=== PATIENT | male | born 1940 | race Caucasian/White ===

== ENCOUNTER 2016-06-15 23:25 | Inpatient (IN) | payer MEDICARE ==
[~2016-06-15] VITALS: Ht 182.9 cm; Wt 112.7 kg
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
[2016-06-16] MEDS ORDERED: DOCU100C5 PO (00:15)
[2016-06-16] MEDS ORDERED: FINA5TAB PO (00:15)
[2016-06-16] MEDS ORDERED: OMEG1CAP38 PO (00:15)
[2016-06-16] MEDS ORDERED: MEMA10TA PO (00:15)
[2016-06-16] MEDS ORDERED: ASPI81TA9 PO (00:15)
[2016-06-16] MEDS ORDERED: MULT1TAB52 PO (00:15)
[2016-06-16] MEDS ORDERED: CYAN10005 PO (00:15)
[2016-06-16] MEDS ORDERED: CHLO25TA4 PO (00:15)
[2016-06-16] MEDS ORDERED: DIVA250T PO ×2 (00:15)
[2016-06-16] MEDS ORDERED: AMLO2.5T PO (00:15)
[2016-06-16] MEDS ORDERED: ACET325T9 PO (00:15)
[2016-06-16] MEDS ORDERED: VITA1TAB3 PO (00:15)
[2016-06-16] MEDS ORDERED: TAMS0.4C97 PO (00:15)
[2016-06-16] MEDS ORDERED: PARO40TA3 PO (00:15)
[2016-06-16] MEDS ORDERED: LORA1TAB PO (00:15)
[2016-06-16] MEDS ORDERED: DONE10TA7 PO (00:15)
[2016-06-16] MEDS ORDERED: THIA250T2 PO (00:37)
[2016-06-16] MEDS ORDERED: OLOP2.5D OU (00:37)
[2016-06-16] MEDS ORDERED: ACET325T21 PO (00:37)
[2016-06-16] MEDS ORDERED: TRAZ50TA15 PO (00:37)
[2016-06-16] MEDS ORDERED: MAGN400O4 PO (00:37)
[2016-06-16] MEDS ORDERED: QUET50TA PO (00:37)
[2016-06-16] MEDS ORDERED: DILT60TA PO (00:37)
[2016-06-16] MEDS ORDERED: QUET100T PO (00:37)
[2016-06-16 00:44] LABS: SALIC 1.6 mg/dL (2.8-20.0)
[2016-06-16 00:45] LABS: ACETAMIN < 2.0 mcg/mL (10-30); ETHANOL < 10 mg/dL (0-10)
[2016-06-16 00:48] LABS: BASO # 0.1 x10^3/uL (0.0-0.2); BASO % 1 % (0-3); EOS # 0.5 x10^3/uL (0.0-0.7); EOS % 6 % (0-3); HEMATOCRIT 44.2 % (39.0-53.0); HEMOGLOBIN 14.3 g/dL (13.0-17.5); LYMPH # 1.8 x10^3/uL (1.0-4.8); LYMPH % 22 % (24-48); MEAN CORPUSCULAR HEMOGLOBIN 30 pg (25-35); MEAN CORPUSCULAR HGB CONC 32 g/dL (31-37); MEAN CORPUSCULAR VOLUME 92 fL (79-100); MONO # 0.9 x10^3/uL (0.0-1.1); MONO % 11 % (0-9); NEUT # 5.3 x10^3uL (1.8-7.7); NEUT % 61 % (31-73); PLATELET COUNT 115 x10^3/uL (140-400); RED BLOOD COUNT 4.82 x10^6/uL (4.30-5.70); RED CELL DISTRIBUTION WIDTH 15.5 % (11.5-14.5); WHITE BLOOD COUNT 8.6 x10^3/uL (4.0-11.0)
[2016-06-16 00:53] LABS: ALBUMIN 3.4 g/dL (3.4-5.0); ALBUMIN/GLOBULIN RATIO 0.9 (1.0-1.7); CALCIUM 8.8 mg/dL (8.5-10.1); POTASSIUM 3.9 mmol/L (3.5-5.1); TOTAL BILIRUBIN 0.2 mg/dL (0.2-1.0); TOTAL PROTEIN 7.3 g/dL (6.4-8.2)
[2016-06-16 01:44] LABS: VAL ACID 41 mcg/mL (50-100)
[2016-06-16 01:52] LABS: BARBITURATES NEG (NEG); BENZODIAZEPINES NEG (NEG); CANNABINOIDS NEG (NEG); COCAINE NEG (NEG); METHADONE NEG (NEG); OPIATES NEG (NEG); PHENCYCLIDINE NEG (NEG)
[2016-06-16 01:54] LABS: BACTERIA,URINE 0 /HPF (0-FEW); BILIRUBIN,URINE NEG (NEG); CLARITY,URINE CLEAR; COLOR,URINE YELLOW; GLUCOSE,URINE NEG (NEG); NITRITE,URINE NEG (NEG); RBC,URINE 0 /HPF (0-2); UROBILINOGEN,URINE 0.2 mg/dL (0.2 mg/dL); WBC,URINE RARE /HPF (0-4)
[2016-06-16 01:55] LABS: AMPHETAMINE/METHAMPHETAMINE NEG (NEG)
--- NOTE | 2016-06-16 02:05 | ACF ---
Admission Criteria Forms PSYCHIATRIC DISORDERS Clinical Indications for Inpatient Care (Place 'X' for any and all applicable criteria): Ongoing inpatient care may be needed for ANY ONE of the following(1)(2)(3)(4)(6) (7)(8): [ ]I. Danger to self or others not manageable at lower level of care. [ ]II. Grave disability (eg, inability to perform self care necessary at lower level of care) [X]III. Agitation or inappropriate behavior interfering with care for primary condition (eg, attempting to discontinue lines or drains prematurely, unable to cooperate with respiratory care) [ ]IV. Severe disability or disorder indicated by ALL of the following: [ ]a) Severe behavioral health disorder-related symptoms or condition indicated by ANY ONE of the following: [ ]i) Severe problem with cognition, memory, judgment, or impulse control [ ]ii) Severe clinical manifestations (eg, hallucinations, delusions, other acute psychotic symptoms, franco, extreme agitation or anxiety) [ ]b) Patient management at lower level of care is not feasible until acute intervention or modification is initiated. Extended stay beyond goal length of stay for the primary condition may be indicated when ANY ONE of the following is present: (1)(2)(3)(4): [ ]a) Patient is a danger to self or others and not manageable at lower level of care. [ ]b) Behavior crisis management, including physical or chemical restraints, is required and is not available at a lower level of care. [ ]c) Behavioral symptoms (e.g., agitation, somnolence, inappropriate behavior) are present, and are not manageable at a lower level of care. [ ]d) Patient cannot understand follow-up treatment and crisis plan. [ ]e) Provider and supports are not sufficiently available at lower level of care. [ ]f) Patient cannot participate (e.g., verify absence of plan for harm) and is in needed of monitoring. The original [employer] content created by [employer] has been revised. The portions of the content which have been revised are identified through the use of italic text or in bold, and [facility] has neither reviewed nor approved the modified material. All other unmodified content is copyright [facility] [employer]. Please see references footnoted in the original [facility] edition 2016 Admission Criteria Met?: Yes MURPHY LAND Jun 16, 2016 02:05
[2016-06-16] MEDS ORDERED: MAG HYDROX/AL HYDROX/SIMETH 30 ML ORAL.SUSP PO PRN (03:15)
[2016-06-16] MEDS ORDERED: MAGNESIUM HYDROXIDE 2,400 MG/30 ML ORAL.SUSP. PO PRN ×2 (03:15→03:45)
[2016-06-16] MEDS ORDERED: ACETAMINOPHEN 325 MG TABLET PO PRN (03:15)
[2016-06-16] MEDS ORDERED: METHYL SALICYLATE/MENTHOL TOPICAL OINTMENT 29GM TUBE. TP PRN (03:15)
[2016-06-16] MEDS: ACETAMINOPHEN 325 MG TABLET PO PRN (04:20)
[2016-06-16 05:12] VITALS: BP 173/79
[2016-06-16] MEDS: LORAZEPAM 1 MG TABLET. PO PRN ×2 (05:57→22:40)
--- NOTE | 2016-06-16 06:43 | EKG ---
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
--- NOTE | 2016-06-16 07:48 | RAD ---
Portable chest, 06/15/2016: History: Altered level of consciousness Comparison is made to a study from 06/26/2011. The heart size and pulmonary vascularity are normal. A density at the cardiac apex is probably due to a prominent epicardial fat pad. No acute infiltrates are seen. There is no evidence of pleural fluid. Mild degenerative change is present in the spine and at both shoulders. IMPRESSION: No acute cardiopulmonary abnormality is detected.
[2016-06-16] MEDS: ASPIRIN ENTERIC COATED 81 MG TABLET.DR. PO SCH (09:14)
[2016-06-16] MEDS: OMEGA-3 FATTY ACIDS/FISH OIL 1,000 MG CAPSULE. PO SCH (09:14)
[2016-06-16] MEDS: MULTIVITAMIN I-VITE TABLET. PO SCH (09:14)
[2016-06-16] MEDS: FINASTERIDE 5 MG TABLET PO SCH (09:14)
[2016-06-16] MEDS: DOCUSATE SODIUM 100 MG CAPSULE PO SCH (09:14)
[2016-06-16] MEDS: CYANOCOBALAMIN (VITAMIN B-12) 1,000 MCG TABLET. PO SCH (09:14)
[2016-06-16] MEDS: DILTIAZEM HCL 120 MG CAP.ER.24H PO SCH (09:14)
[2016-06-16] MEDS: THIAMINE 100 MG TABLET. PO SCH ×2 (09:15→22:19)
[2016-06-16] MEDS: QUEtiapine 50 MG TABLET. PO SCH (09:15)
[2016-06-16] MEDS: DIVALPROEX ER 250 MG TAB.ER.24H. PO SCH ×2 (09:16→22:20)
[2016-06-16] MEDS: DONEPEZIL HCL 10 MG TABLET PO SCH (09:16)
[2016-06-16] MEDS: MEMANTINE 10 MG TABLET. PO SCH ×2 (09:16→22:19)
[2016-06-16] MEDS: KETOTIFEN FUMARATE 0.025% OPHT SOLUTION BOTTLE. OU SCH ×2 (09:19→22:23)
[2016-06-16] MEDS: CHLORPROMAZINE HCL 25 MG PO SCH ×2 (09:20→22:23)
[2016-06-16] MEDS: ACETAMINOPHEN 325 MG TABLET PO SCH ×2 (09:27→22:19)
[2016-06-16 09:30] VITALS: BP 160/92
[2016-06-16 13:41] LABS: THYROID STIM HORMONE (TSH) 6.718 uIU/mL (0.358-3.740)
[2016-06-16 15:54] VITALS: BP 145/78
[2016-06-16 17:09] LABS: T3 TOTAL 91 ng/dL (71-180); THYROXINE 4.5 ug/dL (4.5-12.0)
--- NOTE | 2016-06-16 21:07 | PDOC ---
Exam Jake Demential Exam: Jake Note: Please also refer to the separate dictated note~for this date of service dictated separately.~Patient seen individually. Discussed the patient with Nursing staff reviewed the chart.~Reviewed interim history and current functioning. Reviewed vital signs,~Labs/ Radiology~and current medications noted below. Continue current treatment with the changes noted in the dictated addendum note Assessment: Vital Signs: Vital Signs Date Time Temp Pulse Resp B/P Pulse Ox O2 Delivery O2 Flow Rate FiO2 06/16/16 15:54 97.8 107 20 145/78 94 06/16/16 05:12 Room Air I&O Intake and Output 06/16/16 07:00 # Voids 2 Labs: Laboratory Tests Test 06/16/16 00:18 06/16/16 00:48 06/16/16 01:30 06/16/16 09:35 White Blood Count 8.6x10^3/uL (4.0-11.0) Red Blood Count 4.82x10^6/uL (4.30-5.70) Hemoglobin 14.3g/dL (13.0-17.5) Hematocrit 44.2% (39.0-53.0) Mean Corpuscular Volume 92fL (79-100) Mean Corpuscular Hemoglobin 30pg (25-35) Mean Corpuscular Hemoglobin Concent 32g/dL (31-37) Red Cell Distribution Width 15.5% (11.5-14.5) H Platelet Count 115x10^3/uL (140-400) L Neutrophils (%) (Auto) 61% (31-73) Lymphocytes (%) (Auto) 22% (24-48) L Monocytes (%) (Auto) 11% (0-9) H Eosinophils (%) (Auto) 6% (0-3) H Basophils (%) (Auto) 1% (0-3) Neutrophils # (Auto) 5.3x10^3uL (1.8-7.7) Lymphocytes # (Auto) 1.8x10^3/uL (1.0-4.8) Monocytes # (Auto) 0.9x10^3/uL (0.0-1.1) Eosinophils # (Auto) 0.5x10^3/uL (0.0-0.7) Basophils # (Auto) 0.1x10^3/uL (0.0-0.2) Prothrombin Time 10.4SEC (9.4-11.4) Prothrombin Time INR 1.0 (0.9-1.1) Sodium Level 146mmol/L (136-145) H Potassium Level 3.9mmol/L (3.5-5.1) Chloride Level 108mmol/L (98-107) H Carbon Dioxide Level 29mmol/L (21-32) Anion Gap 9 (6-14) Blood Urea Nitrogen 17mg/dL (8-26) Creatinine 1.0mg/dL (0.7-1.3) Estimated GFR (Cockcroft-Gault) 73.0 BUN/Creatinine Ratio 17 (6-20) Glucose Level 97mg/dL (70-99) Calcium Level 8.8mg/dL (8.5-10.1) Total Bilirubin 0.2mg/dL (0.2-1.0) Aspartate Amino Transferase (AST) 6U/L (15-37) L Alanine Aminotransferase (ALT) 17U/L (16-63) Alkaline Phosphatase 74U/L (46-116) Ammonia 29mcmol/L (11-34) Total Protein 7.3g/dL (6.4-8.2) Albumin 3.4g/dL (3.4-5.0) Albumin/Globulin Ratio 0.9 (1.0-1.7) L Salicylates Level 1.6mg/dL (2.8-20.0) L Salicylate Last Dose Date Unknown Salicylate Last Dose Time Unknown Acetaminophen Level < 2.0mcg/mL (10-30) L Acetaminophen Last Dose Date Unknown Acetaminophen Last Dose Time Unknown Valproic Acid Level 41mcg/mL (50-100) L Valproic Acid Last Dose Date Unknown Valproic Acid Last Dose Time Unknown Ethyl Alcohol Level < 10mg/dL (0-10) Acetone Level Neg (NEG) Magnesium Level 2.1mg/dL (1.8-2.4) Iron Level 48ug/dL (65-175) L Total Iron Binding Capacity 294ug/dL (250-450) Iron Saturation 16% (15-34) Triglycerides Level 248mg/dL (0-150) H Cholesterol Level 198mg/dL (0-200) LDL Cholesterol, Calculated 120mg/dL (0-100) H VLDL Cholesterol, Calculated 49mg/dL (0-40) H HDL Cholesterol 29mg/dL (40-60) L Cholesterol/HDL Ratio 6.0 Vitamin B12 Level 1569pg/mL (247-911) H Thyroid Stimulating Hormone (TSH) 6.718uIU/mL (0.358-3.740) Free Triiodothyronine (T3) pg/mL 2.36pg/mL (2.18-3.98) Urine Collection Type Unknown Urine Color Yellow Urine Clarity Clear Urine pH 5.5 Urine Specific [place] 1.015 Urine Protein Neg (NEG-TRACE) Urine Glucose (UA) Negmg/dL (NEG) Urine Ketones (Stick) Negmg/dL (NEG) Urine Blood Neg (NEG) Urine Nitrite Neg (NEG) Urine Bilirubin Neg (NEG) Urine Urobilinogen Dipstick 0.2mg/dL (0.2 mg/dL) Urine Leukocyte Esterase Neg (NEG) Urine RBC 0/HPF (0-2) Urine WBC Rare/HPF (0-4) Urine Squamous Epithelial Cells None/LPF Urine Bacteria 0/HPF (0-FEW) Urine Opiates Screen Neg (NEG) Urine Methadone Screen Neg (NEG) Urine Barbiturates Neg (NEG) Urine Phencyclidine Screen Neg (NEG) Urine Amphetamine/Methamphetamine Neg (NEG) Urine Benzodiazepines Screen Neg (NEG) Urine Cocaine Screen Neg (NEG) Urine Cannabinoids Screen Neg (NEG) Urine Ethyl Alcohol Neg (NEG) 25-Hydroxy Vitamin D Total Pending Thyroxine (T4) 4.5ug/dL (4.5-12.0) Total Triiodothyronine (TT3) 91ng/dL (71-180) RPR Titer Additional Testing Pending Current Medications: Meds: Current Medications Acetaminophen (Tylenol) 650 mg PRN Q6HRS PRN PO PAIN / TEMP; Start 06/16/16 at 03:15; Status Cancel Multi-Ingredient Ointment (Analgesic [place]) 1 sajan PRN QID PRN TP MUSCLE PAIN; Start 06/16/16 at 03:15 Al Hydroxide/Mg Hydroxide (Mylanta Plus Xs) 15 ml PRN AFTMEALHC PRN PO DYSPEPSIA; Start 06/16/16 at 03:15 Magnesium Hydroxide (Milk Of Magnesia) 2,400 mg PRN QHS PRN PO CONSTIPATION; Start 06/16/16 at 03:15 Chlorpromazine HCl (Thorazine) 12.5 mg BID PO Last administered on 06/16/16 09 :20; Start 06/16/16 at 09:00 Divalproex Sodium (Depakote Er) 375 mg BID PO Last administered on 06/16/16 09 :16; Start 06/16/16 at 09:00 Donepezil HCl (Aricept) 10 mg DAILY PO Last administered on 06/16/16 09:16; Start 06/16/16 at 09:00 Lorazepam (Ativan) 1 mg PRN Q4HRS PRN PO ANXIETY / AGITATION Last administered on 06/16/16 05:57; Start 06/16/16 at 03:45 Memantine (Namenda) 10 mg BID PO Last administered on 06/16/16 09:16; Start at 09:00 Quetiapine Fumarate (SEROquel) 50 mg DAILY PO Last administered on 06/16/16 09 :15; Start 06/16/16 at 09:00 Quetiapine Fumarate (SEROquel) 100 mg HS PO ; Start 06/16/16 at 21:00 Trazodone HCl (Desyrel) 50 mg HS PO ; Start 06/16/16 at 21:00 Acetaminophen (Tylenol) 650 mg BID PO Last administered on 06/16/16 09:27; Start 06/16/16 at 09:00 Acetaminophen (Tylenol) 650 mg PRN Q4HRS PRN PO Pain/Fever Last administered on 06/16/16 04:20; Start 06/16/16 at 03:45 Aspirin (Aspirin Enteric Coated) 81 mg DAILY PO Last administered on 06/16/16 09:14; Start 06/16/16 at 09:00 Cyanocobalamin (Vitamin B-12) 1,000 mcg DAILY PO Last administered on 09:14; Start 06/16/16 at 09:00 Docusate Sodium (Colace) 100 mg DAILY PO Last administered on 06/16/16 09:14; Start 06/16/16 at 09:00 Finasteride (Proscar) 5 mg DAILY PO Last administered on 06/16/16 09:14; Start 06/16/16 at 09:00 Magnesium Hydroxide (Milk Of Magnesia) 400 mg PRN DAILY PRN PO CONSTIPATION; Start 06/16/16 at 03:45 Tamsulosin HCl (Flomax) 0.4 mg QHS PO ; Start 06/16/16 at 21:00 Diltiazem HCl (Cardizem 24hr Cd) 120 mg DAILY PO Last administered on 09:14; Start 06/16/16 at 09:00 Multivitamins/ Minerals (I-Matthew) 1 tab DAILY PO Supplement Last administered on 06/16/16 09:14; Start 06/16/16 at 09:00 Ketotifen Fumarate (Zaditor) 1 drop BID OU Last administered on 06/16/16 09:19 ; Start 06/16/16 at 09:00 Fish Oil (Fish Oil) 1,000 mg DAILY PO Supplement Last administered on 06/16/16 09:14; Start 06/16/16 at 09:00 Thiamine HCl (Vitamin B-1) 250 mg BID PO supplement Last administered on 09:15; Start 06/16/16 at 09:00 Trazodone HCl (Desyrel) 50 mg PRN QHS PRN PO insomnia; Start 06/16/16 at 21:00 Active Scripts Active Reported Acetaminophen 325 Mg Tablet 650 Mg PO BID Trazodone Hcl 50 Mg Tablet 50 Mg PO HS Thiamine Hcl 250 Mg Tablet 250 Mg PO BID Quetiapine Fumarate 50 Mg Tablet 50 Mg PO DAILY Quetiapine Fumarate 100 Mg Tablet 100 Mg PO HS Milk Of Magnesia (Magnesium Hydroxide) 400 Mg/5 Ml Oral.susp 400 Mg PO PRN DAILY PRN Pataday (Olopatadine Hcl) 2.5 Ml Drops 1 Drop OU PRN PRN Diltiazem Hcl Tablet (Diltiazem Hcl) 60 Mg Tablet 120 Mg PO DAILY Chlorpromazine Hcl 25 Mg Tablet 12.5 Mg PO BID Lorazepam 1 Mg Tablet 1 Mg PO PRN Q4HRS PRN Proscar (Finasteride) 5 Mg Tablet 5 Mg PO DAILY Flomax (Tamsulosin Hcl) 0.4 Mg Cap.er.24h 0.4 Mg PO QHS Hardy 3 Fish Oil Softgel (Hardy-3 Fatty Acids/Fish Oil) 1 Each Capsule.dr 1,200 Mg PO DAILY Donepezil Hcl 10 Mg Tablet 10 Mg PO DAILY Depakote Er (Divalproex Sodium) 250 Mg Tab.er.24h 375 Mg PO BID Namenda (Memantine Hcl) 10 Mg Tablet 10 Mg PO BID Tylenol (Acetaminophen) 325 Mg Tablet 650 Mg PO PRN Q4HRS PRN Vitamin B-12 (Cyanocobalamin (Vitamin B-12)) 1,000 Mcg Tablet 1,000 Mcg PO DAILY Aspirin Ec (Aspirin) 81 Mg Tablet.dr 81 Mg PO DAILY Multivitamins (Multivitamin) 1 Each Tablet 1 Tab PO DAILY Docusate Sodium 100 Mg Capsule 100 Mg PO DAILY Diagnosis: Problems: (1) Agitation NATASHA LAIRD MD Jun 16, 2016 21:07
[2016-06-16] MEDS: traZODone 50 MG TABLET. PO SCH (22:23)
[2016-06-16] MEDS: QUEtiapine 100 MG TABLET. PO SCH (22:23)
[2016-06-16] MEDS: TAMSULOSIN 0.4 MG CAP.ER.24H. PO SCH (22:23)
--- NOTE | 2016-06-17 00:05 | CONS ---
DATE OF CONSULTATION: 06/16/2016 REASON FOR CONSULTATION: Medical management. HISTORY OF PRESENT ILLNESS: The patient is a 75-year-old male patient, a resident at [facility], who was admitted because he is agitated, combative, eloped from the facility, at the staff, threats to break the door, lacks self-care, refusing to shower, all this is in the background of dementia with behavioral disorder. He was evaluated in the Emergency Room, was [facility] for inpatient psychiatric stabilization. PAST MEDICAL HISTORY: Significant for hypertension, benign prostatic hypertrophy, chronic back pain and chronic constipation. PAST PSYCHIATRIC HISTORY: Significant for dementia with behavioral disorder. ALLERGIES: He has no known drug allergies. MEDICATIONS: He is currently on following medications: He is on Tylenol 650 mg every 4 hours, Tylenol 650 mg p.o. b.i.d. scheduled, aspirin 81 mg once a day, chlorpromazine 12.5 mg p.o. b.i.d., cyanocobalamin 1000 mcg once a day, diltiazem hydrochloride 120 mg once a day, divalproex sodium 375 mg p.o. b.i.d., Colace 100 mg once a day, Aricept 10 mg once a day, finasteride 5 mg once a day, lorazepam 1 mg every 4 hours, milk of magnesia 30 mL p.o. daily p.r.n. for constipation, Namenda 10 mg twice a day, multivitamin 1 tablet once a day, olopatadine 1 drop to both eyes as needed, omega 3 fatty acid 1200 mg once a day, Seroquel 100 mg at bedtime, Seroquel 50 mg daily and Flomax 0.4 mg once a day at bedtime. He is on thiamine 250 mg p.o. b.i.d. and trazodone 50 mg at bedtime for insomnia. FAMILY HISTORY: Unremarkable. SOCIAL HISTORY: He is a resident at [facility] in [place]. On questioning him, he did complain of back pain that apparently radiates to both legs. Denied any bladder or bowel problems. PHYSICAL EXAMINATION: GENERAL: When I examined him, he looked slightly pale, but no jaundice, cyanosis, or thyromegaly. No jugular venous distention. No lower limb edema. VITAL SIGNS: His heart rate was 107, blood pressure was 145/78, temperature was 97.8, respiratory rate 20, and oxygen saturation was 94% on room air. HEAD, EYES, EARS, NOSE, AND THROAT: Showed normocephalic, atraumatic. NECK: Supple. HEART: Showed normal first and second heart sounds with no gallop, rub or murmur. CHEST: Clear to auscultation. No crepitation or rhonchi. ABDOMEN: Distended, soft, nontender. NEUROLOGIC: He was awake, alert, responding appropriately. Cranial nerves intact. He has prominent horizontal nystagmus. EXTREMITIES: He moves his extremities without difficulty. Apparently, is able to ambulate without assistance or assistive devices. LABORATORY DATA: His lab work this morning showed a white cell count 8600, hemoglobin 14.3, hematocrit 44, MCV 92, and platelet count 215,000 with normal manual differential. His chemistry showed that his serum sodium was 146, potassium 3.9, chloride 108, bicarbonate 29, anion gap of 9, BUN 17, creatinine 1, estimated GFR was 73 mL per minute. His glucose was 97. Calcium was 8.8. Total bilirubin, AST, ALT, alkaline phosphatase were normal. Total protein was 7.3, albumin 3.4. His prothrombin time was 10.4, INR of 1. Urinalysis showed the urine was essentially unremarkable. It was negative for nitrite, leukocyte esterase. There are no rbc's, no wbc's, and no bacteria. His urine toxicology screen was also unremarkable. He has had a chest x-ray, which showed no acute cardiopulmonary abnormality detected. PLAN: So, all in all, the patient seemed to be medically stable. His vital signs are all within acceptable range, although his blood pressure sometimes to be slightly higher. His lab work is all within acceptable range except his thrombocytopenia. So, from medical point of view, he seems to be stable. I will obviously follow all the lab work that is still pending at the time and make any appropriate recommendations. Thank you, Dr. Rayo for allowing me to participate in the care of this patient. ELIESER STEPHENSON MD DR: LATESHA/ozzie JOB#: [id number] / [id number]
[2016-06-17] MEDS: ACETAMINOPHEN 325 MG TABLET PO SCH ×2 (05:24→20:46)
[2016-06-17] MEDS: KETOTIFEN FUMARATE 0.025% OPHT SOLUTION BOTTLE. OU SCH ×2 (09:54→20:51)
[2016-06-17] MEDS: MULTIVITAMIN I-VITE TABLET. PO SCH (09:54)
[2016-06-17] MEDS: CYANOCOBALAMIN (VITAMIN B-12) 1,000 MCG TABLET. PO SCH (09:55)
[2016-06-17] MEDS: DIVALPROEX ER 250 MG TAB.ER.24H. PO SCH (09:55)
[2016-06-17] MEDS: OMEGA-3 FATTY ACIDS/FISH OIL 1,000 MG CAPSULE. PO SCH (09:55)
[2016-06-17] MEDS: QUEtiapine 50 MG TABLET. PO SCH (09:55)
[2016-06-17] MEDS: THIAMINE 100 MG TABLET. PO SCH ×2 (09:56→20:46)
[2016-06-17] MEDS: DOCUSATE SODIUM 100 MG CAPSULE PO SCH (09:56)
[2016-06-17] MEDS: MEMANTINE 10 MG TABLET. PO SCH ×2 (09:56→20:46)
[2016-06-17] MEDS: ASPIRIN ENTERIC COATED 81 MG TABLET.DR. PO SCH (09:57)
[2016-06-17] MEDS: DONEPEZIL HCL 10 MG TABLET PO SCH (09:57)
[2016-06-17] MEDS: FINASTERIDE 5 MG TABLET PO SCH (09:57)
[2016-06-17] MEDS: CHLORPROMAZINE HCL 25 MG PO SCH ×2 (09:58→21:05)
[2016-06-17 10:00] VITALS: BP 127/87
[2016-06-17] MEDS: DILTIAZEM HCL 120 MG CAP.ER.24H PO SCH (10:09)
[2016-06-17 16:15] VITALS: BP 103/72
[2016-06-17 17:12] LABS: THYROXINE 4.3 ug/dL (4.5-12.0)
[2016-06-17] MEDS: TAMSULOSIN 0.4 MG CAP.ER.24H. PO SCH (20:46)
[2016-06-17] MEDS: traZODone 50 MG TABLET. PO SCH (20:46)
[2016-06-17] MEDS: QUEtiapine 100 MG TABLET. PO SCH (20:46)
[2016-06-17] MEDS: DIVALPROEX SODIUM 125 MG TABLET.DR. PO SCH (20:50)
[2016-06-17] MEDS: traZODone 50 MG TABLET. PO PRN (20:50)
[2016-06-18] MEDS: LEVOTHYROXINE 25 MCG TABLET. PO SCH (06:05)
[2016-06-18 06:14] VITALS: BP 125/94
[2016-06-18] MEDS: ASPIRIN ENTERIC COATED 81 MG TABLET.DR. PO SCH (09:50)
[2016-06-18] MEDS: DONEPEZIL HCL 10 MG TABLET PO SCH (09:50)
[2016-06-18] MEDS: KETOTIFEN FUMARATE 0.025% OPHT SOLUTION BOTTLE. OU SCH ×2 (09:50→19:30)
[2016-06-18] MEDS: DIVALPROEX SODIUM 125 MG TABLET.DR. PO SCH ×2 (09:50→19:31)
[2016-06-18] MEDS: OMEGA-3 FATTY ACIDS/FISH OIL 1,000 MG CAPSULE. PO SCH (09:50)
[2016-06-18] MEDS: FINASTERIDE 5 MG TABLET PO SCH (09:50)
[2016-06-18] MEDS: QUEtiapine 50 MG TABLET. PO SCH (09:50)
[2016-06-18] MEDS: THIAMINE 100 MG TABLET. PO SCH ×2 (09:50→19:34)
[2016-06-18] MEDS: CHLORPROMAZINE HCL 25 MG PO SCH ×2 (09:51→19:35)
[2016-06-18] MEDS: MEMANTINE 10 MG TABLET. PO SCH ×2 (09:51→19:31)
[2016-06-18] MEDS: DOCUSATE SODIUM 100 MG CAPSULE PO SCH (09:51)
[2016-06-18] MEDS: CYANOCOBALAMIN (VITAMIN B-12) 1,000 MCG TABLET. PO SCH (09:51)
[2016-06-18] MEDS: MULTIVITAMIN I-VITE TABLET. PO SCH (09:51)
[2016-06-18] MEDS: DILTIAZEM HCL 120 MG CAP.ER.24H PO SCH (09:51)
[2016-06-18] MEDS: ACETAMINOPHEN 325 MG TABLET PO SCH ×2 (09:52→19:34)
[2016-06-18 16:22] VITALS: BP 123/75
[2016-06-18] MEDS: TAMSULOSIN 0.4 MG CAP.ER.24H. PO SCH (19:31)
[2016-06-18] MEDS: traZODone 50 MG TABLET. PO SCH (19:31)
[2016-06-18] MEDS: QUEtiapine 100 MG TABLET. PO SCH (19:34)
[2016-06-19] MEDS: traZODone 50 MG TABLET. PO PRN (00:02)
[2016-06-19] MEDS: ACETAMINOPHEN 325 MG TABLET PO PRN ×2 (00:03→15:06)
[2016-06-19 05:48] VITALS: BP 122/70
[2016-06-19] MEDS: LEVOTHYROXINE 25 MCG TABLET. PO SCH (06:00)
[2016-06-19] MEDS: KETOTIFEN FUMARATE 0.025% OPHT SOLUTION BOTTLE. OU SCH ×2 (09:00→20:06)
--- NOTE | 2016-06-19 09:16 | PDOC ---
Exam Jake Demential Exam: Jake Note: Please also refer to the separate dictated note~for this date of service dictated separately.~Patient seen individually. Discussed the patient with Nursing staff reviewed the chart.~Reviewed interim history and current functioning. Reviewed vital signs,~Labs/ Radiology~and current medications noted below. Continue current treatment with the changes noted in the dictated addendum note Assessment: Vital Signs: Vital Signs Date Time Temp Pulse Resp B/P Pulse Ox O2 Delivery O2 Flow Rate FiO2 06/19/16 05:48 97.0 65 21 122/70 95 06/17/16 16:15 Room Air I&O Intake and Output 06/19/16 07:00 Intake Total 840 ml Balance 840 ml Intake Oral 840 ml Current Medications: Meds: Current Medications Acetaminophen (Tylenol) 650 mg PRN Q6HRS PRN PO PAIN / TEMP; Start 06/16/16 at 03:15; Status Cancel Multi-Ingredient Ointment (Analgesic [place]) 1 sajan PRN QID PRN TP MUSCLE PAIN; Start 06/16/16 at 03:15 Al Hydroxide/Mg Hydroxide (Mylanta Plus Xs) 15 ml PRN AFTMEALHC PRN PO DYSPEPSIA; Start 06/16/16 at 03:15 Magnesium Hydroxide (Milk Of Magnesia) 2,400 mg PRN QHS PRN PO CONSTIPATION; Start 06/16/16 at 03:15 Chlorpromazine HCl (Thorazine) 12.5 mg BID PO Last administered on 06/18/16 19 :35; Start 06/16/16 at 09:00 Divalproex Sodium (Depakote Er) 375 mg BID PO Last administered on 06/17/16 09 :55; Start 06/16/16 at 09:00; Stop 06/17/16 at 15:02; Status DC Donepezil HCl (Aricept) 10 mg DAILY PO Last administered on 06/18/16 09:50; Start 06/16/16 at 09:00 Lorazepam (Ativan) 1 mg PRN Q4HRS PRN PO ANXIETY / AGITATION Last administered on 06/16/16 22:40; Start 06/16/16 at 03:45 Memantine (Namenda) 10 mg BID PO Last administered on 06/18/16 19:31; Start at 09:00 Quetiapine Fumarate (SEROquel) 50 mg DAILY PO Last administered on 06/18/16 09 :50; Start 06/16/16 at 09:00 Quetiapine Fumarate (SEROquel) 100 mg HS PO Last administered on 06/18/16 19: 34; Start 06/16/16 at 21:00 Trazodone HCl (Desyrel) 50 mg HS PO Last administered on 06/18/16 19:31; Start 06/16/16 at 21:00 Acetaminophen (Tylenol) 650 mg BID PO Last administered on 06/18/16 19:34; Start 06/16/16 at 09:00 Acetaminophen (Tylenol) 650 mg PRN Q4HRS PRN PO Pain/Fever Last administered on 06/19/16 00:03; Start 06/16/16 at 03:45 Aspirin (Aspirin Enteric Coated) 81 mg DAILY PO Last administered on 06/18/16 09:50; Start 06/16/16 at 09:00 Cyanocobalamin (Vitamin B-12) 1,000 mcg DAILY PO Last administered on 09:51; Start 06/16/16 at 09:00 Docusate Sodium (Colace) 100 mg DAILY PO Last administered on 06/18/16 09:51; Start 06/16/16 at 09:00 Finasteride (Proscar) 5 mg DAILY PO Last administered on 06/18/16 09:50; Start 06/16/16 at 09:00 Magnesium Hydroxide (Milk Of Magnesia) 400 mg PRN DAILY PRN PO CONSTIPATION; Start 06/16/16 at 03:45 Tamsulosin HCl (Flomax) 0.4 mg QHS PO Last administered on 06/18/16 19:31; Start 06/16/16 at 21:00 Diltiazem HCl (Cardizem 24hr Cd) 120 mg DAILY PO Last administered on 09:51; Start 06/16/16 at 09:00 Multivitamins/ Minerals (I-Matthew) 1 tab DAILY PO Supplement Last administered on 06/18/16 09:51; Start 06/16/16 at 09:00 Ketotifen Fumarate (Zaditor) 1 drop BID OU Last administered on 06/17/16 09:54 ; Start 06/16/16 at 09:00; Stop 06/17/16 at 15:00; Status DC Fish Oil (Fish Oil) 1,000 mg DAILY PO Supplement Last administered on 06/18/16 09:50; Start 06/16/16 at 09:00 Thiamine HCl (Vitamin B-1) 250 mg BID PO supplement Last administered on 19:34; Start 06/16/16 at 09:00 Trazodone HCl (Desyrel) 50 mg PRN QHS PRN PO insomnia Last administered on 06/19 00:02; Start 06/16/16 at 21:00 Ketotifen Fumarate (Zaditor) 1 drop BID OU Last administered on 06/18/16 19:30 ; Start 06/17/16 at 15:00 Divalproex Sodium (Depakote) 375 mg BID PO Last administered on 06/18/16 19:31 ; Start 06/17/16 at 21:00 Levothyroxine Sodium (Synthroid) 25 mcg DAILY07 PO Last administered on 06:00; Start 06/18/16 at 07:00 Vitamin D (Vitamin D3) 50,000 unit WEEKLY PO ; Start 06/24/16 at 09:00 Active Scripts Active Reported Acetaminophen 325 Mg Tablet 650 Mg PO BID Trazodone Hcl 50 Mg Tablet 50 Mg PO HS Thiamine Hcl 250 Mg Tablet 250 Mg PO BID Quetiapine Fumarate 50 Mg Tablet 50 Mg PO DAILY Quetiapine Fumarate 100 Mg Tablet 100 Mg PO HS Milk Of Magnesia (Magnesium Hydroxide) 400 Mg/5 Ml Oral.susp 400 Mg PO PRN DAILY PRN Pataday (Olopatadine Hcl) 2.5 Ml Drops 1 Drop OU PRN PRN Diltiazem Hcl Tablet (Diltiazem Hcl) 60 Mg Tablet 120 Mg PO DAILY Chlorpromazine Hcl 25 Mg Tablet 12.5 Mg PO BID Lorazepam 1 Mg Tablet 1 Mg PO PRN Q4HRS PRN Proscar (Finasteride) 5 Mg Tablet 5 Mg PO DAILY Flomax (Tamsulosin Hcl) 0.4 Mg Cap.er.24h 0.4 Mg PO QHS [place] 3 Fish Oil Softgel ([place]-3 Fatty Acids/Fish Oil) 1 Each Capsule.dr 1,200 Mg PO DAILY Donepezil Hcl 10 Mg Tablet 10 Mg PO DAILY Depakote Er (Divalproex Sodium) 250 Mg Tab.er.24h 375 Mg PO BID Namenda (Memantine Hcl) 10 Mg Tablet 10 Mg PO BID Tylenol (Acetaminophen) 325 Mg Tablet 650 Mg PO PRN Q4HRS PRN Vitamin B-12 (Cyanocobalamin (Vitamin B-12)) 1,000 Mcg Tablet 1,000 Mcg PO DAILY Aspirin Ec (Aspirin) 81 Mg Tablet.dr 81 Mg PO DAILY Multivitamins (Multivitamin) 1 Each Tablet 1 Tab PO DAILY Docusate Sodium 100 Mg Capsule 100 Mg PO DAILY Diagnosis: Problems: (1) Agitation NATASHA LAIRD MD Jun 19, 2016 09:16
--- NOTE | 2016-06-19 10:08 | RAD ---
CT of the head without contrast, 06/19/2016: History: Recent fall, mental status change Comparison is made to a study from 06/28/2011. There is moderate cerebral atrophy. The ventricles are mildly enlarged on a compensatory basis. There is no shift of the midline structures. There is no evidence of acute intracranial hemorrhage or mass effect. There is mucosal thickening in the paranasal sinuses. There is a defect in the medial wall of the left maxillary sinus, presumably postsurgical. A small amount of debris is present posteriorly in the right sphenoid sinus. Soft tissue densities in the nasopharynx suggests the presence of polyposis. IMPRESSION: 1. Cerebral atrophy. 2. No acute intracranial abnormality is detected. PQRS Compliance Statement: One or more of the following individualized dose reduction techniques were utilized for this examination: 1. Automated exposure control 2. Adjustment of the mA and/or kV according to patient size 3. Use of iterative reconstruction technique
[2016-06-19] MEDS: CHLORPROMAZINE HCL 25 MG PO SCH ×2 (10:17→20:06)
[2016-06-19] MEDS: ACETAMINOPHEN 325 MG TABLET PO SCH ×2 (10:18→20:02)
[2016-06-19] MEDS: DOCUSATE SODIUM 100 MG CAPSULE PO SCH (10:18)
[2016-06-19] MEDS: OMEGA-3 FATTY ACIDS/FISH OIL 1,000 MG CAPSULE. PO SCH (10:18)
[2016-06-19] MEDS: MEMANTINE 10 MG TABLET. PO SCH ×2 (10:18→20:03)
[2016-06-19] MEDS: DIVALPROEX SODIUM 125 MG TABLET.DR. PO SCH ×2 (10:18→20:02)
[2016-06-19] MEDS: DONEPEZIL HCL 10 MG TABLET PO SCH (10:18)
[2016-06-19] MEDS: MULTIVITAMIN I-VITE TABLET. PO SCH (10:19)
[2016-06-19] MEDS: DILTIAZEM HCL 120 MG CAP.ER.24H PO SCH (10:19)
[2016-06-19] MEDS: FINASTERIDE 5 MG TABLET PO SCH (10:19)
[2016-06-19] MEDS: CYANOCOBALAMIN (VITAMIN B-12) 1,000 MCG TABLET. PO SCH (10:19)
[2016-06-19] MEDS: THIAMINE 100 MG TABLET. PO SCH ×2 (10:19→20:03)
[2016-06-19] MEDS: ASPIRIN ENTERIC COATED 81 MG TABLET.DR. PO SCH (10:19)
[2016-06-19] MEDS: QUEtiapine 50 MG TABLET. PO SCH (10:19)
[2016-06-19 16:01] VITALS: BP 125/70
[2016-06-19] MEDS: QUEtiapine 100 MG TABLET. PO SCH (20:03)
[2016-06-19] MEDS: traZODone 50 MG TABLET. PO SCH (20:03)
[2016-06-19] MEDS: TAMSULOSIN 0.4 MG CAP.ER.24H. PO SCH (20:03)
--- NOTE | 2016-06-20 01:58 | PN ---
DATE: 06/17/2016 PSYCHIATRIC PROGRESS NOTE This is a late entry of 06/17/2016. Covers elements not covered in my initial note. SUBJECTIVE: The patient was seen individually, also staffed at a treatment team meeting with the entire team, and his family attended this conference. REVIEW OF SYSTEMS: Reviewed the patient's history, diagnosis, current functioning, discharge, aftercare plans at length. Overall, the patient remains confused, somewhat withdrawn, not aggressive. No CV, , eye, ENT or pulmonary system symptoms on review. Reliability poor. He gets agitated at times thinking he has been robbed, gets pacing and anxious. MENTAL STATUS EXAM: Oriented to himself. Insight, judgment, recent and remote memory, attention, concentration, fund of knowledge poor, consistent with his diagnosis. LABORATORY DATA: Reviewed. IMPRESSION: Major neurocognitive disorder, Alzheimer, vascular with depression, delusions and behavioral disturbance. Rest diagnoses unchanged. PLAN: Continue current psychotropics including Depakote level is 41, even though slightly subtherapeutic , it is adequate for now. We may have to reassess this depending on his progress. MAN Josh LAIRD MD DR: ONEYDA/ozzie JOB#: [id number] / [id number]
--- NOTE | 2016-06-20 02:02 | PN ---
DATE: 06/18/2016 PSYCHIATRIC PROGRESS NOTE This is a late entry for 06/18/2016, covers elements not covered in my initial note. SUBJECTIVE: Temperature 97.1, BP 125/94, pulse 85, respirations 16. Overall, per nursing report, cooperative with medications and assessment. Slightly irritable at night, restless at night. Reviewed further information from the family about his past history of alcohol abuse. Daughter wants a Neurology consult and CT head, given the above concerns and we will go ahead and do both of these. He is noncompliant with a walker looking for his ring and watch, believe it has been stolen. REVIEW OF SYSTEMS: No CV, , eye, ENT or pulmonary system symptoms on review. Reliability poor. MENTAL STATUS EXAM: Oriented to himself. Insight, judgment, recent and remote memory, attention, concentration, fund of knowledge poor, consistent with his diagnosis mentioned in my initial note. IMPRESSION: Major neurocognitive disorder, Alzheimer, vascular with depression, delusion and behavioral disturbance; anxiety disorder, unspecified; impulse control disorder, unspecified. PLAN: Increase the Depakote from 375 mg b.i.d. to 500 mg b.i.d. Check labs level. Adjust further as clinically indicated. Maintain chlorpromazine 12.5 mg b.i.d., Aricept 10 mg a day, Ativan p.r.n., Namenda 10 mg b.i.d., Seroquel 50 mg daily and 100 mg at night, and trazodone 50 mg at bedtime. MAN Josh LAIRD MD DR: ONEYDA/ozzie JOB#: [id number] / [id number]
[2016-06-20 06:01] VITALS: BP 126/76
[2016-06-20] MEDS: LEVOTHYROXINE 25 MCG TABLET. PO SCH (06:07)
[2016-06-20] MEDS: DILTIAZEM HCL 120 MG CAP.ER.24H PO SCH (08:13)
[2016-06-20] MEDS: DONEPEZIL HCL 10 MG TABLET PO SCH (08:13)
[2016-06-20] MEDS: FINASTERIDE 5 MG TABLET PO SCH (08:13)
[2016-06-20] MEDS: OMEGA-3 FATTY ACIDS/FISH OIL 1,000 MG CAPSULE. PO SCH (08:13)
[2016-06-20] MEDS: QUEtiapine 50 MG TABLET. PO SCH (08:13)
[2016-06-20] MEDS: ACETAMINOPHEN 325 MG TABLET PO SCH ×2 (08:14→19:32)
[2016-06-20] MEDS: THIAMINE 100 MG TABLET. PO SCH ×2 (08:14→19:32)
[2016-06-20] MEDS: ASPIRIN ENTERIC COATED 81 MG TABLET.DR. PO SCH (08:14)
[2016-06-20] MEDS: DOCUSATE SODIUM 100 MG CAPSULE PO SCH (08:14)
[2016-06-20] MEDS: DIVALPROEX SODIUM 125 MG TABLET.DR. PO SCH ×2 (08:14→19:31)
[2016-06-20] MEDS: MEMANTINE 10 MG TABLET. PO SCH ×2 (08:14→19:33)
[2016-06-20] MEDS: CYANOCOBALAMIN (VITAMIN B-12) 1,000 MCG TABLET. PO SCH (08:14)
[2016-06-20] MEDS: MULTIVITAMIN I-VITE TABLET. PO SCH (08:14)
[2016-06-20] MEDS: CHLORPROMAZINE HCL 25 MG PO SCH ×2 (08:15→19:35)
[2016-06-20] MEDS: KETOTIFEN FUMARATE 0.025% OPHT SOLUTION BOTTLE. OU SCH ×2 (08:18→19:35)
[2016-06-20 16:11] VITALS: BP 155/95
[2016-06-20] MEDS: traZODone 50 MG TABLET. PO SCH (19:32)
[2016-06-20] MEDS: QUEtiapine 100 MG TABLET. PO SCH (19:32)
[2016-06-20] MEDS: TAMSULOSIN 0.4 MG CAP.ER.24H. PO SCH (19:33)
--- NOTE | 2016-06-20 21:58 | PDOC ---
Exam Jake Demential Exam: Jake Note: Please also refer to the separate dictated note~for this date of service dictated separately.~Patient seen individually. Discussed the patient with Nursing staff reviewed the chart.~Reviewed interim history and current functioning. Reviewed vital signs,~Labs/ Radiology~and current medications noted below. Continue current treatment with the changes noted in the dictated addendum note Assessment: Vital Signs: Vital Signs Date Time Temp Pulse Resp B/P Pulse Ox O2 Delivery O2 Flow Rate FiO2 06/20/16 16:11 97.8 85 18 155/95 96 06/20/16 06:01 Room Air I&O Intake and Output 06/20/16 07:00 Intake Total 600 ml Balance 600 ml Intake Oral 600 ml Current Medications: Meds: Current Medications Acetaminophen (Tylenol) 650 mg PRN Q6HRS PRN PO PAIN / TEMP; Start 06/16/16 at 03:15; Status Cancel Multi-Ingredient Ointment (Analgesic [place]) 1 sajan PRN QID PRN TP MUSCLE PAIN; Start 06/16/16 at 03:15 Al Hydroxide/Mg Hydroxide (Mylanta Plus Xs) 15 ml PRN AFTMEALHC PRN PO DYSPEPSIA; Start 06/16/16 at 03:15 Magnesium Hydroxide (Milk Of Magnesia) 2,400 mg PRN QHS PRN PO CONSTIPATION; Start 06/16/16 at 03:15 Chlorpromazine HCl (Thorazine) 12.5 mg BID PO Last administered on 06/20/16 19: 35; Start 06/16/16 at 09:00 Divalproex Sodium (Depakote Er) 375 mg BID PO Last administered on 06/17/16 09 :55; Start 06/16/16 at 09:00; Stop 06/17/16 at 15:02; Status DC Donepezil HCl (Aricept) 10 mg DAILY PO Last administered on 06/20/16 08:13; Start 06/16/16 at 09:00 Lorazepam (Ativan) 1 mg PRN Q4HRS PRN PO ANXIETY / AGITATION Last administered on 06/16/16 22:40; Start 06/16/16 at 03:45 Memantine (Namenda) 10 mg BID PO Last administered on 06/20/16 19:33; Start at 09:00 Quetiapine Fumarate (SEROquel) 50 mg DAILY PO Last administered on 06/20/16 08: 13; Start 06/16/16 at 09:00 Quetiapine Fumarate (SEROquel) 100 mg HS PO Last administered on 06/20/16 19:32 ; Start 06/16/16 at 21:00 Trazodone HCl (Desyrel) 50 mg HS PO Last administered on 06/20/16 19:32; Start 06/16/16 at 21:00 Acetaminophen (Tylenol) 650 mg BID PO Last administered on 06/20/16 19:32; Start 06/16/16 at 09:00 Acetaminophen (Tylenol) 650 mg PRN Q4HRS PRN PO Pain/Fever Last administered on 06/19/16 15:06; Start 06/16/16 at 03:45 Aspirin (Aspirin Enteric Coated) 81 mg DAILY PO Last administered on 06/20/16 08:14; Start 06/16/16 at 09:00 Cyanocobalamin (Vitamin B-12) 1,000 mcg DAILY PO Last administered on 06/20/16 08:14; Start 06/16/16 at 09:00 Docusate Sodium (Colace) 100 mg DAILY PO Last administered on 06/20/16 08:14; Start 06/16/16 at 09:00 Finasteride (Proscar) 5 mg DAILY PO Last administered on 06/20/16 08:13; Start 06/16/16 at 09:00 Magnesium Hydroxide (Milk Of Magnesia) 400 mg PRN DAILY PRN PO CONSTIPATION; Start 06/16/16 at 03:45 Tamsulosin HCl (Flomax) 0.4 mg QHS PO Last administered on 06/20/16 19:33; Start 06/16/16 at 21:00 Diltiazem HCl (Cardizem 24hr Cd) 120 mg DAILY PO Last administered on 06/20/16 08:13; Start 06/16/16 at 09:00 Multivitamins/ Minerals (I-Matthew) 1 tab DAILY PO Supplement Last administered on 06/20/16 08:14; Start 06/16/16 at 09:00 Ketotifen Fumarate (Zaditor) 1 drop BID OU Last administered on 06/17/16 09:54 ; Start 06/16/16 at 09:00; Stop 06/17/16 at 15:00; Status DC Fish Oil (Fish Oil) 1,000 mg DAILY PO Supplement Last administered on 06/20/16 08:13; Start 06/16/16 at 09:00 Thiamine HCl (Vitamin B-1) 250 mg BID PO supplement Last administered on 19:32; Start 06/16/16 at 09:00 Trazodone HCl (Desyrel) 50 mg PRN QHS PRN PO insomnia Last administered on 06/19 00:02; Start 06/16/16 at 21:00 Ketotifen Fumarate (Zaditor) 1 drop BID OU Last administered on 06/20/16 19:35 ; Start 06/17/16 at 15:00 Divalproex Sodium (Depakote) 375 mg BID PO Last administered on 06/19/16 10:18 ; Start 06/17/16 at 21:00; Stop 06/19/16 at 15:14; Status DC Levothyroxine Sodium (Synthroid) 25 mcg DAILY07 PO Last administered on 06:07; Start 06/18/16 at 07:00 Vitamin D (Vitamin D3) 50,000 unit WEEKLY PO ; Start 06/24/16 at 09:00 Divalproex Sodium (Depakote) 500 mg BID PO Last administered on 06/20/16 19:31 ; Start 06/19/16 at 21:00 Active Scripts Active Reported Acetaminophen 325 Mg Tablet 650 Mg PO BID Trazodone Hcl 50 Mg Tablet 50 Mg PO HS Thiamine Hcl 250 Mg Tablet 250 Mg PO BID Quetiapine Fumarate 50 Mg Tablet 50 Mg PO DAILY Quetiapine Fumarate 100 Mg Tablet 100 Mg PO HS Milk Of Magnesia (Magnesium Hydroxide) 400 Mg/5 Ml Oral.susp 400 Mg PO PRN DAILY PRN [place]aday (Olopatadine Hcl) 2.5 Ml Drops 1 Drop OU PRN PRN Diltiazem Hcl Tablet (Diltiazem Hcl) 60 Mg Tablet 120 Mg PO DAILY Chlorpromazine Hcl 25 Mg Tablet 12.5 Mg PO BID Lorazepam 1 Mg Tablet 1 Mg PO PRN Q4HRS PRN Proscar (Finasteride) 5 Mg Tablet 5 Mg PO DAILY Flomax (Tamsulosin Hcl) 0.4 Mg Cap.er.24h 0.4 Mg PO QHS [place] 3 Fish Oil Softgel ([place]-3 Fatty Acids/Fish Oil) 1 Each Capsule. 1,200 Mg PO DAILY Donepezil Hcl 10 Mg Tablet 10 Mg PO DAILY Depakote Er (Divalproex Sodium) 250 Mg Tab.er.24h 375 Mg PO BID Namenda (Memantine Hcl) 10 Mg Tablet 10 Mg PO BID Tylenol (Acetaminophen) 325 Mg Tablet 650 Mg PO PRN Q4HRS PRN Vitamin B-12 (Cyanocobalamin (Vitamin B-12)) 1,000 Mcg Tablet 1,000 Mcg PO DAILY Aspirin Ec (Aspirin) 81 Mg Tablet. 81 Mg PO DAILY Multivitamins (Multivitamin) 1 Each Tablet 1 Tab PO DAILY Docusate Sodium 100 Mg Capsule 100 Mg PO DAILY Diagnosis: Problems: (1) Agitation NATASHA LAIRD MD Jun 20, 2016 21:58
[2016-06-21] MEDS: LEVOTHYROXINE 25 MCG TABLET. PO SCH (05:30)
[2016-06-21 06:09] VITALS: BP 126/73
[2016-06-21] MEDS: OMEGA-3 FATTY ACIDS/FISH OIL 1,000 MG CAPSULE. PO SCH (08:22)
[2016-06-21] MEDS: CYANOCOBALAMIN (VITAMIN B-12) 1,000 MCG TABLET. PO SCH (08:22)
[2016-06-21] MEDS: FINASTERIDE 5 MG TABLET PO SCH (08:22)
[2016-06-21] MEDS: DONEPEZIL HCL 10 MG TABLET PO SCH (08:22)
[2016-06-21] MEDS: DOCUSATE SODIUM 100 MG CAPSULE PO SCH (08:22)
[2016-06-21] MEDS: ASPIRIN ENTERIC COATED 81 MG TABLET.DR. PO SCH (08:22)
[2016-06-21] MEDS: ACETAMINOPHEN 325 MG TABLET PO SCH ×2 (08:22→20:47)
[2016-06-21] MEDS: DILTIAZEM HCL 120 MG CAP.ER.24H PO SCH (08:22)
[2016-06-21] MEDS: QUEtiapine 50 MG TABLET. PO SCH (08:22)
[2016-06-21] MEDS: THIAMINE 100 MG TABLET. PO SCH ×2 (08:23→20:47)
[2016-06-21] MEDS: MEMANTINE 10 MG TABLET. PO SCH ×2 (08:23→20:47)
[2016-06-21] MEDS: MULTIVITAMIN I-VITE TABLET. PO SCH (08:23)
[2016-06-21] MEDS: DIVALPROEX SODIUM 125 MG TABLET.DR. PO SCH ×2 (08:24→20:46)
[2016-06-21] MEDS: KETOTIFEN FUMARATE 0.025% OPHT SOLUTION BOTTLE. OU SCH ×2 (08:29→20:50)
[2016-06-21] MEDS: CHLORPROMAZINE HCL 25 MG PO SCH ×2 (08:30→20:50)
[2016-06-21 15:44] VITALS: BP 152/83
--- NOTE | 2016-06-21 17:51 | PN ---
DATE: 06/19/2016 PSYCHIATRIC PROGRESS NOTE This is a late entry for 06/19/2016, covers elements not covered in my initial note. SUBJECTIVE: The patient was sexually inappropriate the previous evening with nursing staff. CT head is negative. Asking the practical nursing faculty to get into bed with them to cuddle him, [place] REVIEW OF SYSTEMS: No CV, , pulmonary, eye, ENT system symptoms on review. Reliability poor. MENTAL STATUS EXAM: Oriented to himself, not very verbal as I met with him. Insight, judgment, recent attention, concentration, fund of knowledge poor, consistent with his diagnosis. LABORATORY DATA: Reviewed. IMPRESSION: Unchanged from initial note. PLAN: Continue psychotropics. Adjust further as clinically indicated. MAN Josh LAIRD MD DR: ONEYDA/ozzie JOB#: [id number] / [id number]
--- NOTE | 2016-06-21 19:04 | PN ---
DATE: 06/20/2016 PSYCHIATRIC PROGRESS NOTE This is a late entry for 06/20/2016 covers elements not covered in my initial note. SUBJECTIVE: The patient slept through breakfast was agitated compliant with his medications, restless, anxious at times. REVIEW OF SYSTEMS: No CV, , eye, ENT or pulmonary system symptoms on review. Reliability poor. MENTAL STATUS EXAM: Oriented to himself. Insight, judgment, recent and remote memory, attention, concentration, fund of knowledge poor, consistent with his diagnosis mentioned in my initial note. PLAN: Valproic acid level is 41, Depakote has been increased. Repeat labs level are awaited since prior level was low at 41. Adjust further as clinically indicated. MAN Josh LAIRD MD DR: ONEYDA/ozzie JOB#: [id number] / [id number]
--- NOTE | 2016-06-21 20:36 | PDOC ---
Exam Jake Demential Exam: Jake Note: Please also refer to the separate dictated note~for this date of service dictated separately.~Patient seen individually. Discussed the patient with Nursing staff reviewed the chart.~Reviewed interim history and current functioning. Reviewed vital signs,~Labs/ Radiology~and current medications noted below. Continue current treatment with the changes noted in the dictated addendum note Assessment: Vital Signs: Vital Signs Date Time Temp Pulse Resp B/P Pulse Ox O2 Delivery O2 Flow Rate FiO2 06/21/16 15:44 97.8 91 17 152/83 97 06/20/16 06:01 Room Air I&O Intake and Output 06/21/16 07:00 Intake Total 480 ml Balance 480 ml Intake Oral 480 ml Current Medications: Meds: Current Medications Acetaminophen (Tylenol) 650 mg PRN Q6HRS PRN PO PAIN / TEMP; Start 06/16/16 at 03:15; Status Cancel Multi-Ingredient Ointment (Analgesic [place]) 1 sajan PRN QID PRN TP MUSCLE PAIN; Start 06/16/16 at 03:15 Al Hydroxide/Mg Hydroxide (Mylanta Plus Xs) 15 ml PRN AFTMEALHC PRN PO DYSPEPSIA; Start 06/16/16 at 03:15 Magnesium Hydroxide (Milk Of Magnesia) 2,400 mg PRN QHS PRN PO CONSTIPATION; Start 06/16/16 at 03:15 Chlorpromazine HCl (Thorazine) 12.5 mg BID PO Last administered on 06/21/16 08: 30; Start 06/16/16 at 09:00 Divalproex Sodium (Depakote Er) 375 mg BID PO Last administered on 06/17/16 09 :55; Start 06/16/16 at 09:00; Stop 06/17/16 at 15:02; Status DC Donepezil HCl (Aricept) 10 mg DAILY PO Last administered on 06/21/16 08:22; Start 06/16/16 at 09:00 Lorazepam (Ativan) 1 mg PRN Q4HRS PRN PO ANXIETY / AGITATION Last administered on 06/16/16 22:40; Start 06/16/16 at 03:45 Memantine (Namenda) 10 mg BID PO Last administered on 06/21/16 08:23; Start at 09:00 Quetiapine Fumarate (SEROquel) 50 mg DAILY PO Last administered on 06/21/16 08: 22; Start 06/16/16 at 09:00 Quetiapine Fumarate (SEROquel) 100 mg HS PO Last administered on 06/20/16 19:32 ; Start 06/16/16 at 21:00 Trazodone HCl (Desyrel) 50 mg HS PO Last administered on 06/20/16 19:32; Start 06/16/16 at 21:00 Acetaminophen (Tylenol) 650 mg BID PO Last administered on 06/21/16 08:22; Start 06/16/16 at 09:00 Acetaminophen (Tylenol) 650 mg PRN Q4HRS PRN PO Pain/Fever Last administered on 06/19/16 15:06; Start 06/16/16 at 03:45 Aspirin (Aspirin Enteric Coated) 81 mg DAILY PO Last administered on 06/21/16 08:22; Start 06/16/16 at 09:00 Cyanocobalamin (Vitamin B-12) 1,000 mcg DAILY PO Last administered on 06/21/16 08:22; Start 06/16/16 at 09:00 Docusate Sodium (Colace) 100 mg DAILY PO Last administered on 06/21/16 08:22; Start 06/16/16 at 09:00 Finasteride (Proscar) 5 mg DAILY PO Last administered on 06/21/16 08:22; Start 06/16/16 at 09:00 Magnesium Hydroxide (Milk Of Magnesia) 400 mg PRN DAILY PRN PO CONSTIPATION; Start 06/16/16 at 03:45 Tamsulosin HCl (Flomax) 0.4 mg QHS PO Last administered on 06/20/16 19:33; Start 06/16/16 at 21:00 Diltiazem HCl (Cardizem 24hr Cd) 120 mg DAILY PO Last administered on 06/21/16 08:22; Start 06/16/16 at 09:00 Multivitamins/ Minerals (I-Matthew) 1 tab DAILY PO Supplement Last administered on 06/21/16 08:23; Start 06/16/16 at 09:00 Ketotifen Fumarate (Zaditor) 1 drop BID OU Last administered on 06/17/16 09:54 ; Start 06/16/16 at 09:00; Stop 06/17/16 at 15:00; Status DC Fish Oil (Fish Oil) 1,000 mg DAILY PO Supplement Last administered on 06/21/16 08:22; Start 06/16/16 at 09:00 Thiamine HCl (Vitamin B-1) 250 mg BID PO supplement Last administered on 08:23; Start 06/16/16 at 09:00 Trazodone HCl (Desyrel) 50 mg PRN QHS PRN PO insomnia Last administered on 06/19 00:02; Start 06/16/16 at 21:00 Ketotifen Fumarate (Zaditor) 1 drop BID OU Last administered on 06/21/16 08:29 ; Start 06/17/16 at 15:00 Divalproex Sodium (Depakote) 375 mg BID PO Last administered on 06/19/16 10:18 ; Start 06/17/16 at 21:00; Stop 06/19/16 at 15:14; Status DC Levothyroxine Sodium (Synthroid) 25 mcg DAILY07 PO Last administered on 05:30; Start 06/18/16 at 07:00 Vitamin D (Vitamin D3) 50,000 unit WEEKLY PO ; Start 06/24/16 at 09:00 Divalproex Sodium (Depakote) 500 mg BID PO Last administered on 06/21/16 08:24 ; Start 06/19/16 at 21:00 Active Scripts Active Reported Acetaminophen 325 Mg Tablet 650 Mg PO BID Trazodone Hcl 50 Mg Tablet 50 Mg PO HS Thiamine Hcl 250 Mg Tablet 250 Mg PO BID Quetiapine Fumarate 50 Mg Tablet 50 Mg PO DAILY Quetiapine Fumarate 100 Mg Tablet 100 Mg PO HS Milk Of Magnesia (Magnesium Hydroxide) 400 Mg/5 Ml Oral.susp 400 Mg PO PRN DAILY PRN [place] (Olopatadine Hcl) 2.5 Ml Drops 1 Drop OU PRN PRN Diltiazem Hcl Tablet (Diltiazem Hcl) 60 Mg Tablet 120 Mg PO DAILY Chlorpromazine Hcl 25 Mg Tablet 12.5 Mg PO BID Lorazepam 1 Mg Tablet 1 Mg PO PRN Q4HRS PRN Proscar (Finasteride) 5 Mg Tablet 5 Mg PO DAILY Flomax (Tamsulosin Hcl) 0.4 Mg Cap.er.24h 0.4 Mg PO QHS [place] 3 Fish Oil Softgel ([place]-3 Fatty Acids/Fish Oil) 1 Each Capsule. 1,200 Mg PO DAILY Donepezil Hcl 10 Mg Tablet 10 Mg PO DAILY Depakote Er (Divalproex Sodium) 250 Mg Tab.er.24h 375 Mg PO BID Namenda (Memantine Hcl) 10 Mg Tablet 10 Mg PO BID Tylenol (Acetaminophen) 325 Mg Tablet 650 Mg PO PRN Q4HRS PRN Vitamin B-12 (Cyanocobalamin (Vitamin B-12)) 1,000 Mcg Tablet 1,000 Mcg PO DAILY Aspirin Ec (Aspirin) 81 Mg Tablet. 81 Mg PO DAILY Multivitamins (Multivitamin) 1 Each Tablet 1 Tab PO DAILY Docusate Sodium 100 Mg Capsule 100 Mg PO DAILY Diagnosis: Problems: (1) Agitation NATASHA LAIRD MD Jun 21, 2016 20:36
[2016-06-21] MEDS: traZODone 50 MG TABLET. PO SCH (20:47)
[2016-06-21] MEDS: QUEtiapine 100 MG TABLET. PO SCH (20:47)
[2016-06-21] MEDS: TAMSULOSIN 0.4 MG CAP.ER.24H. PO SCH (20:47)
[2016-06-22] MEDS: LEVOTHYROXINE 25 MCG TABLET. PO SCH ×2 (05:50→08:29)
[2016-06-22 06:33] VITALS: BP 124/72
[2016-06-22 07:24] LABS: BASO # 0.1 x10^3/uL (0.0-0.2); BASO % 1 % (0-3); EOS # 0.4 x10^3/uL (0.0-0.7); EOS % 5 % (0-3); HEMATOCRIT 41.9 % (39.0-53.0); HEMOGLOBIN 13.3 g/dL (13.0-17.5); LYMPH # 1.7 x10^3/uL (1.0-4.8); LYMPH % 22 % (24-48); MEAN CORPUSCULAR HEMOGLOBIN 29 pg (25-35); MEAN CORPUSCULAR HGB CONC 32 g/dL (31-37); MEAN CORPUSCULAR VOLUME 92 fL (79-100); MONO # 0.9 x10^3/uL (0.0-1.1); MONO % 11 % (0-9); NEUT # 4.7 x10^3uL (1.8-7.7); NEUT % 61 % (31-73); PLATELET COUNT 107 x10^3/uL (140-400); RED BLOOD COUNT 4.54 x10^6/uL (4.30-5.70); RED CELL DISTRIBUTION WIDTH 14.8 % (11.5-14.5); WHITE BLOOD COUNT 7.7 x10^3/uL (4.0-11.0)
[2016-06-22 07:30] LABS: ALBUMIN 3.1 g/dL (3.4-5.0); ALBUMIN/GLOBULIN RATIO 0.8 (1.0-1.7); CALCIUM 8.4 mg/dL (8.5-10.1); CREATININE 1.1 mg/dL (0.7-1.3); GFR 65.4; POTASSIUM 3.7 mmol/L (3.5-5.1); TOTAL BILIRUBIN 0.3 mg/dL (0.2-1.0); TOTAL PROTEIN 6.8 g/dL (6.4-8.2)
[2016-06-22 07:58] LABS: VAL ACID 40 mcg/mL (50-100)
[2016-06-22] MEDS: DONEPEZIL HCL 10 MG TABLET PO SCH (08:28)
[2016-06-22] MEDS: FINASTERIDE 5 MG TABLET PO SCH (08:28)
[2016-06-22] MEDS: ACETAMINOPHEN 325 MG TABLET PO SCH ×2 (08:29→20:13)
[2016-06-22] MEDS: MULTIVITAMIN I-VITE TABLET. PO SCH (08:29)
[2016-06-22] MEDS: OMEGA-3 FATTY ACIDS/FISH OIL 1,000 MG CAPSULE. PO SCH (08:29)
[2016-06-22] MEDS: CYANOCOBALAMIN (VITAMIN B-12) 1,000 MCG TABLET. PO SCH (08:29)
[2016-06-22] MEDS: ASPIRIN ENTERIC COATED 81 MG TABLET.DR. PO SCH (08:29)
[2016-06-22] MEDS: DOCUSATE SODIUM 100 MG CAPSULE PO SCH (08:29)
[2016-06-22] MEDS: QUEtiapine 50 MG TABLET. PO SCH (08:29)
[2016-06-22] MEDS: MEMANTINE 10 MG TABLET. PO SCH ×2 (08:29→20:13)
[2016-06-22] MEDS: DILTIAZEM HCL 120 MG CAP.ER.24H PO SCH (08:29)
[2016-06-22] MEDS: DIVALPROEX SODIUM 125 MG TABLET.DR. PO SCH ×2 (08:30→20:12)
[2016-06-22] MEDS: THIAMINE 100 MG TABLET. PO SCH ×2 (08:30→20:12)
[2016-06-22] MEDS: KETOTIFEN FUMARATE 0.025% OPHT SOLUTION BOTTLE. OU SCH ×2 (08:31→20:19)
[2016-06-22] MEDS: CHLORPROMAZINE HCL 25 MG PO SCH (08:31)
--- NOTE | 2016-06-22 12:55 | HP ---
ADMIT DATE: 06/16/2016 PSYCHIATRIC ADMISSION HISTORY/EVALUATION This is a late entry for 06/16/2016. My records initially showed that this dictation was completed on 06/16/2016, but cannot be traced and I am redictating. IDENTIFYING DATA: The patient is a 75-year-old male referred to us from [facility] in [place], [place] by . His primary care physician and staff at the facility on account of worsening confusion after the patient eloped from the facility and was threatening towards staff members. Reportedly, he was posturing at staff, threatened to the door, lacking self-care, refused showers and was noted to have a "high risk of sexual behaviors." Symptoms have been worsening for about 1 year. He had prior treatment with a psychiatrist in [place]. CHIEF COMPLAINT: "I have been here many years." HISTORY OF PRESENT ILLNESS: The patient has a history of dementia, Alzheimer's vascular type. He has been residing at the above facility for some time, but over the past 2 weeks or so his behaviors, agitation have been worsening. He has appeared more psychotic, impulsive with some sleep and appetite disturbance. No clear suicidal or homicidal ideation. No clear history of bipolar disorder. PAST PSYCHIATRIC HISTORY: As above. PAST MEDICAL HISTORY: Hypertension, BPH, chronic constipation, back pain, past history of alcohol abuse. DRUG ALLERGIES: Negative. CURRENT PSYCHOTROPICS: Chlorpromazine 12.5 mg b.i.d., Depakote 375 mg b.i.d., Aricept 10 mg a day, Ativan 1 mg q.4h. p.r.n., Namenda 10 mg b.i.d., Seroquel 50 mg in the morning, 100 mg at night, trazodone 50 mg at bedtime. FAMILY HISTORY: Noncontributory. SOCIAL HISTORY: No history of physical, sexual or elder abuse. He is not known to be a perpetrator. He does have a history of extensive alcohol abuse. VITAL SIGNS: Temperature 97.9, BP 126/73, pulse 72, respirations 18, O2 sats 98% room air. REVIEW OF SYSTEMS: No CV, , eye, ENT or pulmonary system symptoms on review. MENTAL STATUS EXAMINATION: Oriented to himself. Insight, judgment, recent and remote memory, attention, concentration, fund of knowledge poor, consistent with his diagnosis. He is not very verbal as I met with him. Believed he had been living here for a long time even though he had just been admitted. LABORATORY DATA: Reviewed. IMPRESSION: Major neurocognitive disorder, Alzheimer, vascular, possibly secondary to alcohol with depression, delusion, behavioral disturbance; anxiety disorder, unspecified; impulse control disorder, unspecified. Rest diagnoses as above. PLAN: Admit to the geropsychiatry unit at [facility]. I will see the patient daily individually from a psychiatric standpoint and medical followup with Dr. Hidalgo/Dr. Vyas. Observe the patient's baseline. Continue current psychotropics and adjust these as clinically indicated. MAN Josh LAIRD MD DR: ONEYDA/ozzie JOB#: [id number] / [id number]
[2016-06-22 16:38] VITALS: BP 137/79
[2016-06-22] MEDS: traZODone 50 MG TABLET. PO SCH (20:11)
[2016-06-22] MEDS: QUEtiapine 100 MG TABLET. PO SCH (20:12)
[2016-06-22] MEDS: TAMSULOSIN 0.4 MG CAP.ER.24H. PO SCH (20:13)
[2016-06-22] MEDS: risperiDONE 0.25 MG TABLET. PO SCH (20:17)
--- NOTE | 2016-06-22 21:04 | PDOC ---
Exam Jake Demential Exam: Jake Note: Please also refer to the separate dictated note~for this date of service dictated separately.~Patient seen individually. Discussed the patient with Nursing staff reviewed the chart.~Reviewed interim history and current functioning. Reviewed vital signs,~Labs/ Radiology~and current medications noted below. Continue current treatment with the changes noted in the dictated addendum note Assessment: Vital Signs: Vital Signs Date Time Temp Pulse Resp B/P Pulse Ox O2 Delivery O2 Flow Rate FiO2 06/22/16 16:38 97.6 88 18 137/79 94 06/20/16 06:01 Room Air I&O Intake and Output 06/22/16 07:00 Intake Total 1320 ml Balance 1320 ml Intake Oral 1320 ml Labs: Laboratory Tests Test 06/22/16 06:57 White Blood Count 7.7x10^3/uL (4.0-11.0) Red Blood Count 4.54x10^6/uL (4.30-5.70) Hemoglobin 13.3g/dL (13.0-17.5) Hematocrit 41.9% (39.0-53.0) Mean Corpuscular Volume 92fL (79-100) Mean Corpuscular Hemoglobin 29pg (25-35) Mean Corpuscular Hemoglobin Concent 32g/dL (31-37) Red Cell Distribution Width 14.8% (11.5-14.5) H Platelet Count 107x10^3/uL (140-400) L Neutrophils (%) (Auto) 61% (31-73) Lymphocytes (%) (Auto) 22% (24-48) L Monocytes (%) (Auto) 11% (0-9) H Eosinophils (%) (Auto) 5% (0-3) H Basophils (%) (Auto) 1% (0-3) Neutrophils # (Auto) 4.7x10^3uL (1.8-7.7) Lymphocytes # (Auto) 1.7x10^3/uL (1.0-4.8) Monocytes # (Auto) 0.9x10^3/uL (0.0-1.1) Eosinophils # (Auto) 0.4x10^3/uL (0.0-0.7) Basophils # (Auto) 0.1x10^3/uL (0.0-0.2) Sodium Level 147mmol/L (136-145) H Potassium Level 3.7mmol/L (3.5-5.1) Chloride Level 110mmol/L (98-107) H Carbon Dioxide Level 30mmol/L (21-32) Anion Gap 7 (6-14) Blood Urea Nitrogen 16mg/dL (8-26) Creatinine 1.1mg/dL (0.7-1.3) Estimated GFR (Cockcroft-Gault) 65.4 BUN/Creatinine Ratio 15 (6-20) Glucose Level 87mg/dL (70-99) Calcium Level 8.4mg/dL (8.5-10.1) L Total Bilirubin 0.3mg/dL (0.2-1.0) Aspartate Amino Transferase (AST) 9U/L (15-37) L Alanine Aminotransferase (ALT) 15U/L (16-63) L Alkaline Phosphatase 69U/L (46-116) Total Protein 6.8g/dL (6.4-8.2) Albumin 3.1g/dL (3.4-5.0) L Albumin/Globulin Ratio 0.8 (1.0-1.7) L Valproic Acid Level 40mcg/mL (50-100) L Valproic Acid Last Dose Date 06/21/2016 Valproic Acid Last Dose Time 2100 Current Medications: Meds: Current Medications Acetaminophen (Tylenol) 650 mg PRN Q6HRS PRN PO PAIN / TEMP; Start 06/16/16 at 03:15; Status Cancel Multi-Ingredient Ointment (Analgesic [place]) 1 sajan PRN QID PRN TP MUSCLE PAIN; Start 06/16/16 at 03:15 Al Hydroxide/Mg Hydroxide (Mylanta Plus Xs) 15 ml PRN AFTMEALHC PRN PO DYSPEPSIA; Start 06/16/16 at 03:15 Magnesium Hydroxide (Milk Of Magnesia) 2,400 mg PRN QHS PRN PO CONSTIPATION; Start 06/16/16 at 03:15 Chlorpromazine HCl (Thorazine) 12.5 mg BID PO Last administered on 06/22/16t 08: 31; Start 06/16/16 at 09:00; Stop 06/22/16 at 18:21; Status DC Divalproex Sodium (Depakote Er) 375 mg BID PO Last administered on 06/17/16 09 :55; Start 06/16/16 at 09:00; Stop 06/17/16 at 15:02; Status DC Donepezil HCl (Aricept) 10 mg DAILY PO Last administered on 06/22/16 08:28; Start 06/16/16 at 09:00 Lorazepam (Ativan) 1 mg PRN Q4HRS PRN PO ANXIETY / AGITATION Last administered on 06/16/16 22:40; Start 06/16/16 at 03:45 Memantine (Namenda) 10 mg BID PO Last administered on 06/22/16 20:13; Start at 09:00 Quetiapine Fumarate (SEROquel) 50 mg DAILY PO Last administered on 06/22/16 08: 29; Start 06/16/16 at 09:00 Quetiapine Fumarate (SEROquel) 100 mg HS PO Last administered on 06/22/16 20:12 ; Start 06/16/16 at 21:00 Trazodone HCl (Desyrel) 50 mg HS PO Last administered on 06/22/16 20:11; Start 06/16/16 at 21:00 Acetaminophen (Tylenol) 650 mg BID PO Last administered on 06/22/16 20:13; Start 06/16/16 at 09:00 Acetaminophen (Tylenol) 650 mg PRN Q4HRS PRN PO Pain/Fever Last administered on 06/19/16 15:06; Start 06/16/16 at 03:45 Aspirin (Aspirin Enteric Coated) 81 mg DAILY PO Last administered on 06/22/16 08:29; Start 06/16/16 at 09:00 Cyanocobalamin (Vitamin B-12) 1,000 mcg DAILY PO Last administered on 06/22/16 08:29; Start 06/16/16 at 09:00 Docusate Sodium (Colace) 100 mg DAILY PO Last administered on 06/22/16 08:29; Start 06/16/16 at 09:00 Finasteride (Proscar) 5 mg DAILY PO Last administered on 06/22/16 08:28; Start 06/16/16 at 09:00 Magnesium Hydroxide (Milk Of Magnesia) 400 mg PRN DAILY PRN PO CONSTIPATION; Start 06/16/16 at 03:45 Tamsulosin HCl (Flomax) 0.4 mg QHS PO Last administered on 06/22/16 20:13; Start 06/16/16 at 21:00 Diltiazem HCl (Cardizem 24hr Cd) 120 mg DAILY PO Last administered on 06/22/16 08:29; Start 06/16/16 at 09:00 Multivitamins/ Minerals (I-Matthew) 1 tab DAILY PO Supplement Last administered on 06/22/16 08:29; Start 06/16/16 at 09:00 Ketotifen Fumarate (Zaditor) 1 drop BID OU Last administered on 06/17/16 09:54 ; Start 06/16/16 at 09:00; Stop 06/17/16 at 15:00; Status DC Fish Oil (Fish Oil) 1,000 mg DAILY PO Supplement Last administered on 06/22/16 08:29; Start 06/16/16 at 09:00 Thiamine HCl (Vitamin B-1) 250 mg BID PO supplement Last administered on 20:12; Start 06/16/16 at 09:00 Trazodone HCl (Desyrel) 50 mg PRN QHS PRN PO insomnia Last administered on 06/19 00:02; Start 06/16/16 at 21:00 Ketotifen Fumarate (Zaditor) 1 drop BID OU Last administered on 06/22/16 20:19 ; Start 06/17/16 at 15:00 Divalproex Sodium (Depakote) 375 mg BID PO Last administered on 06/19/16 10:18 ; Start 06/17/16 at 21:00; Stop 06/19/16 at 15:14; Status DC Levothyroxine Sodium (Synthroid) 25 mcg DAILY07 PO Last administered on 08:29; Start 06/18/16 at 07:00 Vitamin D (Vitamin D3) 50,000 unit WEEKLY PO ; Start 06/24/16 at 09:00 Divalproex Sodium (Depakote) 500 mg BID PO Last administered on 06/22/16 20:12 ; Start 06/19/16 at 21:00 Risperidone (Risperdal) 0.125 mg BID PO Last administered on 06/22/16 20:17; Start 06/22/16 at 21:00 Active Scripts Active Reported Acetaminophen 325 Mg Tablet 650 Mg PO BID Trazodone Hcl 50 Mg Tablet 50 Mg PO HS Thiamine Hcl 250 Mg Tablet 250 Mg PO BID Quetiapine Fumarate 50 Mg Tablet 50 Mg PO DAILY Quetiapine Fumarate 100 Mg Tablet 100 Mg PO HS Milk Of Magnesia (Magnesium Hydroxide) 400 Mg/5 Ml Oral.susp 400 Mg PO PRN DAILY PRN Pataday (Olopatadine Hcl) 2.5 Ml Drops 1 Drop OU PRN PRN Diltiazem Hcl Tablet (Diltiazem Hcl) 60 Mg Tablet 120 Mg PO DAILY Chlorpromazine Hcl 25 Mg Tablet 12.5 Mg PO BID Lorazepam 1 Mg Tablet 1 Mg PO PRN Q4HRS PRN Proscar (Finasteride) 5 Mg Tablet 5 Mg PO DAILY Flomax (Tamsulosin Hcl) 0.4 Mg Cap.er.24h 0.4 Mg PO QHS [place] 3 Fish Oil Softgel ([place]-3 Fatty Acids/Fish Oil) 1 Each Capsule.dr 1,200 Mg PO DAILY Donepezil Hcl 10 Mg Tablet 10 Mg PO DAILY Depakote Er (Divalproex Sodium) 250 Mg Tab.er.24h 375 Mg PO BID Namenda (Memantine Hcl) 10 Mg Tablet 10 Mg PO BID Tylenol (Acetaminophen) 325 Mg Tablet 650 Mg PO PRN Q4HRS PRN Vitamin B-12 (Cyanocobalamin (Vitamin B-12)) 1,000 Mcg Tablet 1,000 Mcg PO DAILY Aspirin Ec (Aspirin) 81 Mg Tablet.dr 81 Mg PO DAILY Multivitamins (Multivitamin) 1 Each Tablet 1 Tab PO DAILY Docusate Sodium 100 Mg Capsule 100 Mg PO DAILY Diagnosis: Problems: (1) Agitation NATASHA LAIRD MD Jun 22, 2016 21:04
--- NOTE | 2016-06-22 22:23 | PN ---
DATE: 06/21/2016 PSYCHIATRIC PROGRESS NOTE This is a late entry for 06/21/2016, cover elements not covered in my initial note. SUBJECTIVE: The patient has been a little more interactive on the unit; otherwise, still confused, but pleasant, not aggressive. REVIEW OF SYSTEMS: No CV, , eye, ENT or pulmonary system symptoms on review. Reliability poor. MENTAL STATUS EXAM: Oriented to himself. Insight, judgment, recent and remote memory, attention, concentration, fund of knowledge poor, consistent with his diagnosis mentioned in my initial note. PLAN: Continue psychotropics mentioned in my initial note. If aggression ____ still persists, we may need to increase Depakote further. MAN Josh LAIRD MD DR: ONEYDA/ozzie JOB#: [id number] / [id number]
[2016-06-23 05:45] VITALS: BP 109/61
[2016-06-23] MEDS: DIVALPROEX SODIUM 125 MG TABLET.DR. PO SCH ×2 (10:15→20:27)
[2016-06-23] MEDS: FINASTERIDE 5 MG TABLET PO SCH (10:15)
[2016-06-23] MEDS: DONEPEZIL HCL 10 MG TABLET PO SCH (10:16)
[2016-06-23] MEDS: DILTIAZEM HCL 120 MG CAP.ER.24H PO SCH ×2 (10:16→10:19)
[2016-06-23] MEDS: CYANOCOBALAMIN (VITAMIN B-12) 1,000 MCG TABLET. PO SCH (10:16)
[2016-06-23] MEDS: ACETAMINOPHEN 325 MG TABLET PO SCH ×2 (10:16→20:28)
[2016-06-23] MEDS: THIAMINE 100 MG TABLET. PO SCH ×2 (10:17→20:28)
[2016-06-23] MEDS: MULTIVITAMIN I-VITE TABLET. PO SCH (10:17)
[2016-06-23] MEDS: QUEtiapine 50 MG TABLET. PO SCH (10:18)
[2016-06-23] MEDS: MEMANTINE 10 MG TABLET. PO SCH ×2 (10:18→20:29)
[2016-06-23] MEDS: DOCUSATE SODIUM 100 MG CAPSULE PO SCH (10:18)
[2016-06-23] MEDS: risperiDONE 0.25 MG TABLET. PO SCH ×2 (10:18→20:29)
[2016-06-23] MEDS: ASPIRIN ENTERIC COATED 81 MG TABLET.DR. PO SCH (10:18)
[2016-06-23] MEDS: OMEGA-3 FATTY ACIDS/FISH OIL 1,000 MG CAPSULE. PO SCH (10:18)
[2016-06-23] MEDS: KETOTIFEN FUMARATE 0.025% OPHT SOLUTION BOTTLE. OU SCH ×3 (10:20→20:26)
[2016-06-23 16:15] VITALS: BP 149/95
[2016-06-23] MEDS: traZODone 50 MG TABLET. PO SCH (20:27)
[2016-06-23] MEDS: TAMSULOSIN 0.4 MG CAP.ER.24H. PO SCH (20:29)
--- NOTE | 2016-06-23 21:02 | PDOC ---
Exam Jake Demential Exam: Jake Note: Please also refer to the separate dictated note~for this date of service dictated separately.~Patient seen individually. Discussed the patient with Nursing staff reviewed the chart.~Reviewed interim history and current functioning. Reviewed vital signs,~Labs/ Radiology~and current medications noted below. Continue current treatment with the changes noted in the dictated addendum note Assessment: Vital Signs: Vital Signs Date Time Temp Pulse Resp B/P Pulse Ox O2 Delivery O2 Flow Rate FiO2 06/23/16 16:15 97.8 91 20 149/95 95 06/23/16 05:45 Room Air I&O Intake and Output 06/23/16 06:59 Intake Total 1400 ml Balance 1400 ml Intake Oral 1400 ml # Voids 3 # Bowel Movements 1 Current Medications: Meds: Current Medications Acetaminophen (Tylenol) 650 mg PRN Q6HRS PRN PO PAIN / TEMP; Start 06/16/16 at 03:15; Status Cancel Multi-Ingredient Ointment (Analgesic [place]) 1 sajan PRN QID PRN TP MUSCLE PAIN; Start 06/16/16 at 03:15 Al Hydroxide/Mg Hydroxide (Mylanta Plus Xs) 15 ml PRN AFTMEALHC PRN PO DYSPEPSIA; Start 06/16/16 at 03:15 Magnesium Hydroxide (Milk Of Magnesia) 2,400 mg PRN QHS PRN PO CONSTIPATION; Start 06/16/16 at 03:15 Chlorpromazine HCl (Thorazine) 12.5 mg BID PO Last administered on 06/22/16 08: 31; Start 06/16/16 at 09:00; Stop 06/22/16 at 18:21; Status DC Divalproex Sodium (Depakote Er) 375 mg BID PO Last administered on 06/17/16 09 :55; Start 06/16/16 at 09:00; Stop 06/17/16 at 15:02; Status DC Donepezil HCl (Aricept) 10 mg DAILY PO Last administered on 06/23/16 10:16; Start 06/16/16 at 09:00 Lorazepam (Ativan) 1 mg PRN Q4HRS PRN PO ANXIETY / AGITATION Last administered on 06/16/16 22:40; Start 06/16/16 at 03:45 Memantine (Namenda) 10 mg BID PO Last administered on 06/23/16 20:29; Start at 09:00 Quetiapine Fumarate (SEROquel) 50 mg DAILY PO Last administered on 06/23/16 10: 18; Start 06/16/16 at 09:00; Stop 06/23/16 at 18:50; Status DC Quetiapine Fumarate (SEROquel) 100 mg HS PO Last administered on 06/22/16 20:12 ; Start 06/16/16 at 21:00; Stop 06/23/16 at 18:50; Status DC Trazodone HCl (Desyrel) 50 mg HS PO Last administered on 06/23/16 20:27; Start 06/16/16 at 21:00 Acetaminophen (Tylenol) 650 mg BID PO Last administered on 06/23/16 20:28; Start 06/16/16 at 09:00 Acetaminophen (Tylenol) 650 mg PRN Q4HRS PRN PO Pain/Fever Last administered on 06/19/16 15:06; Start 06/16/16 at 03:45 Aspirin (Aspirin Enteric Coated) 81 mg DAILY PO Last administered on 06/23/16 10:18; Start 06/16/16 at 09:00 Cyanocobalamin (Vitamin B-12) 1,000 mcg DAILY PO Last administered on 06/23/16 10:16; Start 06/16/16 at 09:00 Docusate Sodium (Colace) 100 mg DAILY PO Last administered on 06/23/16 10:18; Start 06/16/16 at 09:00 Finasteride (Proscar) 5 mg DAILY PO Last administered on 06/23/16 10:15; Start 06/16/16 at 09:00 Magnesium Hydroxide (Milk Of Magnesia) 400 mg PRN DAILY PRN PO CONSTIPATION; Start 06/16/16 at 03:45 Tamsulosin HCl (Flomax) 0.4 mg QHS PO Last administered on 06/23/16 20:29; Start 06/16/16 at 21:00 Diltiazem HCl (Cardizem 24hr Cd) 120 mg DAILY PO Last administered on 06/22/16 08:29; Start 06/16/16 at 09:00 Multivitamins/ Minerals (I-Matthew) 1 tab DAILY PO Supplement Last administered on 06/23/16 10:17; Start 06/16/16 at 09:00 Ketotifen Fumarate (Zaditor) 1 drop BID OU Last administered on 06/17/16 09:54 ; Start 06/16/16 at 09:00; Stop 06/17/16 at 15:00; Status DC Fish Oil (Fish Oil) 1,000 mg DAILY PO Supplement Last administered on 06/23/16 10:18; Start 06/16/16 at 09:00 Thiamine HCl (Vitamin B-1) 250 mg BID PO supplement Last administered on 20:28; Start 06/16/16 at 09:00 Trazodone HCl (Desyrel) 50 mg PRN QHS PRN PO insomnia Last administered on 06/19 00:02; Start 06/16/16 at 21:00 Ketotifen Fumarate (Zaditor) 1 drop BID OU Last administered on 06/23/16 20:26 ; Start 06/17/16 at 15:00 Divalproex Sodium (Depakote) 375 mg BID PO Last administered on 06/19/16 10:18 ; Start 06/17/16 at 21:00; Stop 06/19/16 at 15:14; Status DC Levothyroxine Sodium (Synthroid) 25 mcg DAILY07 PO Last administered on 08:29; Start 06/18/16 at 07:00 Vitamin D (Vitamin D3) 50,000 unit WEEKLY PO ; Start 06/24/16 at 09:00 Divalproex Sodium (Depakote) 500 mg BID PO Last administered on 06/23/16 10:15 ; Start 06/19/16 at 21:00; Stop 06/23/16 at 18:51; Status DC Risperidone (Risperdal) 0.125 mg BID PO Last administered on 06/23/16 20:29; Start 06/22/16 at 21:00 Divalproex Sodium (Depakote) 625 mg BID PO Last administered on 06/23/16 20:27 ; Start 06/23/16 at 21:00 Active Scripts Active Reported Acetaminophen 325 Mg Tablet 650 Mg PO BID Trazodone Hcl 50 Mg Tablet 50 Mg PO HS Thiamine Hcl 250 Mg Tablet 250 Mg PO BID Quetiapine Fumarate 50 Mg Tablet 50 Mg PO DAILY Quetiapine Fumarate 100 Mg Tablet 100 Mg PO HS Milk Of Magnesia (Magnesium Hydroxide) 400 Mg/5 Ml Oral.susp 400 Mg PO PRN DAILY PRN Pataday (Olopatadine Hcl) 2.5 Ml Drops 1 Drop OU PRN PRN Diltiazem Hcl Tablet (Diltiazem Hcl) 60 Mg Tablet 120 Mg PO DAILY Chlorpromazine Hcl 25 Mg Tablet 12.5 Mg PO BID Lorazepam 1 Mg Tablet 1 Mg PO PRN Q4HRS PRN Proscar (Finasteride) 5 Mg Tablet 5 Mg PO DAILY Flomax (Tamsulosin Hcl) 0.4 Mg Cap.er.24h 0.4 Mg PO QHS [place] 3 Fish Oil Softgel ([place]-3 Fatty Acids/Fish Oil) 1 Each Capsule.dr 1,200 Mg PO DAILY Donepezil Hcl 10 Mg Tablet 10 Mg PO DAILY Depakote Er (Divalproex Sodium) 250 Mg Tab.er.24h 375 Mg PO BID Namenda (Memantine Hcl) 10 Mg Tablet 10 Mg PO BID Tylenol (Acetaminophen) 325 Mg Tablet 650 Mg PO PRN Q4HRS PRN Vitamin B-12 (Cyanocobalamin (Vitamin B-12)) 1,000 Mcg Tablet 1,000 Mcg PO DAILY Aspirin Ec (Aspirin) 81 Mg Tablet. 81 Mg PO DAILY Multivitamins (Multivitamin) 1 Each Tablet 1 Tab PO DAILY Docusate Sodium 100 Mg Capsule 100 Mg PO DAILY Diagnosis: Problems: (1) Agitation NATASHA LAIRD MD Jun 23, 2016 21:02
--- NOTE | 2016-06-24 03:19 | PN ---
DATE: 06/22/2016 SUBJECTIVE: This is late entry for 06/22/2016, covers elements not covered in my initial note. The patient remains confused and intermittently restless. Valproic acid level is 40. REVIEW OF SYSTEMS: No CV, , pulmonary, eye, or ENT system symptoms on review. MENTAL STATUS EXAM: Oriented to himself, not very verbal. Insight, judgment, recent and remote memory, attention, concentration, fund of knowledge poor, consistent with his diagnosis. He gets double portions, still complains of being hungry and not getting enough food. LABORATORY DATA: Reviewed. IMPRESSION: Unchanged from initial note. PLAN: Change chlorpromazine 12.5 mg b.i.d. to Risperdal 0.125 mg twice a day. Continue Depakote for now together with the Aricept, Ativan p.r.n., Namenda, Seroquel, and trazodone. Adjust as clinically indicated. NATASHA LAIRD MD DR: ONEYDA/ozzie JOB#: [id number] / [id number]
[2016-06-24 05:48] VITALS: BP 136/72
[2016-06-24] MEDS: LEVOTHYROXINE 25 MCG TABLET. PO SCH (05:50)
[2016-06-24] MEDS: FINASTERIDE 5 MG TABLET PO SCH (08:50)
[2016-06-24] MEDS: DIVALPROEX SODIUM 125 MG TABLET.DR. PO SCH ×2 (08:51→20:11)
[2016-06-24] MEDS: risperiDONE 0.25 MG TABLET. PO SCH ×3 (08:51→20:13)
[2016-06-24] MEDS: DILTIAZEM HCL 120 MG CAP.ER.24H PO SCH (08:52)
[2016-06-24] MEDS: MEMANTINE 10 MG TABLET. PO SCH ×2 (08:52→20:13)
[2016-06-24] MEDS: ACETAMINOPHEN 325 MG TABLET PO SCH ×2 (08:52→20:12)
[2016-06-24] MEDS: DONEPEZIL HCL 10 MG TABLET PO SCH (08:52)
[2016-06-24] MEDS: CYANOCOBALAMIN (VITAMIN B-12) 1,000 MCG TABLET. PO SCH (08:52)
[2016-06-24] MEDS: MULTIVITAMIN I-VITE TABLET. PO SCH (08:53)
[2016-06-24] MEDS: OMEGA-3 FATTY ACIDS/FISH OIL 1,000 MG CAPSULE. PO SCH (08:53)
[2016-06-24] MEDS: CHOLECALCIFEROL (VITAMIN D3) 50,000 UNIT CAPSULE PO SCH (08:53)
[2016-06-24] MEDS: THIAMINE 100 MG TABLET. PO SCH ×2 (08:53→20:12)
[2016-06-24] MEDS: ASPIRIN ENTERIC COATED 81 MG TABLET.DR. PO SCH (08:53)
[2016-06-24] MEDS: DOCUSATE SODIUM 100 MG CAPSULE PO SCH (08:53)
[2016-06-24] MEDS: KETOTIFEN FUMARATE 0.025% OPHT SOLUTION BOTTLE. OU SCH ×2 (08:54→20:15)
[2016-06-24 16:20] VITALS: BP 148/74
[2016-06-24] MEDS: TAMSULOSIN 0.4 MG CAP.ER.24H. PO SCH (20:13)
[2016-06-24] MEDS: traZODone 50 MG TABLET. PO SCH ×2 (20:15)
--- NOTE | 2016-06-24 21:07 | PDOC ---
Exam Jake Demential Exam: Jake Note: Please also refer to the separate dictated note~for this date of service dictated separately.~Patient seen individually. Discussed the patient with Nursing staff reviewed the chart.~Reviewed interim history and current functioning. Reviewed vital signs,~Labs/ Radiology~and current medications noted below. Continue current treatment with the changes noted in the dictated addendum note Assessment: Vital Signs: Vital Signs Date Time Temp Pulse Resp B/P Pulse Ox O2 Delivery O2 Flow Rate FiO2 06/24/16 16:20 98.6 105 20 148/74 96 06/23/16 05:45 Room Air I&O Intake and Output 06/24/16 07:00 Intake Total 600 ml Balance 600 ml Intake Oral 600 ml # Voids 3 Current Medications: Meds: Current Medications Acetaminophen (Tylenol) 650 mg PRN Q6HRS PRN PO PAIN / TEMP; Start 06/16/16 at 03:15; Status Cancel Multi-Ingredient Ointment (Analgesic [place]) 1 sajan PRN QID PRN TP MUSCLE PAIN; Start 06/16/16 at 03:15 Al Hydroxide/Mg Hydroxide (Mylanta Plus Xs) 15 ml PRN AFTMEALHC PRN PO DYSPEPSIA; Start 06/16/16 at 03:15 Magnesium Hydroxide (Milk Of Magnesia) 2,400 mg PRN QHS PRN PO CONSTIPATION; Start 06/16/16 at 03:15 Chlorpromazine HCl (Thorazine) 12.5 mg BID PO Last administered on 06/22/16 08: 31; Start 06/16/16 at 09:00; Stop 06/22/16 at 18:21; Status DC Divalproex Sodium (Depakote Er) 375 mg BID PO Last administered on 06/17/16 09 :55; Start 06/16/16 at 09:00; Stop 06/17/16 at 15:02; Status DC Donepezil HCl (Aricept) 10 mg DAILY PO Last administered on 06/24/16 08:52; Start 06/16/16 at 09:00 Lorazepam (Ativan) 1 mg PRN Q4HRS PRN PO ANXIETY / AGITATION Last administered on 06/16/16 22:40; Start 06/16/16 at 03:45 Memantine (Namenda) 10 mg BID PO Last administered on 06/24/16 20:13; Start at 09:00 Quetiapine Fumarate (SEROquel) 50 mg DAILY PO Last administered on 06/23/16 10: 18; Start 06/16/16 at 09:00; Stop 06/23/16 at 18:50; Status DC Quetiapine Fumarate (SEROquel) 100 mg HS PO Last administered on 06/22/16 20:12 ; Start 06/16/16 at 21:00; Stop 06/23/16 at 18:50; Status DC Trazodone HCl (Desyrel) 50 mg HS PO Last administered on 06/24/16 20:15; Start 06/16/16 at 21:00 Acetaminophen (Tylenol) 650 mg BID PO Last administered on 06/24/16 20:12; Start 06/16/16 at 09:00 Acetaminophen (Tylenol) 650 mg PRN Q4HRS PRN PO Pain/Fever Last administered on 06/19/16 15:06; Start 06/16/16 at 03:45 Aspirin (Aspirin Enteric Coated) 81 mg DAILY PO Last administered on 06/24/16 08:53; Start 06/16/16 at 09:00 Cyanocobalamin (Vitamin B-12) 1,000 mcg DAILY PO Last administered on 06/24/16 08:52; Start 06/16/16 at 09:00 Docusate Sodium (Colace) 100 mg DAILY PO Last administered on 06/24/16 08:53; Start 06/16/16 at 09:00 Finasteride (Proscar) 5 mg DAILY PO Last administered on 06/24/16 08:50; Start 06/16/16 at 09:00 Magnesium Hydroxide (Milk Of Magnesia) 400 mg PRN DAILY PRN PO CONSTIPATION; Start 06/16/16 at 03:45 Tamsulosin HCl (Flomax) 0.4 mg QHS PO Last administered on 06/24/16 20:13; Start 06/16/16 at 21:00 Diltiazem HCl (Cardizem 24hr Cd) 120 mg DAILY PO Last administered on 06/24/16 08:52; Start 06/16/16 at 09:00 Multivitamins/ Minerals (I-Matthew) 1 tab DAILY PO Supplement Last administered on 06/24/16 08:53; Start 06/16/16 at 09:00 Ketotifen Fumarate (Zaditor) 1 drop BID OU Last administered on 06/17/16 09:54 ; Start 06/16/16 at 09:00; Stop 06/17/16 at 15:00; Status DC Fish Oil (Fish Oil) 1,000 mg DAILY PO Supplement Last administered on 06/24/16 08:53; Start 06/16/16 at 09:00 Thiamine HCl (Vitamin B-1) 250 mg BID PO supplement Last administered on 20:12; Start 06/16/16 at 09:00 Trazodone HCl (Desyrel) 50 mg PRN QHS PRN PO insomnia Last administered on 06/19 00:02; Start 06/16/16 at 21:00 Ketotifen Fumarate (Zaditor) 1 drop BID OU Last administered on 06/23/16 20:26 ; Start 06/17/16 at 15:00 Divalproex Sodium (Depakote) 375 mg BID PO Last administered on 06/19/16 10:18 ; Start 06/17/16 at 21:00; Stop 06/19/16 at 15:14; Status DC Levothyroxine Sodium (Synthroid) 25 mcg DAILY07 PO Last administered on 05:50; Start 06/18/16 at 07:00 Vitamin D (Vitamin D3) 50,000 unit WEEKLY PO Last administered on 06/24/16 08: 53; Start 06/24/16 at 09:00 Divalproex Sodium (Depakote) 500 mg BID PO Last administered on 06/23/16 10:15 ; Start 06/19/16 at 21:00; Stop 06/23/16 at 18:51; Status DC Risperidone (Risperdal) 0.125 mg BID PO Last administered on 06/24/16 08:51; Start 06/22/16 at 21:00; Stop 06/24/16 at 18:20; Status DC Divalproex Sodium (Depakote) 625 mg BID PO Last administered on 06/24/16 20:11 ; Start 06/23/16 at 21:00 Risperidone (Risperdal) 0.125 mg TID PO Last administered on 06/24/16 20:13; Start 06/24/16 at 18:30 Trazodone HCl (Desyrel) 25 mg TID PO Last administered on 06/24/16 20:15; Start 06/24/16 at 21:00 Active Scripts Active Reported Acetaminophen 325 Mg Tablet 650 Mg PO BID Trazodone Hcl 50 Mg Tablet 50 Mg PO HS Thiamine Hcl 250 Mg Tablet 250 Mg PO BID Quetiapine Fumarate 50 Mg Tablet 50 Mg PO DAILY Quetiapine Fumarate 100 Mg Tablet 100 Mg PO HS Milk Of Magnesia (Magnesium Hydroxide) 400 Mg/5 Ml Oral.susp 400 Mg PO PRN DAILY PRN [place] (Olopatadine Hcl) 2.5 Ml Drops 1 Drop OU PRN PRN Diltiazem Hcl Tablet (Diltiazem Hcl) 60 Mg Tablet 120 Mg PO DAILY Chlorpromazine Hcl 25 Mg Tablet 12.5 Mg PO BID Lorazepam 1 Mg Tablet 1 Mg PO PRN Q4HRS PRN Proscar (Finasteride) 5 Mg Tablet 5 Mg PO DAILY Flomax (Tamsulosin Hcl) 0.4 Mg Cap.er.24h 0.4 Mg PO QHS [place] 3 Fish Oil Softgel ([place]-3 Fatty Acids/Fish Oil) 1 Each Capsule. 1,200 Mg PO DAILY Donepezil Hcl 10 Mg Tablet 10 Mg PO DAILY Depakote Er (Divalproex Sodium) 250 Mg Tab.er.24h 375 Mg PO BID Namenda (Memantine Hcl) 10 Mg Tablet 10 Mg PO BID Tylenol (Acetaminophen) 325 Mg Tablet 650 Mg PO PRN Q4HRS PRN Vitamin B-12 (Cyanocobalamin (Vitamin B-12)) 1,000 Mcg Tablet 1,000 Mcg PO DAILY Aspirin Ec (Aspirin) 81 Mg Tablet.dr 81 Mg PO DAILY Multivitamins (Multivitamin) 1 Each Tablet 1 Tab PO DAILY Docusate Sodium 100 Mg Capsule 100 Mg PO DAILY Diagnosis: Problems: (1) Agitation NATASHA LAIRD MD Jun 24, 2016 21:07
--- NOTE | 2016-06-24 22:56 | PN ---
DATE: 06/23/2016 This is a late entry for 06/23/2016 and covers elements not covered in my initial note. SUBJECTIVE: Overall, the patient was in bed until about lunchtime, tends to sleep naked in his bed, demanding extra food even though he gets double portions and he is quite obese . REVIEW OF SYSTEMS: No eye, ENT, CV, , pulmonary system symptoms on review. Reliability poor. MENTAL STATUS EXAM: Oriented to himself. Insight, judgment, recent and remote memory, attention, concentration, fund of knowledge poor, consistent with his diagnosis mentioned in my initial note. PLAN: Continue Risperdal 1.25 mg twice a day, stop the Seroquel scheduled and p.r.n. Continue Aricept 10 mg a day, Ativan p.r.n., Namenda 10 b.i.d., trazodone 50 at bedtime, july repeat x 1. Valproic acid level is 40. We will increase the Depakote from 500 b.i.d. to 625 twice a day. Check labs level in 3 days. Adjust further as clinically indicated. MAN Josh LAIRD MD DR: ONEYDA/ozzie JOB#: [id number] / [id number]
[2016-06-25 05:08] VITALS: BP 142/64
[2016-06-25] MEDS: LEVOTHYROXINE 25 MCG TABLET. PO SCH (05:17)
[2016-06-25] MEDS: DONEPEZIL HCL 10 MG TABLET PO SCH (08:57)
[2016-06-25] MEDS: ASPIRIN ENTERIC COATED 81 MG TABLET.DR. PO SCH (08:57)
[2016-06-25] MEDS: KETOTIFEN FUMARATE 0.025% OPHT SOLUTION BOTTLE. OU SCH ×3 (08:57→19:12)
[2016-06-25] MEDS: DILTIAZEM HCL 120 MG CAP.ER.24H PO SCH (08:58)
[2016-06-25] MEDS: DOCUSATE SODIUM 100 MG CAPSULE PO SCH (08:58)
[2016-06-25] MEDS: traZODone 50 MG TABLET. PO SCH ×4 (09:01→19:14)
[2016-06-25] MEDS: MULTIVITAMIN I-VITE TABLET. PO SCH (09:02)
[2016-06-25] MEDS: MEMANTINE 10 MG TABLET. PO SCH ×2 (09:02→19:14)
[2016-06-25] MEDS: OMEGA-3 FATTY ACIDS/FISH OIL 1,000 MG CAPSULE. PO SCH (09:02)
[2016-06-25] MEDS: FINASTERIDE 5 MG TABLET PO SCH (09:02)
[2016-06-25] MEDS: risperiDONE 0.25 MG TABLET. PO SCH ×3 (09:03→19:14)
[2016-06-25] MEDS: ACETAMINOPHEN 325 MG TABLET PO SCH ×2 (09:03→19:15)
[2016-06-25] MEDS: CYANOCOBALAMIN (VITAMIN B-12) 1,000 MCG TABLET. PO SCH (09:04)
[2016-06-25] MEDS: THIAMINE 100 MG TABLET. PO SCH ×2 (09:04→19:15)
[2016-06-25] MEDS: DIVALPROEX SODIUM 125 MG TABLET.DR. PO SCH ×2 (09:07→19:13)
[2016-06-25 15:44] VITALS: BP 118/63
[2016-06-25] MEDS: TAMSULOSIN 0.4 MG CAP.ER.24H. PO SCH (19:14)
--- NOTE | 2016-06-25 21:20 | PDOC ---
Exam Jake Demential Exam: Jake Note: Please also refer to the separate dictated note~for this date of service dictated separately.~Patient seen individually. Discussed the patient with Nursing staff reviewed the chart.~Reviewed interim history and current functioning. Reviewed vital signs,~Labs/ Radiology~and current medications noted below. Continue current treatment with the changes noted in the dictated addendum note Assessment: Vital Signs: Vital Signs Date Time Temp Pulse Resp B/P Pulse Ox O2 Delivery O2 Flow Rate FiO2 06/25/16 15:44 98.1 77 18 118/63 94 06/23/16 05:45 Room Air I&O Intake and Output 06/25/16 07:00 Intake Total 1080 ml Balance 1080 ml Intake Oral 1080 ml # Voids 1 Current Medications: Meds: Current Medications Acetaminophen (Tylenol) 650 mg PRN Q6HRS PRN PO PAIN / TEMP; Start 06/16/16 at 03:15; Status Cancel Multi-Ingredient Ointment (Analgesic [place]) 1 sajan PRN QID PRN TP MUSCLE PAIN; Start 06/16/16 at 03:15 Al Hydroxide/Mg Hydroxide (Mylanta Plus Xs) 15 ml PRN AFTMEALHC PRN PO DYSPEPSIA; Start 06/16/16 at 03:15 Magnesium Hydroxide (Milk Of Magnesia) 2,400 mg PRN QHS PRN PO CONSTIPATION; Start 06/16/16 at 03:15 Chlorpromazine HCl (Thorazine) 12.5 mg BID PO Last administered on 06/22/16 08: 31; Start 06/16/16 at 09:00; Stop 06/22/16 at 18:21; Status DC Divalproex Sodium (Depakote Er) 375 mg BID PO Last administered on 06/17/16 09 :55; Start 06/16/16 at 09:00; Stop 06/17/16 at 15:02; Status DC Donepezil HCl (Aricept) 10 mg DAILY PO Last administered on 06/25/16 08:57; Start 06/16/16 at 09:00 Lorazepam (Ativan) 1 mg PRN Q4HRS PRN PO ANXIETY / AGITATION Last administered on 06/16/16 22:40; Start 06/16/16 at 03:45 Memantine (Namenda) 10 mg BID PO Last administered on 06/25/16 19:14; Start at 09:00 Quetiapine Fumarate (SEROquel) 50 mg DAILY PO Last administered on 06/23/16 10: 18; Start 06/16/16 at 09:00; Stop 06/23/16 at 18:50; Status DC Quetiapine Fumarate (SEROquel) 100 mg HS PO Last administered on 06/22/16 20:12 ; Start 06/16/16 at 21:00; Stop 06/23/16 at 18:50; Status DC Trazodone HCl (Desyrel) 50 mg HS PO Last administered on 06/25/16 19:13; Start 06/16/16 at 21:00 Acetaminophen (Tylenol) 650 mg BID PO Last administered on 06/25/16 19:15; Start 06/16/16 at 09:00 Acetaminophen (Tylenol) 650 mg PRN Q4HRS PRN PO Pain/Fever Last administered on 06/19/16 15:06; Start 06/16/16 at 03:45 Aspirin (Aspirin Enteric Coated) 81 mg DAILY PO Last administered on 06/25/16 08:57; Start 06/16/16 at 09:00 Cyanocobalamin (Vitamin B-12) 1,000 mcg DAILY PO Last administered on 06/25/16 09:04; Start 06/16/16 at 09:00 Docusate Sodium (Colace) 100 mg DAILY PO Last administered on 06/25/16 08:58; Start 06/16/16 at 09:00 Finasteride (Proscar) 5 mg DAILY PO Last administered on 06/25/16 09:02; Start 06/16/16 at 09:00 Magnesium Hydroxide (Milk Of Magnesia) 400 mg PRN DAILY PRN PO CONSTIPATION; Start 06/16/16 at 03:45 Tamsulosin HCl (Flomax) 0.4 mg QHS PO Last administered on 06/25/16 19:14; Start 06/16/16 at 21:00 Diltiazem HCl (Cardizem 24hr Cd) 120 mg DAILY PO Last administered on 06/25/16 08:58; Start 06/16/16 at 09:00 Multivitamins/ Minerals (I-Matthew) 1 tab DAILY PO Supplement Last administered on 06/25/16 09:02; Start 06/16/16 at 09:00 Ketotifen Fumarate (Zaditor) 1 drop BID OU Last administered on 06/17/16 09:54 ; Start 06/16/16 at 09:00; Stop 06/17/16 at 15:00; Status DC Fish Oil (Fish Oil) 1,000 mg DAILY PO Supplement Last administered on 06/25/16 09:02; Start 06/16/16 at 09:00 Thiamine HCl (Vitamin B-1) 250 mg BID PO supplement Last administered on 19:15; Start 06/16/16 at 09:00 Trazodone HCl (Desyrel) 50 mg PRN QHS PRN PO insomnia Last administered on 06/19 00:02; Start 06/16/16 at 21:00 Ketotifen Fumarate (Zaditor) 1 drop BID OU Last administered on 06/25/16 19:12 ; Start 06/17/16 at 15:00 Divalproex Sodium (Depakote) 375 mg BID PO Last administered on 06/19/16 10:18 ; Start 06/17/16 at 21:00; Stop 06/19/16 at 15:14; Status DC Levothyroxine Sodium (Synthroid) 25 mcg DAILY07 PO Last administered on 05:17; Start 06/18/16 at 07:00 Vitamin D (Vitamin D3) 50,000 unit WEEKLY PO Last administered on 06/24/16 08: 53; Start 06/24/16 at 09:00 Divalproex Sodium (Depakote) 500 mg BID PO Last administered on 06/23/16 10:15 ; Start 06/19/16 at 21:00; Stop 06/23/16 at 18:51; Status DC Risperidone (Risperdal) 0.125 mg BID PO Last administered on 06/24/16 08:51; Start 06/22/16 at 21:00; Stop 06/24/16 at 18:20; Status DC Divalproex Sodium (Depakote) 625 mg BID PO Last administered on 06/25/16 19:13 ; Start 06/23/16 at 21:00 Risperidone (Risperdal) 0.125 mg TID PO Last administered on 06/25/16 19:14; Start 06/24/16 at 18:30 Trazodone HCl (Desyrel) 25 mg TID PO Last administered on 06/25/16 19:14; Start 06/24/16 at 21:00 Active Scripts Active Reported Acetaminophen 325 Mg Tablet 650 Mg PO BID Trazodone Hcl 50 Mg Tablet 50 Mg PO HS Thiamine Hcl 250 Mg Tablet 250 Mg PO BID Quetiapine Fumarate 50 Mg Tablet 50 Mg PO DAILY Quetiapine Fumarate 100 Mg Tablet 100 Mg PO HS Milk Of Magnesia (Magnesium Hydroxide) 400 Mg/5 Ml Oral.susp 400 Mg PO PRN DAILY PRN Pataday (Olopatadine Hcl) 2.5 Ml Drops 1 Drop OU PRN PRN Diltiazem Hcl Tablet (Diltiazem Hcl) 60 Mg Tablet 120 Mg PO DAILY Chlorpromazine Hcl 25 Mg Tablet 12.5 Mg PO BID Lorazepam 1 Mg Tablet 1 Mg PO PRN Q4HRS PRN Proscar (Finasteride) 5 Mg Tablet 5 Mg PO DAILY Flomax (Tamsulosin Hcl) 0.4 Mg Cap.er.24h 0.4 Mg PO QHS [place] 3 Fish Oil Softgel ([place]-3 Fatty Acids/Fish Oil) 1 Each Capsule.dr 1,200 Mg PO DAILY Donepezil Hcl 10 Mg Tablet 10 Mg PO DAILY Depakote Er (Divalproex Sodium) 250 Mg Tab.er.24h 375 Mg PO BID Namenda (Memantine Hcl) 10 Mg Tablet 10 Mg PO BID Tylenol (Acetaminophen) 325 Mg Tablet 650 Mg PO PRN Q4HRS PRN Vitamin B-12 (Cyanocobalamin (Vitamin B-12)) 1,000 Mcg Tablet 1,000 Mcg PO DAILY Aspirin Ec (Aspirin) 81 Mg Tablet.dr 81 Mg PO DAILY Multivitamins (Multivitamin) 1 Each Tablet 1 Tab PO DAILY Docusate Sodium 100 Mg Capsule 100 Mg PO DAILY Diagnosis: Problems: (1) Anxiety disorder (2) Agitation (3) Dementia in Alzheimer's disease with delusions (4) Dementia in Alzheimer's disease with depression (5) Dementia, vascular, with delusions (6) Dementia, vascular, with depression (7) Impulse control disorder NATASHA LAIRD MD Jun 25, 2016 21:20
[2016-06-26] MEDS: LEVOTHYROXINE 25 MCG TABLET. PO SCH (05:31)
[2016-06-26 06:50] LABS: BASO # 0.1 x10^3/uL (0.0-0.2); BASO % 1 % (0-3); EOS # 0.4 x10^3/uL (0.0-0.7); EOS % 4 % (0-3); HEMATOCRIT 40.9 % (39.0-53.0); LYMPH # 1.6 x10^3/uL (1.0-4.8); LYMPH % 19 % (24-48); MEAN CORPUSCULAR HEMOGLOBIN 29 pg (25-35); MEAN CORPUSCULAR HGB CONC 32 g/dL (31-37); MEAN CORPUSCULAR VOLUME 92 fL (79-100); MONO # 0.9 x10^3/uL (0.0-1.1); MONO % 11 % (0-9); NEUT # 5.4 x10^3uL (1.8-7.7); NEUT % 65 % (31-73); PLATELET COUNT 121 x10^3/uL (140-400); RED BLOOD COUNT 4.44 x10^6/uL (4.30-5.70); RED CELL DISTRIBUTION WIDTH 14.8 % (11.5-14.5); WHITE BLOOD COUNT 8.3 x10^3/uL (4.0-11.0)
[2016-06-26 06:58] LABS: ALBUMIN/GLOBULIN RATIO 0.9 (1.0-1.7); ALK PHOS 63 U/L (46-116); ALT (SGPT) 14 U/L (16-63); ANION GAP 4 (6-14); AST (SGOT) 7 U/L (15-37); BLOOD UREA NITROGEN 19 mg/dL (8-26); BUN/CREATININE RATIO 17 (6-20); CALCIUM 8.3 mg/dL (8.5-10.1); CARBON DIOXIDE 31 mmol/L (21-32); CHLORIDE 112 mmol/L (98-107); CREATININE 1.1 mg/dL (0.7-1.3); GFR 65.4; GLUCOSE 95 mg/dL (70-99); POTASSIUM 4.2 mmol/L (3.5-5.1); SODIUM 147 mmol/L (136-145); TOTAL BILIRUBIN 0.2 mg/dL (0.2-1.0); TOTAL PROTEIN 6.5 g/dL (6.4-8.2)
[2016-06-26 07:01] LABS: VAL ACID 40 mcg/mL (50-100)
[2016-06-26] MEDS: MULTIVITAMIN I-VITE TABLET. PO SCH (08:10)
[2016-06-26] MEDS: OMEGA-3 FATTY ACIDS/FISH OIL 1,000 MG CAPSULE. PO SCH (08:10)
[2016-06-26] MEDS: KETOTIFEN FUMARATE 0.025% OPHT SOLUTION BOTTLE. OU SCH ×2 (08:10→19:53)
[2016-06-26] MEDS: DOCUSATE SODIUM 100 MG CAPSULE PO SCH (08:10)
[2016-06-26] MEDS: MEMANTINE 10 MG TABLET. PO SCH ×2 (08:10→19:53)
[2016-06-26] MEDS: THIAMINE 100 MG TABLET. PO SCH ×2 (08:10→19:53)
[2016-06-26] MEDS: CYANOCOBALAMIN (VITAMIN B-12) 1,000 MCG TABLET. PO SCH (08:11)
[2016-06-26] MEDS: DIVALPROEX SODIUM 125 MG TABLET.DR. PO SCH ×2 (08:11→19:55)
[2016-06-26] MEDS: DILTIAZEM HCL 120 MG CAP.ER.24H PO SCH (08:11)
[2016-06-26] MEDS: risperiDONE 0.25 MG TABLET. PO SCH ×3 (08:11→19:55)
[2016-06-26] MEDS: FINASTERIDE 5 MG TABLET PO SCH (08:11)
[2016-06-26] MEDS: DONEPEZIL HCL 10 MG TABLET PO SCH (08:11)
[2016-06-26] MEDS: ACETAMINOPHEN 325 MG TABLET PO SCH ×2 (08:12→19:53)
[2016-06-26] MEDS: ASPIRIN ENTERIC COATED 81 MG TABLET.DR. PO SCH (08:12)
[2016-06-26] MEDS: traZODone 50 MG TABLET. PO SCH ×4 (08:13→19:57)
[2016-06-26 16:16] VITALS: BP 124/67
[2016-06-26] MEDS: TAMSULOSIN 0.4 MG CAP.ER.24H. PO SCH (19:56)
--- NOTE | 2016-06-26 21:12 | PDOC ---
Exam Jake Demential Exam: Jake Note: Please also refer to the separate dictated note~for this date of service dictated separately.~Patient seen individually. Discussed the patient with Nursing staff reviewed the chart.~Reviewed interim history and current functioning. Reviewed vital signs,~Labs/ Radiology~and current medications noted below. Continue current treatment with the changes noted in the dictated addendum note Assessment: Vital Signs: Vital Signs Date Time Temp Pulse Resp B/P Pulse Ox O2 Delivery O2 Flow Rate FiO2 06/26/16 16:16 98.0 85 20 124/67 95 06/23/16 05:45 Room Air I&O Intake and Output 06/26/16 07:00 Intake Total 840 ml Balance 840 ml Intake Oral 840 ml # Voids 2 Labs: Laboratory Tests Test 06/26/16 06:27 White Blood Count 8.3x10^3/uL (4.0-11.0) Red Blood Count 4.44x10^6/uL (4.30-5.70) Hemoglobin 13.0g/dL (13.0-17.5) Hematocrit 40.9% (39.0-53.0) Mean Corpuscular Volume 92fL (79-100) Mean Corpuscular Hemoglobin 29pg (25-35) Mean Corpuscular Hemoglobin Concent 32g/dL (31-37) Red Cell Distribution Width 14.8% (11.5-14.5) H Platelet Count 121x10^3/uL (140-400) L Neutrophils (%) (Auto) 65% (31-73) Lymphocytes (%) (Auto) 19% (24-48) L Monocytes (%) (Auto) 11% (0-9) H Eosinophils (%) (Auto) 4% (0-3) H Basophils (%) (Auto) 1% (0-3) Neutrophils # (Auto) 5.4x10^3uL (1.8-7.7) Lymphocytes # (Auto) 1.6x10^3/uL (1.0-4.8) Monocytes # (Auto) 0.9x10^3/uL (0.0-1.1) Eosinophils # (Auto) 0.4x10^3/uL (0.0-0.7) Basophils # (Auto) 0.1x10^3/uL (0.0-0.2) Sodium Level 147mmol/L (136-145) H Potassium Level 4.2mmol/L (3.5-5.1) Chloride Level 112mmol/L (98-107) H Carbon Dioxide Level 31mmol/L (21-32) Anion Gap 4 (6-14) L Blood Urea Nitrogen 19mg/dL (8-26) Creatinine 1.1mg/dL (0.7-1.3) Estimated GFR (Cockcroft-Gault) 65.4 BUN/Creatinine Ratio 17 (6-20) Glucose Level 95mg/dL (70-99) Calcium Level 8.3mg/dL (8.5-10.1) L Total Bilirubin 0.2mg/dL (0.2-1.0) Aspartate Amino Transferase (AST) 7U/L (15-37) L Alanine Aminotransferase (ALT) 14U/L (16-63) L Alkaline Phosphatase 63U/L (46-116) Total Protein 6.5g/dL (6.4-8.2) Albumin 3.0g/dL (3.4-5.0) L Albumin/Globulin Ratio 0.9 (1.0-1.7) L Valproic Acid Level 40mcg/mL (50-100) L Valproic Acid Last Dose Date 06/25/2016 Valproic Acid Last Dose Time 2100 Current Medications: Meds: Current Medications Acetaminophen (Tylenol) 650 mg PRN Q6HRS PRN PO PAIN / TEMP; Start 06/16/16 at 03:15; Status Cancel Multi-Ingredient Ointment (Analgesic [place]) 1 sajan PRN QID PRN TP MUSCLE PAIN Last administered on 06/26/16 21:01; Start 06/16/16 at 03:15 Al Hydroxide/Mg Hydroxide (Mylanta Plus Xs) 15 ml PRN AFTMEALHC PRN PO DYSPEPSIA; Start 06/16/16 at 03:15 Magnesium Hydroxide (Milk Of Magnesia) 2,400 mg PRN QHS PRN PO CONSTIPATION; Start 06/16/16 at 03:15 Chlorpromazine HCl (Thorazine) 12.5 mg BID PO Last administered on 06/22/16 08: 31; Start 06/16/16 at 09:00; Stop 06/22/16 at 18:21; Status DC Divalproex Sodium (Depakote Er) 375 mg BID PO Last administered on 06/17/16 09 :55; Start 06/16/16 at 09:00; Stop 06/17/16 at 15:02; Status DC Donepezil HCl (Aricept) 10 mg DAILY PO Last administered on 06/26/16 08:11; Start 06/16/16 at 09:00 Lorazepam (Ativan) 1 mg PRN Q4HRS PRN PO ANXIETY / AGITATION Last administered on 06/16/16 22:40; Start 06/16/16 at 03:45 Memantine (Namenda) 10 mg BID PO Last administered on 06/26/16 19:53; Start at 09:00 Quetiapine Fumarate (SEROquel) 50 mg DAILY PO Last administered on 06/23/16 10: 18; Start 06/16/16 at 09:00; Stop 06/23/16 at 18:50; Status DC Quetiapine Fumarate (SEROquel) 100 mg HS PO Last administered on 06/22/16 20:12 ; Start 06/16/16 at 21:00; Stop 06/23/16 at 18:50; Status DC Trazodone HCl (Desyrel) 50 mg HS PO Last administered on 06/26/16 19:56; Start 06/16/16 at 21:00 Acetaminophen (Tylenol) 650 mg BID PO Last administered on 06/26/16 19:53; Start 06/16/16 at 09:00 Acetaminophen (Tylenol) 650 mg PRN Q4HRS PRN PO Pain/Fever Last administered on 06/19/16 15:06; Start 06/16/16 at 03:45 Aspirin (Aspirin Enteric Coated) 81 mg DAILY PO Last administered on 06/26/16 08:12; Start 06/16/16 at 09:00 Cyanocobalamin (Vitamin B-12) 1,000 mcg DAILY PO Last administered on 06/26/16 08:11; Start 06/16/16 at 09:00 Docusate Sodium (Colace) 100 mg DAILY PO Last administered on 06/26/16 08:10; Start 06/16/16 at 09:00 Finasteride (Proscar) 5 mg DAILY PO Last administered on 06/26/16 08:11; Start 06/16/16 at 09:00 Magnesium Hydroxide (Milk Of Magnesia) 400 mg PRN DAILY PRN PO CONSTIPATION; Start 06/16/16 at 03:45 Tamsulosin HCl (Flomax) 0.4 mg QHS PO Last administered on 06/26/16 19:56; Start 06/16/16 at 21:00 Diltiazem HCl (Cardizem 24hr Cd) 120 mg DAILY PO Last administered on 06/26/16 08:11; Start 06/16/16 at 09:00 Multivitamins/ Minerals (I-Matthew) 1 tab DAILY PO Supplement Last administered on 06/26/16 08:10; Start 06/16/16 at 09:00 Ketotifen Fumarate (Zaditor) 1 drop BID OU Last administered on 06/17/16 09:54 ; Start 06/16/16 at 09:00; Stop 06/17/16 at 15:00; Status DC Fish Oil (Fish Oil) 1,000 mg DAILY PO Supplement Last administered on 06/26/16 08:10; Start 06/16/16 at 09:00 Thiamine HCl (Vitamin B-1) 250 mg BID PO supplement Last administered on 19:53; Start 06/16/16 at 09:00 Trazodone HCl (Desyrel) 50 mg PRN QHS PRN PO insomnia Last administered on 06/19 00:02; Start 06/16/16 at 21:00 Ketotifen Fumarate (Zaditor) 1 drop BID OU Last administered on 06/26/16 19:53 ; Start 06/17/16 at 15:00 Divalproex Sodium (Depakote) 375 mg BID PO Last administered on 06/19/16 10:18 ; Start 06/17/16 at 21:00; Stop 06/19/16 at 15:14; Status DC Levothyroxine Sodium (Synthroid) 25 mcg DAILY07 PO Last administered on 05:31; Start 06/18/16 at 07:00 Vitamin D (Vitamin D3) 50,000 unit WEEKLY PO Last administered on 06/24/16 08: 53; Start 06/24/16 at 09:00 Divalproex Sodium (Depakote) 500 mg BID PO Last administered on 06/23/16 10:15 ; Start 06/19/16 at 21:00; Stop 06/23/16 at 18:51; Status DC Risperidone (Risperdal) 0.125 mg BID PO Last administered on 06/24/16 08:51; Start 06/22/16 at 21:00; Stop 06/24/16 at 18:20; Status DC Divalproex Sodium (Depakote) 625 mg BID PO Last administered on 06/26/16 19:55 ; Start 06/23/16 at 21:00 Risperidone (Risperdal) 0.125 mg TID PO Last administered on 06/26/16 19:55; Start 06/24/16 at 18:30 Trazodone HCl (Desyrel) 25 mg TID PO Last administered on 06/26/16 19:57; Start 06/24/16 at 21:00 Active Scripts Active Reported Acetaminophen 325 Mg Tablet 650 Mg PO BID Trazodone Hcl 50 Mg Tablet 50 Mg PO HS Thiamine Hcl 250 Mg Tablet 250 Mg PO BID Quetiapine Fumarate 50 Mg Tablet 50 Mg PO DAILY Quetiapine Fumarate 100 Mg Tablet 100 Mg PO HS Milk Of Magnesia (Magnesium Hydroxide) 400 Mg/5 Ml Oral.susp 400 Mg PO PRN DAILY PRN Pataday (Olopatadine Hcl) 2.5 Ml Drops 1 Drop OU PRN PRN Diltiazem Hcl Tablet (Diltiazem Hcl) 60 Mg Tablet 120 Mg PO DAILY Chlorpromazine Hcl 25 Mg Tablet 12.5 Mg PO BID Lorazepam 1 Mg Tablet 1 Mg PO PRN Q4HRS PRN Proscar (Finasteride) 5 Mg Tablet 5 Mg PO DAILY Flomax (Tamsulosin Hcl) 0.4 Mg Cap.er.24h 0.4 Mg PO QHS [place] 3 Fish Oil Softgel ([place]-3 Fatty Acids/Fish Oil) 1 Each Capsule.dr 1,200 Mg PO DAILY Donepezil Hcl 10 Mg Tablet 10 Mg PO DAILY Depakote Er (Divalproex Sodium) 250 Mg Tab.er.24h 375 Mg PO BID Namenda (Memantine Hcl) 10 Mg Tablet 10 Mg PO BID Tylenol (Acetaminophen) 325 Mg Tablet 650 Mg PO PRN Q4HRS PRN Vitamin B-12 (Cyanocobalamin (Vitamin B-12)) 1,000 Mcg Tablet 1,000 Mcg PO DAILY Aspirin Ec (Aspirin) 81 Mg Tablet.dr 81 Mg PO DAILY Multivitamins (Multivitamin) 1 Each Tablet 1 Tab PO DAILY Docusate Sodium 100 Mg Capsule 100 Mg PO DAILY Diagnosis: Problems: (1) Agitation (2) Anxiety disorder (3) Dementia in Alzheimer's disease with delusions (4) Dementia in Alzheimer's disease with depression (5) Dementia, vascular, with delusions (6) Dementia, vascular, with depression (7) Impulse control disorder NATASHA LAIRD MD Jun 26, 2016 21:12
--- NOTE | 2016-06-27 00:56 | PN ---
DATE: 06/24/2016 PSYCHIATRIC PROGRESS NOTE This is a late entry for 06/24/2016, covers elements not covered in my initial note. SUBJECTIVE: The patient seen individually. Also staffed at a treatment team meeting with the entire team and the patient's daughter Krupa attended the conference. Reviewed at length his history, diagnosis, and placement. Appetite 100%, sleeping 6-1/2 to 7-1/2 hours. Cooperative at times and other times, he gets agitated, restless, sexually inappropriate x 2. The morning of 06/24/2016, he refused to leave the dining room, threw a chair at the door, extremely aggressive, potentially dangerous, refused showers the previous night. REVIEW OF SYSTEMS: No CV, , eye, ENT or pulmonary system symptoms on review. Reliability poor. MENTAL STATUS EXAM: Oriented to himself. Insight, judgment, recent and remote memory, attention, concentration, fund of knowledge poor, consistent with his diagnoses mentioned in my initial note. PLAN: Continue current psychotropics. Recently adjusted the Depakote, we will see how he does. May need to make further adjustments, especially since we recently stopped the Seroquel. We may need to increase the Risperdal. Maintain Depakote, Risperdal, Aricept, Ativan p.r.n., Namenda, trazodone and we may also use scheduled trazodone if agitation persists despite all of the above. NATASHA LAIRD MD DR: ONEYDA/ozzie JOB#: [id number] / [id number]
--- NOTE | 2016-06-27 00:58 | PN ---
DATE: 06/25/2016 PSYCHIATRIC PROGRESS NOTE This is a late entry of 06/25/2016 covers elements not covered in my initial note. SUBJECTIVE: The patient has done a little better on 06/25/2016 since we added trazodone 25 mg t.i.d. on the previous day, increase the Risperdal to 1.25 mg 3 times a day while maintaining the Depakote and the rest of the psychotropics given his marked aggression the day before. 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 REVIEW OF SYSTEMS: No CV, , eye, ENT or pulmonary system symptoms on review. Reliability poor. MENTAL STATUS EXAM: Oriented to himself. Insight, judgment, recent and remote memory, attention, concentration, fund of knowledge poor, consistent with his diagnosis mentioned in my initial note. PLAN: Continue current psychotropics, follow labs level on the Depakote. Rest changes as noted above. MAN Josh LAIRD MD DR: ONEYDA/ozzie JOB#: [id number] / [id number]
[2016-06-27] MEDS: LEVOTHYROXINE 25 MCG TABLET. PO SCH (05:44)
[2016-06-27 05:45] VITALS: BP 152/78
[2016-06-27] MEDS: FINASTERIDE 5 MG TABLET PO SCH (07:53)
[2016-06-27] MEDS: DONEPEZIL HCL 10 MG TABLET PO SCH (07:53)
[2016-06-27] MEDS: risperiDONE 0.25 MG TABLET. PO SCH ×3 (07:53→20:15)
[2016-06-27] MEDS: DOCUSATE SODIUM 100 MG CAPSULE PO SCH (07:53)
[2016-06-27] MEDS: OMEGA-3 FATTY ACIDS/FISH OIL 1,000 MG CAPSULE. PO SCH (07:54)
[2016-06-27] MEDS: MEMANTINE 10 MG TABLET. PO SCH ×2 (07:54→20:12)
[2016-06-27] MEDS: ASPIRIN ENTERIC COATED 81 MG TABLET.DR. PO SCH (07:54)
[2016-06-27] MEDS: DIVALPROEX SODIUM 125 MG TABLET.DR. PO SCH (07:54)
[2016-06-27] MEDS: CYANOCOBALAMIN (VITAMIN B-12) 1,000 MCG TABLET. PO SCH (07:54)
[2016-06-27] MEDS: DILTIAZEM HCL 120 MG CAP.ER.24H PO SCH (07:54)
[2016-06-27] MEDS: THIAMINE 100 MG TABLET. PO SCH ×2 (07:54→20:12)
[2016-06-27] MEDS: ACETAMINOPHEN 325 MG TABLET PO SCH ×2 (07:54→20:13)
[2016-06-27] MEDS: MULTIVITAMIN I-VITE TABLET. PO SCH (07:54)
[2016-06-27] MEDS: traZODone 50 MG TABLET. PO SCH ×4 (07:56→20:17)
[2016-06-27] MEDS: KETOTIFEN FUMARATE 0.025% OPHT SOLUTION BOTTLE. OU SCH ×2 (07:56→20:16)
[2016-06-27 15:42] VITALS: BP 113/72
[2016-06-27] MEDS: TAMSULOSIN 0.4 MG CAP.ER.24H. PO SCH (20:15)
[2016-06-27] MEDS: DIVALPROEX SODIUM 250 MG TABLET.DR. PO SCH (20:16)
--- NOTE | 2016-06-27 22:00 | PDOC ---
Exam Jake Demential Exam: Jake Note: Please also refer to the separate dictated note~for this date of service dictated separately.~Patient seen individually. Discussed the patient with Nursing staff reviewed the chart.~Reviewed interim history and current functioning. Reviewed vital signs,~Labs/ Radiology~and current medications noted below. Continue current treatment with the changes noted in the dictated addendum note Assessment: Vital Signs: Vital Signs Date Time Temp Pulse Resp B/P Pulse Ox O2 Delivery O2 Flow Rate FiO2 06/27/16 15:42 97.9 86 19 113/72 98 06/23/16 05:45 Room Air I&O Intake and Output 06/27/16 07:00 Intake Total 720 ml Balance 720 ml Intake Oral 720 ml Current Medications: Meds: Current Medications Acetaminophen (Tylenol) 650 mg PRN Q6HRS PRN PO PAIN / TEMP; Start 06/16/16 at 03:15; Status Cancel Multi-Ingredient Ointment (Analgesic [place]) 1 sajan PRN QID PRN TP MUSCLE PAIN Last administered on 06/26/16 21:01; Start 06/16/16 at 03:15 Al Hydroxide/Mg Hydroxide (Mylanta Plus Xs) 15 ml PRN AFTMEALHC PRN PO DYSPEPSIA; Start 06/16/16 at 03:15 Magnesium Hydroxide (Milk Of Magnesia) 2,400 mg PRN QHS PRN PO CONSTIPATION; Start 06/16/16 at 03:15 Chlorpromazine HCl (Thorazine) 12.5 mg BID PO Last administered on 06/22/16 08: 31; Start 06/16/16 at 09:00; Stop 06/22/16 at 18:21; Status DC Divalproex Sodium (Depakote Er) 375 mg BID PO Last administered on 06/17/16 09 :55; Start 06/16/16 at 09:00; Stop 06/17/16 at 15:02; Status DC Donepezil HCl (Aricept) 10 mg DAILY PO Last administered on 06/27/16 07:53; Start 06/16/16 at 09:00 Lorazepam (Ativan) 1 mg PRN Q4HRS PRN PO ANXIETY / AGITATION Last administered on 06/16/16 22:40; Start 06/16/16 at 03:45 Memantine (Namenda) 10 mg BID PO Last administered on 06/27/16 20:12; Start at 09:00 Quetiapine Fumarate (SEROquel) 50 mg DAILY PO Last administered on 06/23/16 10: 18; Start 06/16/16 at 09:00; Stop 06/23/16 at 18:50; Status DC Quetiapine Fumarate (SEROquel) 100 mg HS PO Last administered on 06/22/16 20:12 ; Start 06/16/16 at 21:00; Stop 06/23/16 at 18:50; Status DC Trazodone HCl (Desyrel) 50 mg HS PO Last administered on 06/27/16 20:12; Start 06/16/16 at 21:00 Acetaminophen (Tylenol) 650 mg BID PO Last administered on 06/27/16 20:13; Start 06/16/16 at 09:00 Acetaminophen (Tylenol) 650 mg PRN Q4HRS PRN PO Pain/Fever Last administered on 06/19/16 15:06; Start 06/16/16 at 03:45 Aspirin (Aspirin Enteric Coated) 81 mg DAILY PO Last administered on 06/27/16 07:54; Start 06/16/16 at 09:00 Cyanocobalamin (Vitamin B-12) 1,000 mcg DAILY PO Last administered on 06/27/16 07:54; Start 06/16/16 at 09:00 Docusate Sodium (Colace) 100 mg DAILY PO Last administered on 06/27/16 07:53; Start 06/16/16 at 09:00 Finasteride (Proscar) 5 mg DAILY PO Last administered on 06/27/16 07:53; Start 06/16/16 at 09:00 Magnesium Hydroxide (Milk Of Magnesia) 400 mg PRN DAILY PRN PO CONSTIPATION; Start 06/16/16 at 03:45 Tamsulosin HCl (Flomax) 0.4 mg QHS PO Last administered on 06/27/16 20:15; Start 06/16/16 at 21:00 Diltiazem HCl (Cardizem 24hr Cd) 120 mg DAILY PO Last administered on 06/27/16 07:54; Start 06/16/16 at 09:00 Multivitamins/ Minerals (I-Matthew) 1 tab DAILY PO Supplement Last administered on 06/27/16 07:54; Start 06/16/16 at 09:00 Ketotifen Fumarate (Zaditor) 1 drop BID OU Last administered on 06/17/16 09:54 ; Start 06/16/16 at 09:00; Stop 06/17/16 at 15:00; Status DC Fish Oil (Fish Oil) 1,000 mg DAILY PO Supplement Last administered on 06/27/16 07:54; Start 06/16/16 at 09:00 Thiamine HCl (Vitamin B-1) 250 mg BID PO supplement Last administered on 20:12; Start 06/16/16 at 09:00 Trazodone HCl (Desyrel) 50 mg PRN QHS PRN PO insomnia Last administered on 06/19 00:02; Start 06/16/16 at 21:00 Ketotifen Fumarate (Zaditor) 1 drop BID OU Last administered on 06/27/16 20:16 ; Start 06/17/16 at 15:00 Divalproex Sodium (Depakote) 375 mg BID PO Last administered on 06/19/16 10:18 ; Start 06/17/16 at 21:00; Stop 06/19/16 at 15:14; Status DC Levothyroxine Sodium (Synthroid) 25 mcg DAILY07 PO Last administered on 05:44; Start 06/18/16 at 07:00 Vitamin D (Vitamin D3) 50,000 unit WEEKLY PO Last administered on 06/24/16 08: 53; Start 06/24/16 at 09:00 Divalproex Sodium (Depakote) 500 mg BID PO Last administered on 06/23/16 10:15 ; Start 06/19/16 at 21:00; Stop 06/23/16 at 18:51; Status DC Risperidone (Risperdal) 0.125 mg BID PO Last administered on 06/24/16 08:51; Start 06/22/16 at 21:00; Stop 06/24/16 at 18:20; Status DC Divalproex Sodium (Depakote) 625 mg BID PO Last administered on 06/27/16 07:54 ; Start 06/23/16 at 21:00; Stop 06/27/16 at 18:26; Status DC Risperidone (Risperdal) 0.125 mg TID PO Last administered on 06/27/16 20:15; Start 06/24/16 at 18:30 Trazodone HCl (Desyrel) 25 mg TID PO Last administered on 06/27/16 20:17; Start 06/24/16 at 21:00 Divalproex Sodium (Depakote) 750 mg BID PO Last administered on 06/27/16 20:16 ; Start 06/27/16 at 21:00 Active Scripts Active Reported Acetaminophen 325 Mg Tablet 650 Mg PO BID Trazodone Hcl 50 Mg Tablet 50 Mg PO HS Thiamine Hcl 250 Mg Tablet 250 Mg PO BID Quetiapine Fumarate 50 Mg Tablet 50 Mg PO DAILY Quetiapine Fumarate 100 Mg Tablet 100 Mg PO HS Milk Of Magnesia (Magnesium Hydroxide) 400 Mg/5 Ml Oral.susp 400 Mg PO PRN DAILY PRN Pataday (Olopatadine Hcl) 2.5 Ml Drops 1 Drop OU PRN PRN Diltiazem Hcl Tablet (Diltiazem Hcl) 60 Mg Tablet 120 Mg PO DAILY Chlorpromazine Hcl 25 Mg Tablet 12.5 Mg PO BID Lorazepam 1 Mg Tablet 1 Mg PO PRN Q4HRS PRN Proscar (Finasteride) 5 Mg Tablet 5 Mg PO DAILY Flomax (Tamsulosin Hcl) 0.4 Mg Cap.er.24h 0.4 Mg PO QHS [place] 3 Fish Oil Softgel ([place]-3 Fatty Acids/Fish Oil) 1 Each Capsule. 1,200 Mg PO DAILY Donepezil Hcl 10 Mg Tablet 10 Mg PO DAILY Depakote Er (Divalproex Sodium) 250 Mg Tab.er.24h 375 Mg PO BID Namenda (Memantine Hcl) 10 Mg Tablet 10 Mg PO BID Tylenol (Acetaminophen) 325 Mg Tablet 650 Mg PO PRN Q4HRS PRN Vitamin B-12 (Cyanocobalamin (Vitamin B-12)) 1,000 Mcg Tablet 1,000 Mcg PO DAILY Aspirin Ec (Aspirin) 81 Mg Tablet.dr 81 Mg PO DAILY Multivitamins (Multivitamin) 1 Each Tablet 1 Tab PO DAILY Docusate Sodium 100 Mg Capsule 100 Mg PO DAILY Diagnosis: Problems: (1) Agitation (2) Anxiety disorder (3) Dementia in Alzheimer's disease with delusions (4) Dementia in Alzheimer's disease with depression (5) Dementia, vascular, with delusions (6) Dementia, vascular, with depression (7) Impulse control disorder NATASHA LAIRD MD Jun 27, 2016 22:00
[2016-06-28 05:58] VITALS: BP 122/76
[2016-06-28] MEDS: LEVOTHYROXINE 25 MCG TABLET. PO SCH (06:22)
[2016-06-28] MEDS: FINASTERIDE 5 MG TABLET PO SCH (08:01)
[2016-06-28] MEDS: ASPIRIN ENTERIC COATED 81 MG TABLET.DR. PO SCH (08:01)
[2016-06-28] MEDS: traZODone 50 MG TABLET. PO SCH ×3 (08:01→19:20)
[2016-06-28] MEDS: KETOTIFEN FUMARATE 0.025% OPHT SOLUTION BOTTLE. OU SCH ×2 (08:01→19:21)
[2016-06-28] MEDS: DILTIAZEM HCL 120 MG CAP.ER.24H PO SCH (08:02)
[2016-06-28] MEDS: DIVALPROEX SODIUM 250 MG TABLET.DR. PO SCH ×2 (08:02→19:20)
[2016-06-28] MEDS: OMEGA-3 FATTY ACIDS/FISH OIL 1,000 MG CAPSULE. PO SCH (08:02)
[2016-06-28] MEDS: risperiDONE 0.25 MG TABLET. PO SCH ×3 (08:02→19:20)
[2016-06-28] MEDS: DONEPEZIL HCL 10 MG TABLET PO SCH (08:02)
[2016-06-28] MEDS: MEMANTINE 10 MG TABLET. PO SCH ×2 (08:02→19:18)
[2016-06-28] MEDS: DOCUSATE SODIUM 100 MG CAPSULE PO SCH (08:02)
[2016-06-28] MEDS: MULTIVITAMIN I-VITE TABLET. PO SCH (08:02)
[2016-06-28] MEDS: ACETAMINOPHEN 325 MG TABLET PO SCH ×2 (08:02→19:18)
[2016-06-28] MEDS: CYANOCOBALAMIN (VITAMIN B-12) 1,000 MCG TABLET. PO SCH (08:02)
[2016-06-28] MEDS: THIAMINE 100 MG TABLET. PO SCH ×2 (08:03→19:18)
[2016-06-28 15:53] VITALS: BP 138/83
[2016-06-28] MEDS: TAMSULOSIN 0.4 MG CAP.ER.24H. PO SCH (19:18)
--- NOTE | 2016-06-28 20:08 | PN ---
DATE: 06/26/2016 PSYCHIATRIC PROGRESS NOTE This is late entry of 06/26/2016, covers elements not covered in my initial note. SUBJECTIVE: Per nursing report, the patient has been withdrawn out to meal, medication compliant, refused shower. REVIEW OF SYSTEMS: No CV, , eye, ENT or pulmonary system symptoms on review. Reliability poor. MENTAL STATUS EXAMINATION: Oriented to himself. Insight, judgment, recent and remote memory, attention, concentration, fund of knowledge poor, consistent with his diagnosis mentioned in my initial note. PLAN: Continue current psychotropics, consider adjustment as clinically indicated. MAN Josh LAIRD MD DR: ONEYDA/ozzie JOB#: [id number] / [id number]
--- NOTE | 2016-06-28 20:17 | PN ---
DATE: 06/27/2016 PSYCHIATRIC PROGRESS NOTE This is late entry of 06/27/2016, covers elements not covered in my initial note. Overall, the patient is being delusional previous night, thought he was incarcerated, showered on 06/26/2016, pleasantly confused, compliant. REVIEW OF SYSTEMS: No CV, , eye, ENT or pulmonary system symptoms on review. Reliability poor. MENTAL STATUS EXAMINATION: Oriented to himself. Insight, judgment, recent and remote memory, attention, concentration, fund of knowledge poor, consistent with his diagnosis mentioned in my initial note. PLAN: Valproic acid level low at 40, increase Depakote from 625 b.i.d. to 750 b.i.d. Check labs level in 3 days. Adjust further as clinically indicated. Maintain rest of the psychotropics unchanged. MAN Josh LAIRD MD DR: ONEYDA/ozzie JOB#: [id number] / [id number]
--- NOTE | 2016-06-28 20:58 | PDOC ---
Exam Jake Demential Exam: Jake Note: Please also refer to the separate dictated note~for this date of service dictated separately.~Patient seen individually. Discussed the patient with Nursing staff reviewed the chart.~Reviewed interim history and current functioning. Reviewed vital signs,~Labs/ Radiology~and current medications noted below. Continue current treatment with the changes noted in the dictated addendum note Assessment: Vital Signs: Vital Signs Date Time Temp Pulse Resp B/P Pulse Ox O2 Delivery O2 Flow Rate FiO2 06/28/16 15:53 98.2 95 20 138/83 96 Room Air I&O Intake and Output 06/28/16 07:00 Intake Total 360 ml Balance 360 ml Intake Oral 360 ml # Voids 3 Current Medications: Meds: Current Medications Acetaminophen (Tylenol) 650 mg PRN Q6HRS PRN PO PAIN / TEMP; Start 06/16/16 at 03:15; Status Cancel Multi-Ingredient Ointment (Analgesic [place]) 1 sajan PRN QID PRN TP MUSCLE PAIN Last administered on 06/26/16 21:01; Start 06/16/16 at 03:15 Al Hydroxide/Mg Hydroxide (Mylanta Plus Xs) 15 ml PRN AFTMEALHC PRN PO DYSPEPSIA; Start 06/16/16 at 03:15 Magnesium Hydroxide (Milk Of Magnesia) 2,400 mg PRN QHS PRN PO CONSTIPATION; Start 06/16/16 at 03:15 Chlorpromazine HCl (Thorazine) 12.5 mg BID PO Last administered on 06/22/16 08: 31; Start 06/16/16 at 09:00; Stop 06/22/16 at 18:21; Status DC Divalproex Sodium (Depakote Er) 375 mg BID PO Last administered on 06/17/16 09 :55; Start 06/16/16 at 09:00; Stop 06/17/16 at 15:02; Status DC Donepezil HCl (Aricept) 10 mg DAILY PO Last administered on 06/28/16 08:02; Start 06/16/16 at 09:00 Lorazepam (Ativan) 1 mg PRN Q4HRS PRN PO ANXIETY / AGITATION Last administered on 06/16/16 22:40; Start 06/16/16 at 03:45 Memantine (Namenda) 10 mg BID PO Last administered on 06/28/16 19:18; Start at 09:00 Quetiapine Fumarate (SEROquel) 50 mg DAILY PO Last administered on 06/23/16 10: 18; Start 06/16/16 at 09:00; Stop 06/23/16 at 18:50; Status DC Quetiapine Fumarate (SEROquel) 100 mg HS PO Last administered on 06/22/16 20:12 ; Start 06/16/16 at 21:00; Stop 06/23/16 at 18:50; Status DC Trazodone HCl (Desyrel) 50 mg HS PO Last administered on 06/28/16 19:20; Start 06/16/16 at 21:00 Acetaminophen (Tylenol) 650 mg BID PO Last administered on 06/28/16 19:18; Start 06/16/16 at 09:00 Acetaminophen (Tylenol) 650 mg PRN Q4HRS PRN PO Pain/Fever Last administered on 06/19/16 15:06; Start 06/16/16 at 03:45 Aspirin (Aspirin Enteric Coated) 81 mg DAILY PO Last administered on 06/28/16 08:01; Start 06/16/16 at 09:00 Cyanocobalamin (Vitamin B-12) 1,000 mcg DAILY PO Last administered on 06/28/16 08:02; Start 06/16/16 at 09:00 Docusate Sodium (Colace) 100 mg DAILY PO Last administered on 06/28/16 08:02; Start 06/16/16 at 09:00 Finasteride (Proscar) 5 mg DAILY PO Last administered on 06/28/16 08:01; Start 06/16/16 at 09:00 Magnesium Hydroxide (Milk Of Magnesia) 400 mg PRN DAILY PRN PO CONSTIPATION Last administered on 06/28/16 06:22; Start 06/16/16 at 03:45 Tamsulosin HCl (Flomax) 0.4 mg QHS PO Last administered on 06/28/16 19:18; Start 06/16/16 at 21:00 Diltiazem HCl (Cardizem 24hr Cd) 120 mg DAILY PO Last administered on 06/28/16 08:02; Start 06/16/16 at 09:00 Multivitamins/ Minerals (I-Matthew) 1 tab DAILY PO Supplement Last administered on 06/28/16 08:02; Start 06/16/16 at 09:00 Ketotifen Fumarate (Zaditor) 1 drop BID OU Last administered on 06/17/16 09:54 ; Start 06/16/16 at 09:00; Stop 06/17/16 at 15:00; Status DC Fish Oil (Fish Oil) 1,000 mg DAILY PO Supplement Last administered on 06/28/16 08:02; Start 06/16/16 at 09:00 Thiamine HCl (Vitamin B-1) 250 mg BID PO supplement Last administered on 19:18; Start 06/16/16 at 09:00 Trazodone HCl (Desyrel) 50 mg PRN QHS PRN PO insomnia Last administered on 06/19 00:02; Start 06/16/16 at 21:00 Ketotifen Fumarate (Zaditor) 1 drop BID OU Last administered on 06/28/16 19:21 ; Start 06/17/16 at 15:00 Divalproex Sodium (Depakote) 375 mg BID PO Last administered on 06/19/16 10:18 ; Start 06/17/16 at 21:00; Stop 06/19/16 at 15:14; Status DC Levothyroxine Sodium (Synthroid) 25 mcg DAILY07 PO Last administered on 06:22; Start 06/18/16 at 07:00 Vitamin D (Vitamin D3) 50,000 unit WEEKLY PO Last administered on 06/24/16 08: 53; Start 06/24/16 at 09:00 Divalproex Sodium (Depakote) 500 mg BID PO Last administered on 06/23/16 10:15 ; Start 06/19/16 at 21:00; Stop 06/23/16 at 18:51; Status DC Risperidone (Risperdal) 0.125 mg BID PO Last administered on 06/24/16 08:51; Start 06/22/16 at 21:00; Stop 06/24/16 at 18:20; Status DC Divalproex Sodium (Depakote) 625 mg BID PO Last administered on 06/27/16 07:54 ; Start 06/23/16 at 21:00; Stop 06/27/16 at 18:26; Status DC Risperidone (Risperdal) 0.125 mg TID PO Last administered on 06/28/16 19:20; Start 06/24/16 at 18:30 Trazodone HCl (Desyrel) 25 mg TID PO Last administered on 06/28/16 12:57; Start 06/24/16 at 21:00; Stop 06/28/16 at 19:29; Status DC Divalproex Sodium (Depakote) 750 mg BID PO Last administered on 06/28/16 19:20 ; Start 06/27/16 at 21:00 Trazodone HCl (Desyrel) 25 mg TID@,,17 PO ; Start 06/29/16 at 09:00 Active Scripts Active Reported Acetaminophen 325 Mg Tablet 650 Mg PO BID Trazodone Hcl 50 Mg Tablet 50 Mg PO HS Thiamine Hcl 250 Mg Tablet 250 Mg PO BID Quetiapine Fumarate 50 Mg Tablet 50 Mg PO DAILY Quetiapine Fumarate 100 Mg Tablet 100 Mg PO HS Milk Of Magnesia (Magnesium Hydroxide) 400 Mg/5 Ml Oral.susp 400 Mg PO PRN DAILY PRN Pataday (Olopatadine Hcl) 2.5 Ml Drops 1 Drop OU PRN PRN Diltiazem Hcl Tablet (Diltiazem Hcl) 60 Mg Tablet 120 Mg PO DAILY Chlorpromazine Hcl 25 Mg Tablet 12.5 Mg PO BID Lorazepam 1 Mg Tablet 1 Mg PO PRN Q4HRS PRN Proscar (Finasteride) 5 Mg Tablet 5 Mg PO DAILY Flomax (Tamsulosin Hcl) 0.4 Mg Cap.er.24h 0.4 Mg PO QHS [place] 3 Fish Oil Softgel ([place]-3 Fatty Acids/Fish Oil) 1 Each Capsule.dr 1,200 Mg PO DAILY Donepezil Hcl 10 Mg Tablet 10 Mg PO DAILY Depakote Er (Divalproex Sodium) 250 Mg Tab.er.24h 375 Mg PO BID Namenda (Memantine Hcl) 10 Mg Tablet 10 Mg PO BID Tylenol (Acetaminophen) 325 Mg Tablet 650 Mg PO PRN Q4HRS PRN Vitamin B-12 (Cyanocobalamin (Vitamin B-12)) 1,000 Mcg Tablet 1,000 Mcg PO DAILY Aspirin Ec (Aspirin) 81 Mg Tablet.dr 81 Mg PO DAILY Multivitamins (Multivitamin) 1 Each Tablet 1 Tab PO DAILY Docusate Sodium 100 Mg Capsule 100 Mg PO DAILY Diagnosis: Problems: (1) Agitation (2) Anxiety disorder (3) Dementia in Alzheimer's disease with delusions (4) Dementia in Alzheimer's disease with depression (5) Dementia, vascular, with delusions (6) Dementia, vascular, with depression (7) Impulse control disorder NATASHA LAIRD MD Jun 28, 2016 20:58
[2016-06-29 05:56] VITALS: BP 145/82
[2016-06-29] MEDS: LEVOTHYROXINE 25 MCG TABLET. PO SCH (06:06)
[2016-06-29] MEDS: THIAMINE 100 MG TABLET. PO SCH ×2 (09:52→19:32)
[2016-06-29] MEDS: DILTIAZEM HCL 120 MG CAP.ER.24H PO SCH (09:53)
[2016-06-29] MEDS: FINASTERIDE 5 MG TABLET PO SCH (09:53)
[2016-06-29] MEDS: OMEGA-3 FATTY ACIDS/FISH OIL 1,000 MG CAPSULE. PO SCH (09:53)
[2016-06-29] MEDS: DOCUSATE SODIUM 100 MG CAPSULE PO SCH (09:53)
[2016-06-29] MEDS: risperiDONE 0.25 MG TABLET. PO SCH ×3 (09:53→19:33)
[2016-06-29] MEDS: CYANOCOBALAMIN (VITAMIN B-12) 1,000 MCG TABLET. PO SCH (09:53)
[2016-06-29] MEDS: ASPIRIN ENTERIC COATED 81 MG TABLET.DR. PO SCH (09:54)
[2016-06-29] MEDS: MULTIVITAMIN I-VITE TABLET. PO SCH (09:54)
[2016-06-29] MEDS: MEMANTINE 10 MG TABLET. PO SCH ×2 (09:54→19:33)
[2016-06-29] MEDS: ACETAMINOPHEN 325 MG TABLET PO SCH ×2 (09:54→19:32)
[2016-06-29] MEDS: DIVALPROEX SODIUM 250 MG TABLET.DR. PO SCH ×2 (09:54→19:31)
[2016-06-29] MEDS: DONEPEZIL HCL 10 MG TABLET PO SCH (09:54)
[2016-06-29] MEDS: KETOTIFEN FUMARATE 0.025% OPHT SOLUTION BOTTLE. OU SCH ×2 (09:55→19:34)
[2016-06-29] MEDS: traZODone 50 MG TABLET. PO SCH ×4 (09:57→19:33)
[2016-06-29 15:22] LABS: BILIRUBIN,URINE NEG (NEG); CLARITY,URINE TURBID; COLOR,URINE YELLOW; GLUCOSE,URINE NEG (NEG); NITRITE,URINE POS (NEG); UROBILINOGEN,URINE 0.2 mg/dL (0.2 mg/dL)
[2016-06-29 15:24] LABS: BACTERIA,URINE MOD /HPF (0-FEW); WBC,URINE TNTC /HPF (0-4)
[2016-06-29 15:30] VITALS: BP 156/80
[2016-06-29] MEDS: TAMSULOSIN 0.4 MG CAP.ER.24H. PO SCH (19:31)
--- NOTE | 2016-06-29 20:55 | PDOC ---
Exam Jake Demential Exam: Jake Note: Please also refer to the separate dictated note~for this date of service dictated separately.~Patient seen individually. Discussed the patient with Nursing staff reviewed the chart.~Reviewed interim history and current functioning. Reviewed vital signs,~Labs/ Radiology~and current medications noted below. Continue current treatment with the changes noted in the dictated addendum note Assessment: Vital Signs: Vital Signs Date Time Temp Pulse Resp B/P Pulse Ox O2 Delivery O2 Flow Rate FiO2 06/29/16 15:30 97.9 86 20 156/80 95 Room Air I&O Intake and Output 06/29/16 07:00 Intake Total 600 ml Balance 600 ml Intake Oral 600 ml # Voids 6 Labs: Laboratory Tests Test 06/29/16 14:41 Urine Collection Type Unknown Urine Color Yellow Urine Clarity Turbid Urine pH 7.0 Urine Specific [place] 1.025 Urine Protein >100 mg/dl (NEG-TRACE) Urine Glucose (UA) Negmg/dL (NEG) Urine Ketones (Stick) Tracemg/dL (NEG) Urine Blood Mod (NEG) Urine Nitrite Pos (NEG) Urine Bilirubin Neg (NEG) Urine Urobilinogen Dipstick 0.2mg/dL (0.2 mg/dL) Urine Leukocyte Esterase Large (NEG) Urine RBC 6-10/HPF (0-2) Urine WBC Tntc/HPF (0-4) Urine Squamous Epithelial Cells None/LPF Urine Bacteria Mod/HPF (0-FEW) Current Medications: Meds: Current Medications Acetaminophen (Tylenol) 650 mg PRN Q6HRS PRN PO PAIN / TEMP; Start 06/16/16 at 03:15; Status Cancel Multi-Ingredient Ointment (Analgesic [place]) 1 sajan PRN QID PRN TP MUSCLE PAIN Last administered on 06/26/16 21:01; Start 06/16/16 at 03:15 Al Hydroxide/Mg Hydroxide (Mylanta Plus Xs) 15 ml PRN AFTMEALHC PRN PO DYSPEPSIA; Start 06/16/16 at 03:15 Magnesium Hydroxide (Milk Of Magnesia) 2,400 mg PRN QHS PRN PO CONSTIPATION; Start 06/16/16 at 03:15 Chlorpromazine HCl (Thorazine) 12.5 mg BID PO Last administered on 06/22/16 08: 31; Start 06/16/16 at 09:00; Stop 4/3/17 at 18:21; Status DC Divalproex Sodium (Depakote Er) 375 mg BID PO Last administered on 06/17/16 09 :55; Start 06/16/16 at 09:00; Stop 06/17/16 at 15:02; Status DC Donepezil HCl (Aricept) 10 mg DAILY PO Last administered on 06/29/16 09:54; Start 06/16/16 at 09:00 Lorazepam (Ativan) 1 mg PRN Q4HRS PRN PO ANXIETY / AGITATION Last administered on 06/16/16 22:40; Start 06/16/16 at 03:45 Memantine (Namenda) 10 mg BID PO Last administered on 06/29/16 19:33; Start at 09:00 Quetiapine Fumarate (SEROquel) 50 mg DAILY PO Last administered on 06/23/16 10: 18; Start 06/16/16 at 09:00; Stop 06/23/16 at 18:50; Status DC Quetiapine Fumarate (SEROquel) 100 mg HS PO Last administered on 06/22/16 20:12 ; Start 06/16/16 at 21:00; Stop 06/23/16 at 18:50; Status DC Trazodone HCl (Desyrel) 50 mg HS PO Last administered on 06/29/16 19:33; Start 06/16/16 at 21:00 Acetaminophen (Tylenol) 650 mg BID PO Last administered on 06/29/16 19:32; Start 06/16/16 at 09:00 Acetaminophen (Tylenol) 650 mg PRN Q4HRS PRN PO Pain/Fever Last administered on 06/19/16 15:06; Start 06/16/16 at 03:45 Aspirin (Aspirin Enteric Coated) 81 mg DAILY PO Last administered on 06/29/16 09:54; Start 06/16/16 at 09:00 Cyanocobalamin (Vitamin B-12) 1,000 mcg DAILY PO Last administered on 09:53; Start 06/16/16 at 09:00 Docusate Sodium (Colace) 100 mg DAILY PO Last administered on 06/29/16 09:53; Start 06/16/16 at 09:00 Finasteride (Proscar) 5 mg DAILY PO Last administered on 06/29/16 09:53; Start 06/16/16 at 09:00 Magnesium Hydroxide (Milk Of Magnesia) 400 mg PRN DAILY PRN PO CONSTIPATION Last administered on 06/28/16 06:22; Start 06/16/16 at 03:45 Tamsulosin HCl (Flomax) 0.4 mg QHS PO Last administered on 06/29/16 19:31; Start 06/16/16 at 21:00 Diltiazem HCl (Cardizem 24hr Cd) 120 mg DAILY PO Last administered on 09:53; Start 06/16/16 at 09:00 Multivitamins/ Minerals (I-Matthew) 1 tab DAILY PO Supplement Last administered on 06/29/16 09:54; Start 06/16/16 at 09:00 Ketotifen Fumarate (Zaditor) 1 drop BID OU Last administered on 06/17/16 09:54 ; Start 06/16/16 at 09:00; Stop 06/17/16 at 15:00; Status DC Fish Oil (Fish Oil) 1,000 mg DAILY PO Supplement Last administered on 06/29/16 09:53; Start 06/16/16 at 09:00 Thiamine HCl (Vitamin B-1) 250 mg BID PO supplement Last administered on 19:32; Start 06/16/16 at 09:00 Trazodone HCl (Desyrel) 50 mg PRN QHS PRN PO insomnia Last administered on 06/19 00:02; Start 06/16/16 at 21:00 Ketotifen Fumarate (Zaditor) 1 drop BID OU Last administered on 06/29/16 19:34 ; Start 06/17/16 at 15:00 Divalproex Sodium (Depakote) 375 mg BID PO Last administered on 06/19/16 10:18 ; Start 06/17/16 at 21:00; Stop 06/19/16 at 15:14; Status DC Levothyroxine Sodium (Synthroid) 25 mcg DAILY07 PO Last administered on 06:06; Start 06/18/16 at 07:00 Vitamin D (Vitamin D3) 50,000 unit WEEKLY PO Last administered on 06/24/16 08: 53; Start 06/24/16 at 09:00 Divalproex Sodium (Depakote) 500 mg BID PO Last administered on 06/23/16 10:15 ; Start 06/19/16 at 21:00; Stop 06/23/16 at 18:51; Status DC Risperidone (Risperdal) 0.125 mg BID PO Last administered on 06/24/16 08:51; Start 06/22/16 at 21:00; Stop 06/24/16 at 18:20; Status DC Divalproex Sodium (Depakote) 625 mg BID PO Last administered on 06/27/16 07:54 ; Start 06/23/16 at 21:00; Stop 06/27/16 at 18:26; Status DC Risperidone (Risperdal) 0.125 mg TID PO Last administered on 06/29/16 19:33; Start 06/24/16 at 18:30 Trazodone HCl (Desyrel) 25 mg TID PO Last administered on 06/28/16 12:57; Start 06/24/16 at 21:00; Stop 06/28/16 at 19:29; Status DC Divalproex Sodium (Depakote) 750 mg BID PO Last administered on 06/29/16 19:31 ; Start 06/27/16 at 21:00 Trazodone HCl (Desyrel) 25 mg TID@,,17 PO Last administered on 06/29/16 17 :14; Start 06/29/16 at 09:00 Active Scripts Active Reported Acetaminophen 325 Mg Tablet 650 Mg PO BID Trazodone Hcl 50 Mg Tablet 50 Mg PO HS Thiamine Hcl 250 Mg Tablet 250 Mg PO BID Quetiapine Fumarate 50 Mg Tablet 50 Mg PO DAILY Quetiapine Fumarate 100 Mg Tablet 100 Mg PO HS Milk Of Magnesia (Magnesium Hydroxide) 400 Mg/5 Ml Oral.susp 400 Mg PO PRN DAILY PRN [place] (Olopatadine Hcl) 2.5 Ml Drops 1 Drop OU PRN PRN Diltiazem Hcl Tablet (Diltiazem Hcl) 60 Mg Tablet 120 Mg PO DAILY Chlorpromazine Hcl 25 Mg Tablet 12.5 Mg PO BID Lorazepam 1 Mg Tablet 1 Mg PO PRN Q4HRS PRN Proscar (Finasteride) 5 Mg Tablet 5 Mg PO DAILY Flomax (Tamsulosin Hcl) 0.4 Mg Cap.er.24h 0.4 Mg PO QHS [place] 3 Fish Oil Softgel ([place]-3 Fatty Acids/Fish Oil) 1 Each Capsule.dr 1,200 Mg PO DAILY Donepezil Hcl 10 Mg Tablet 10 Mg PO DAILY Depakote Er (Divalproex Sodium) 250 Mg Tab.er.24h 375 Mg PO BID Namenda (Memantine Hcl) 10 Mg Tablet 10 Mg PO BID Tylenol (Acetaminophen) 325 Mg Tablet 650 Mg PO PRN Q4HRS PRN Vitamin B-12 (Cyanocobalamin (Vitamin B-12)) 1,000 Mcg Tablet 1,000 Mcg PO DAILY Aspirin Ec (Aspirin) 81 Mg Tablet.dr 81 Mg PO DAILY Multivitamins (Multivitamin) 1 Each Tablet 1 Tab PO DAILY Docusate Sodium 100 Mg Capsule 100 Mg PO DAILY Diagnosis: Problems: (1) Agitation (2) Anxiety disorder (3) Dementia in Alzheimer's disease with delusions (4) Dementia in Alzheimer's disease with depression (5) Dementia, vascular, with delusions (6) Dementia, vascular, with depression (7) Impulse control disorder NATASHA LAIRD MD Jun 29, 2016 20:55
--- NOTE | 2016-06-29 23:40 | PN ---
DATE: 06/28/2016 PSYCHIATRIC PROGRESS NOTE This is late entry of 06/28/2016, covers elements not covered in my initial note. SUBJECTIVE: Overall, the patient had a better day per nursing report. He remains confused. No PRNs noted, seems to smile at staff, had a shower on 06/26/2016 and then again on 06/28/2016. REVIEW OF SYSTEMS: No CV, , eye, ENT or pulmonary system symptoms on review. Reliability poor. MENTAL STATUS EXAMINATION: Oriented to himself. Insight, judgment, recent and remote memory, attention, concentration, fund of knowledge poor, consistent with his diagnosis as mentioned in my initial note. PLAN: Increase Depakote to 750 b.i.d. since level at lower dosage is 40. Check labs level in 3 days. Maintain rest of psychotropics, adjust further as clinically indicated. MAN Josh LAIRD MD DR: ONEYDA/ozzie JOB#: [id number] / [id number]
[2016-06-30] MEDS: LEVOTHYROXINE 25 MCG TABLET. PO SCH (05:41)
[2016-06-30 06:15] VITALS: BP 122/82
[2016-06-30 06:16] LABS: BASO # 0.1 x10^3/uL (0.0-0.2); BASO % 1 % (0-3); EOS # 0.4 x10^3/uL (0.0-0.7); EOS % 6 % (0-3); HEMOGLOBIN 13.5 g/dL (13.0-17.5); LYMPH # 1.8 x10^3/uL (1.0-4.8); LYMPH % 25 % (24-48); MEAN CORPUSCULAR HEMOGLOBIN 30 pg (25-35); MEAN CORPUSCULAR HGB CONC 32 g/dL (31-37); MEAN CORPUSCULAR VOLUME 92 fL (79-100); MONO # 0.8 x10^3/uL (0.0-1.1); MONO % 11 % (0-9); NEUT # 4.3 x10^3uL (1.8-7.7); NEUT % 58 % (31-73); PLATELET COUNT 131 x10^3/uL (140-400); RED BLOOD COUNT 4.57 x10^6/uL (4.30-5.70); WHITE BLOOD COUNT 7.4 x10^3/uL (4.0-11.0)
[2016-06-30 06:24] LABS: ALBUMIN 3.2 g/dL (3.4-5.0); ALBUMIN/GLOBULIN RATIO 0.9 (1.0-1.7); ALK PHOS 70 U/L (46-116); ALT (SGPT) 16 U/L (16-63); ANION GAP 7 (6-14); AST (SGOT) 7 U/L (15-37); BLOOD UREA NITROGEN 21 mg/dL (8-26); BUN/CREATININE RATIO 16 (6-20); CALCIUM 8.6 mg/dL (8.5-10.1); CARBON DIOXIDE 31 mmol/L (21-32); CHLORIDE 109 mmol/L (98-107); CREATININE 1.3 mg/dL (0.7-1.3); GLUCOSE 97 mg/dL (70-99); POTASSIUM 3.9 mmol/L (3.5-5.1); SODIUM 147 mmol/L (136-145); TOTAL BILIRUBIN 0.3 mg/dL (0.2-1.0); TOTAL PROTEIN 6.8 g/dL (6.4-8.2); VAL ACID 60 mcg/mL (50-100)
[2016-06-30] MEDS: traZODone 50 MG TABLET. PO SCH ×4 (09:15→19:32)
[2016-06-30] MEDS: DIVALPROEX SODIUM 250 MG TABLET.DR. PO SCH ×2 (09:15→19:30)
[2016-06-30] MEDS: THIAMINE 100 MG TABLET. PO SCH ×2 (09:15→19:31)
[2016-06-30] MEDS: CYANOCOBALAMIN (VITAMIN B-12) 1,000 MCG TABLET. PO SCH (09:15)
[2016-06-30] MEDS: OMEGA-3 FATTY ACIDS/FISH OIL 1,000 MG CAPSULE. PO SCH (09:15)
[2016-06-30] MEDS: risperiDONE 0.25 MG TABLET. PO SCH ×3 (09:16→19:32)
[2016-06-30] MEDS: FINASTERIDE 5 MG TABLET PO SCH (09:16)
[2016-06-30] MEDS: ASPIRIN ENTERIC COATED 81 MG TABLET.DR. PO SCH (09:16)
[2016-06-30] MEDS: DOCUSATE SODIUM 100 MG CAPSULE PO SCH (09:16)
[2016-06-30] MEDS: DONEPEZIL HCL 10 MG TABLET PO SCH (09:16)
[2016-06-30] MEDS: MULTIVITAMIN I-VITE TABLET. PO SCH (09:16)
[2016-06-30] MEDS: ACETAMINOPHEN 325 MG TABLET PO SCH ×2 (09:16→20:14)
[2016-06-30] MEDS: MEMANTINE 10 MG TABLET. PO SCH ×2 (09:16→19:32)
[2016-06-30] MEDS: DILTIAZEM HCL 120 MG CAP.ER.24H PO SCH (09:17)
[2016-06-30] MEDS: KETOTIFEN FUMARATE 0.025% OPHT SOLUTION BOTTLE. OU SCH ×2 (09:31→19:33)
[2016-06-30] MEDS: CEFPODOXIME PROXETIL 100 MG TABLET PO SCH ×2 (12:37→19:30)
[2016-06-30 15:41] VITALS: BP 140/95
[2016-06-30] MEDS: TAMSULOSIN 0.4 MG CAP.ER.24H. PO SCH (19:32)
--- NOTE | 2016-06-30 20:58 | PDOC ---
Exam Jake Demential Exam: Jake Note: Please also refer to the separate dictated note~for this date of service dictated separately.~Patient seen individually. Discussed the patient with Nursing staff reviewed the chart.~Reviewed interim history and current functioning. Reviewed vital signs,~Labs/ Radiology~and current medications noted below. Continue current treatment with the changes noted in the dictated addendum note Assessment: Vital Signs: Vital Signs Date Time Temp Pulse Resp B/P Pulse Ox O2 Delivery O2 Flow Rate FiO2 06/30/16 15:41 97.8 89 20 140/95 98 06/30/16 06:15 Room Air I&O Intake and Output 06/30/16 07:00 Intake Total 840 ml Balance 840 ml Intake Oral 840 ml Labs: Laboratory Tests Test 06/30/16 05:59 White Blood Count 7.4x10^3/uL (4.0-11.0) Red Blood Count 4.57x10^6/uL (4.30-5.70) Hemoglobin 13.5g/dL (13.0-17.5) Hematocrit 42.0% (39.0-53.0) Mean Corpuscular Volume 92fL (79-100) Mean Corpuscular Hemoglobin 30pg (25-35) Mean Corpuscular Hemoglobin Concent 32g/dL (31-37) Red Cell Distribution Width 15.0% (11.5-14.5) H Platelet Count 131x10^3/uL (140-400) L Neutrophils (%) (Auto) 58% (31-73) Lymphocytes (%) (Auto) 25% (24-48) Monocytes (%) (Auto) 11% (0-9) H Eosinophils (%) (Auto) 6% (0-3) H Basophils (%) (Auto) 1% (0-3) Neutrophils # (Auto) 4.3x10^3uL (1.8-7.7) Lymphocytes # (Auto) 1.8x10^3/uL (1.0-4.8) Monocytes # (Auto) 0.8x10^3/uL (0.0-1.1) Eosinophils # (Auto) 0.4x10^3/uL (0.0-0.7) Basophils # (Auto) 0.1x10^3/uL (0.0-0.2) Sodium Level 147mmol/L (136-145) H Potassium Level 3.9mmol/L (3.5-5.1) Chloride Level 109mmol/L (98-107) H Carbon Dioxide Level 31mmol/L (21-32) Anion Gap 7 (6-14) Blood Urea Nitrogen 21mg/dL (8-26) Creatinine 1.3mg/dL (0.7-1.3) Estimated GFR (Cockcroft-Gault) 54.0 BUN/Creatinine Ratio 16 (6-20) Glucose Level 97mg/dL (70-99) Calcium Level 8.6mg/dL (8.5-10.1) Total Bilirubin 0.3mg/dL (0.2-1.0) Aspartate Amino Transferase (AST) 7U/L (15-37) L Alanine Aminotransferase (ALT) 16U/L (16-63) Alkaline Phosphatase 70U/L (46-116) Total Protein 6.8g/dL (6.4-8.2) Albumin 3.2g/dL (3.4-5.0) L Albumin/Globulin Ratio 0.9 (1.0-1.7) L Valproic Acid Level 60mcg/mL (50-100) Valproic Acid Last Dose Date 06/29/2016 Valproic Acid Last Dose Time 2100 Current Medications: Meds: Current Medications Acetaminophen (Tylenol) 650 mg PRN Q6HRS PRN PO PAIN / TEMP; Start 06/16/16 at 03:15; Status Cancel Multi-Ingredient Ointment (Analgesic [place]) 1 sajan PRN QID PRN TP MUSCLE PAIN Last administered on 06/26/16 21:01; Start 06/16/16 at 03:15 Al Hydroxide/Mg Hydroxide (Mylanta Plus Xs) 15 ml PRN AFTMEALHC PRN PO DYSPEPSIA; Start 06/16/16 at 03:15 Magnesium Hydroxide (Milk Of Magnesia) 2,400 mg PRN QHS PRN PO CONSTIPATION; Start 06/16/16 at 03:15 Chlorpromazine HCl (Thorazine) 12.5 mg BID PO Last administered on 06/22/16 08: 31; Start 06/16/16 at 09:00; Stop 06/22/16 at 18:21; Status DC Divalproex Sodium (Depakote Er) 375 mg BID PO Last administered on 06/17/16 09 :55; Start 06/16/16 at 09:00; Stop 06/17/16 at 15:02; Status DC Donepezil HCl (Aricept) 10 mg DAILY PO Last administered on 06/30/16 09:16; Start 06/16/16 at 09:00 Lorazepam (Ativan) 1 mg PRN Q4HRS PRN PO ANXIETY / AGITATION Last administered on 06/16/16 22:40; Start 06/16/16 at 03:45 Memantine (Namenda) 10 mg BID PO Last administered on 06/30/16 19:32; Start at 09:00 Quetiapine Fumarate (SEROquel) 50 mg DAILY PO Last administered on 06/23/16 10: 18; Start 06/16/16 at 09:00; Stop 06/23/16 at 18:50; Status DC Quetiapine Fumarate (SEROquel) 100 mg HS PO Last administered on 06/22/16 20:12 ; Start 06/16/16 at 21:00; Stop 06/23/16 at 18:50; Status DC Trazodone HCl (Desyrel) 50 mg HS PO Last administered on 06/30/16 19:32; Start 06/16/16 at 21:00 Acetaminophen (Tylenol) 650 mg BID PO Last administered on 06/30/16 20:14; Start 06/16/16 at 09:00 Acetaminophen (Tylenol) 650 mg PRN Q4HRS PRN PO Pain/Fever Last administered on 06/19/16 15:06; Start 06/16/16 at 03:45 Aspirin (Aspirin Enteric Coated) 81 mg DAILY PO Last administered on 06/30/16 09:16; Start 06/16/16 at 09:00 Cyanocobalamin (Vitamin B-12) 1,000 mcg DAILY PO Last administered on 09:15; Start 06/16/16 at 09:00 Docusate Sodium (Colace) 100 mg DAILY PO Last administered on 06/30/16 09:16; Start 06/16/16 at 09:00 Finasteride (Proscar) 5 mg DAILY PO Last administered on 06/30/16 09:16; Start 06/16/16 at 09:00 Magnesium Hydroxide (Milk Of Magnesia) 400 mg PRN DAILY PRN PO CONSTIPATION Last administered on 06/28/16 06:22; Start 06/16/16 at 03:45 Tamsulosin HCl (Flomax) 0.4 mg QHS PO Last administered on 06/30/16 19:32; Start 06/16/16 at 21:00 Diltiazem HCl (Cardizem 24hr Cd) 120 mg DAILY PO Last administered on 09:17; Start 06/16/16 at 09:00 Multivitamins/ Minerals (I-Matthew) 1 tab DAILY PO Supplement Last administered on 06/30/16 09:16; Start 06/16/16 at 09:00 Ketotifen Fumarate (Zaditor) 1 drop BID OU Last administered on 06/17/16 09:54 ; Start 06/16/16 at 09:00; Stop 06/17/16 at 15:00; Status DC Fish Oil (Fish Oil) 1,000 mg DAILY PO Supplement Last administered on 06/30/16 09:15; Start 06/16/16 at 09:00 Thiamine HCl (Vitamin B-1) 250 mg BID PO supplement Last administered on 19:31; Start 06/16/16 at 09:00 Trazodone HCl (Desyrel) 50 mg PRN QHS PRN PO insomnia Last administered on 06/19 00:02; Start 06/16/16 at 21:00 Ketotifen Fumarate (Zaditor) 1 drop BID OU Last administered on 06/30/16 19:33 ; Start 06/17/16 at 15:00 Divalproex Sodium (Depakote) 375 mg BID PO Last administered on 06/19/16 10:18 ; Start 06/17/16 at 21:00; Stop 06/19/16 at 15:14; Status DC Levothyroxine Sodium (Synthroid) 25 mcg DAILY07 PO Last administered on 05:41; Start 06/18/16 at 07:00 Vitamin D (Vitamin D3) 50,000 unit WEEKLY PO Last administered on 06/24/16 08: 53; Start 06/24/16 at 09:00 Divalproex Sodium (Depakote) 500 mg BID PO Last administered on 06/23/16 10:15 ; Start 06/19/16 at 21:00; Stop 06/23/16 at 18:51; Status DC Risperidone (Risperdal) 0.125 mg BID PO Last administered on 06/24/16 08:51; Start 06/22/16 at 21:00; Stop 06/24/16 at 18:20; Status DC Divalproex Sodium (Depakote) 625 mg BID PO Last administered on 06/27/16 07:54 ; Start 06/23/16 at 21:00; Stop 06/27/16 at 18:26; Status DC Risperidone (Risperdal) 0.125 mg TID PO Last administered on 06/30/16 19:32; Start 06/24/16 at 18:30 Trazodone HCl (Desyrel) 25 mg TID PO Last administered on 06/28/16 12:57; Start 06/24/16 at 21:00; Stop 06/28/16 at 19:29; Status DC Divalproex Sodium (Depakote) 750 mg BID PO Last administered on 06/30/16 19:30 ; Start 06/27/16 at 21:00 Trazodone HCl (Desyrel) 25 mg TID@,,17 PO Last administered on 06/30/16 16 :14; Start 06/29/16 at 09:00 Cefpodoxime Proxetil (Vantin) 200 mg BID PO Last administered on 06/30/16 19: 30; Start 06/30/16 at 12:30 Active Scripts Active Reported Acetaminophen 325 Mg Tablet 650 Mg PO BID Trazodone Hcl 50 Mg Tablet 50 Mg PO HS Thiamine Hcl 250 Mg Tablet 250 Mg PO BID Quetiapine Fumarate 50 Mg Tablet 50 Mg PO DAILY Quetiapine Fumarate 100 Mg Tablet 100 Mg PO HS Milk Of Magnesia (Magnesium Hydroxide) 400 Mg/5 Ml Oral.susp 400 Mg PO PRN DAILY PRN Pataday (Olopatadine Hcl) 2.5 Ml Drops 1 Drop OU PRN PRN Diltiazem Hcl Tablet (Diltiazem Hcl) 60 Mg Tablet 120 Mg PO DAILY Chlorpromazine Hcl 25 Mg Tablet 12.5 Mg PO BID Lorazepam 1 Mg Tablet 1 Mg PO PRN Q4HRS PRN Proscar (Finasteride) 5 Mg Tablet 5 Mg PO DAILY Flomax (Tamsulosin Hcl) 0.4 Mg Cap.er.24h 0.4 Mg PO QHS [place] 3 Fish Oil Softgel ([place]-3 Fatty Acids/Fish Oil) 1 Each Capsule.dr 1,200 Mg PO DAILY Donepezil Hcl 10 Mg Tablet 10 Mg PO DAILY Depakote Er (Divalproex Sodium) 250 Mg Tab.er.24h 375 Mg PO BID Namenda (Memantine Hcl) 10 Mg Tablet 10 Mg PO BID Tylenol (Acetaminophen) 325 Mg Tablet 650 Mg PO PRN Q4HRS PRN Vitamin B-12 (Cyanocobalamin (Vitamin B-12)) 1,000 Mcg Tablet 1,000 Mcg PO DAILY Aspirin Ec (Aspirin) 81 Mg Tablet.dr 81 Mg PO DAILY Multivitamins (Multivitamin) 1 Each Tablet 1 Tab PO DAILY Docusate Sodium 100 Mg Capsule 100 Mg PO DAILY Diagnosis: Problems: (1) Agitation (2) Anxiety disorder (3) Dementia in Alzheimer's disease with delusions (4) Dementia in Alzheimer's disease with depression (5) Dementia, vascular, with delusions (6) Dementia, vascular, with depression (7) Impulse control disorder NATASHA LAIRD MD Jun 30, 2016 20:58
--- NOTE | 2016-06-30 22:58 | PN ---
DATE: 06/29/2016 PSYCHIATRIC PROGRESS NOTE This is late entry of 06/29/2016, covers elements not covered in my initial note. SUBJECTIVE: Per nursing report, the patient remains confused. UA has been sent for culture and sensitivity. He believes he is incarcerated here, but on 06/29/2016, he was able to state that he was in the hospital as I met with him. REVIEW OF SYSTEMS: No CV, , eye, ENT, pulmonary system symptoms on review. Reliability poor. MENTAL STATUS EXAMINATION: Oriented to himself. Insight, judgment, recent and remote memory, attention, concentration, fund of knowledge poor, consistent with his diagnosis mentioned in my initial note. PLAN: Continue current psychotropics mentioned in my initial note. He seems to be responding to this. We will adjust as clinically indicated. MAN Josh LAIRD MD DR: ONEYDA/ozzie JOB#: [id number] / [id number]
[2016-07-01 05:10] VITALS: BP 121/83
[2016-07-01] MEDS: LEVOTHYROXINE 25 MCG TABLET. PO SCH (05:58)
[2016-07-01] MEDS: ACETAMINOPHEN 325 MG TABLET PO SCH ×2 (09:53→19:38)
[2016-07-01] MEDS: CEFPODOXIME PROXETIL 100 MG TABLET PO SCH ×2 (09:54→19:37)
[2016-07-01] MEDS: DIVALPROEX SODIUM 250 MG TABLET.DR. PO SCH ×2 (09:54→19:38)
[2016-07-01] MEDS: THIAMINE 100 MG TABLET. PO SCH ×2 (09:57→19:36)
[2016-07-01] MEDS: FINASTERIDE 5 MG TABLET PO SCH (09:57)
[2016-07-01] MEDS: DILTIAZEM HCL 120 MG CAP.ER.24H PO SCH (09:57)
[2016-07-01] MEDS: DOCUSATE SODIUM 100 MG CAPSULE PO SCH (09:57)
[2016-07-01] MEDS: CYANOCOBALAMIN (VITAMIN B-12) 1,000 MCG TABLET. PO SCH (09:57)
[2016-07-01] MEDS: MULTIVITAMIN I-VITE TABLET. PO SCH (09:57)
[2016-07-01] MEDS: DONEPEZIL HCL 10 MG TABLET PO SCH (09:58)
[2016-07-01] MEDS: ASPIRIN ENTERIC COATED 81 MG TABLET.DR. PO SCH (09:58)
[2016-07-01] MEDS: MEMANTINE 10 MG TABLET. PO SCH ×2 (09:58→19:37)
[2016-07-01] MEDS: CHOLECALCIFEROL (VITAMIN D3) 50,000 UNIT CAPSULE PO SCH (09:58)
[2016-07-01] MEDS: OMEGA-3 FATTY ACIDS/FISH OIL 1,000 MG CAPSULE. PO SCH (09:58)
[2016-07-01] MEDS: risperiDONE 0.25 MG TABLET. PO SCH ×3 (09:58→19:37)
[2016-07-01] MEDS: traZODone 50 MG TABLET. PO SCH ×4 (10:00→19:38)
[2016-07-01] MEDS: KETOTIFEN FUMARATE 0.025% OPHT SOLUTION BOTTLE. OU SCH ×2 (10:06→19:38)
[2016-07-01 15:36] VITALS: BP 130/79
[2016-07-01] MEDS: TAMSULOSIN 0.4 MG CAP.ER.24H. PO SCH (19:36)
--- NOTE | 2016-07-01 21:01 | PDOC ---
Exam Jake Demential Exam: Jake Note: Please also refer to the separate dictated note~for this date of service dictated separately.~Patient seen individually. Discussed the patient with Nursing staff reviewed the chart.~Reviewed interim history and current functioning. Reviewed vital signs,~Labs/ Radiology~and current medications noted below. Continue current treatment with the changes noted in the dictated addendum note Assessment: Vital Signs: Vital Signs Date Time Temp Pulse Resp B/P Pulse Ox O2 Delivery O2 Flow Rate FiO2 07/01/16 15:36 97.8 73 130/79 98 07/01/16 05:10 18 06/30/16 06:15 Room Air I&O Intake and Output 07/01/16 07:00 Intake Total 720 ml Balance 720 ml Intake Oral 720 ml Current Medications: Meds: Current Medications Acetaminophen (Tylenol) 650 mg PRN Q6HRS PRN PO PAIN / TEMP; Start 06/16/16 at 03:15; Status Cancel Multi-Ingredient Ointment (Analgesic [place]) 1 sajan PRN QID PRN TP MUSCLE PAIN Last administered on 06/26/16 21:01; Start 06/16/16 at 03:15 Al Hydroxide/Mg Hydroxide (Mylanta Plus Xs) 15 ml PRN AFTMEALHC PRN PO DYSPEPSIA; Start 06/16/16 at 03:15 Magnesium Hydroxide (Milk Of Magnesia) 2,400 mg PRN QHS PRN PO CONSTIPATION; Start 06/16/16 at 03:15 Chlorpromazine HCl (Thorazine) 12.5 mg BID PO Last administered on 06/22/16 08: 31; Start 06/16/16 at 09:00; Stop 06/22/16 at 18:21; Status DC Divalproex Sodium (Depakote Er) 375 mg BID PO Last administered on 06/17/16 09 :55; Start 06/16/16 at 09:00; Stop 06/17/16 at 15:02; Status DC Donepezil HCl (Aricept) 10 mg DAILY PO Last administered on 07/01/16 09:58; Start 06/16/16 at 09:00 Lorazepam (Ativan) 1 mg PRN Q4HRS PRN PO ANXIETY / AGITATION Last administered on 06/16/16 22:40; Start 06/16/16 at 03:45 Memantine (Namenda) 10 mg BID PO Last administered on 07/01/16 19:37; Start at 09:00 Quetiapine Fumarate (SEROquel) 50 mg DAILY PO Last administered on 06/23/16 10: 18; Start 06/16/16 at 09:00; Stop 06/23/16 at 18:50; Status DC Quetiapine Fumarate (SEROquel) 100 mg HS PO Last administered on 06/22/16 20:12 ; Start 06/16/16 at 21:00; Stop 06/23/16 at 18:50; Status DC Trazodone HCl (Desyrel) 50 mg HS PO Last administered on 07/01/16 19:38; Start 06/16/16 at 21:00 Acetaminophen (Tylenol) 650 mg BID PO Last administered on 07/01/16 19:38; Start 06/16/16 at 09:00 Acetaminophen (Tylenol) 650 mg PRN Q4HRS PRN PO Pain/Fever Last administered on 06/19/16 15:06; Start 06/16/16 at 03:45 Aspirin (Aspirin Enteric Coated) 81 mg DAILY PO Last administered on 07/01/16 09:58; Start 06/16/16 at 09:00 Cyanocobalamin (Vitamin B-12) 1,000 mcg DAILY PO Last administered on 09:57; Start 06/16/16 at 09:00 Docusate Sodium (Colace) 100 mg DAILY PO Last administered on 07/01/16 09:57; Start 06/16/16 at 09:00 Finasteride (Proscar) 5 mg DAILY PO Last administered on 07/01/16 09:57; Start 06/16/16 at 09:00 Magnesium Hydroxide (Milk Of Magnesia) 400 mg PRN DAILY PRN PO CONSTIPATION Last administered on 06/28/16 06:22; Start 06/16/16 at 03:45 Tamsulosin HCl (Flomax) 0.4 mg QHS PO Last administered on 07/01/16 19:36; Start 06/16/16 at 21:00 Diltiazem HCl (Cardizem 24hr Cd) 120 mg DAILY PO Last administered on 09:57; Start 06/16/16 at 09:00 Multivitamins/ Minerals (I-Matthew) 1 tab DAILY PO Supplement Last administered on 07/01/16 09:57; Start 06/16/16 at 09:00 Ketotifen Fumarate (Zaditor) 1 drop BID OU Last administered on 06/17/16 09:54 ; Start 06/16/16 at 09:00; Stop 06/17/16 at 15:00; Status DC Fish Oil (Fish Oil) 1,000 mg DAILY PO Supplement Last administered on 07/01/16 09:58; Start 06/16/16 at 09:00 Thiamine HCl (Vitamin B-1) 250 mg BID PO supplement Last administered on 19:36; Start 06/16/16 at 09:00 Trazodone HCl (Desyrel) 50 mg PRN QHS PRN PO insomnia Last administered on 06/19 00:02; Start 06/16/16 at 21:00 Ketotifen Fumarate (Zaditor) 1 drop BID OU Last administered on 07/01/16 19:38 ; Start 06/17/16 at 15:00 Divalproex Sodium (Depakote) 375 mg BID PO Last administered on 06/19/16 10:18 ; Start 06/17/16 at 21:00; Stop 06/19/16 at 15:14; Status DC Levothyroxine Sodium (Synthroid) 25 mcg DAILY07 PO Last administered on 05:58; Start 06/18/16 at 07:00 Vitamin D (Vitamin D3) 50,000 unit WEEKLY PO Last administered on 07/01/16 09: 58; Start 06/24/16 at 09:00 Divalproex Sodium (Depakote) 500 mg BID PO Last administered on 06/23/16 10:15 ; Start 06/19/16 at 21:00; Stop 06/23/16 at 18:51; Status DC Risperidone (Risperdal) 0.125 mg BID PO Last administered on 06/24/16 08:51; Start 06/22/16 at 21:00; Stop 06/24/16 at 18:20; Status DC Divalproex Sodium (Depakote) 625 mg BID PO Last administered on 06/27/16 07:54 ; Start 06/23/16 at 21:00; Stop 06/27/16 at 18:26; Status DC Risperidone (Risperdal) 0.125 mg TID PO Last administered on 07/01/16 19:37; Start 06/24/16 at 18:30 Trazodone HCl (Desyrel) 25 mg TID PO Last administered on 06/28/16 12:57; Start 06/24/16 at 21:00; Stop 06/28/16 at 19:29; Status DC Divalproex Sodium (Depakote) 750 mg BID PO Last administered on 07/01/16 19:38 ; Start 06/27/16 at 21:00 Trazodone HCl (Desyrel) 25 mg TID@,,17 PO Last administered on 07/01/16 17 :09; Start 06/29/16 at 09:00 Cefpodoxime Proxetil (Vantin) 200 mg BID PO Last administered on 07/01/16 19: 37; Start 06/30/16 at 12:30 Active Scripts Active Reported Acetaminophen 325 Mg Tablet 650 Mg PO BID Trazodone Hcl 50 Mg Tablet 50 Mg PO HS Thiamine Hcl 250 Mg Tablet 250 Mg PO BID Quetiapine Fumarate 50 Mg Tablet 50 Mg PO DAILY Quetiapine Fumarate 100 Mg Tablet 100 Mg PO HS Milk Of Magnesia (Magnesium Hydroxide) 400 Mg/5 Ml Oral.susp 400 Mg PO PRN DAILY PRN Pataday (Olopatadine Hcl) 2.5 Ml Drops 1 Drop OU PRN PRN Diltiazem Hcl Tablet (Diltiazem Hcl) 60 Mg Tablet 120 Mg PO DAILY Chlorpromazine Hcl 25 Mg Tablet 12.5 Mg PO BID Lorazepam 1 Mg Tablet 1 Mg PO PRN Q4HRS PRN Proscar (Finasteride) 5 Mg Tablet 5 Mg PO DAILY Flomax (Tamsulosin Hcl) 0.4 Mg Cap.er.24h 0.4 Mg PO QHS [place] 3 Fish Oil Softgel ([place]-3 Fatty Acids/Fish Oil) 1 Each Capsule.dr 1,200 Mg PO DAILY Donepezil Hcl 10 Mg Tablet 10 Mg PO DAILY Depakote Er (Divalproex Sodium) 250 Mg Tab.er.24h 375 Mg PO BID Namenda (Memantine Hcl) 10 Mg Tablet 10 Mg PO BID Tylenol (Acetaminophen) 325 Mg Tablet 650 Mg PO PRN Q4HRS PRN Vitamin B-12 (Cyanocobalamin (Vitamin B-12)) 1,000 Mcg Tablet 1,000 Mcg PO DAILY Aspirin Ec (Aspirin) 81 Mg Tablet.dr 81 Mg PO DAILY Multivitamins (Multivitamin) 1 Each Tablet 1 Tab PO DAILY Docusate Sodium 100 Mg Capsule 100 Mg PO DAILY Diagnosis: Problems: (1) Agitation (2) Anxiety disorder (3) Dementia in Alzheimer's disease with delusions (4) Dementia in Alzheimer's disease with depression (5) Dementia, vascular, with delusions (6) Dementia, vascular, with depression (7) Impulse control disorder NATASHA LAIRD MD Jul 01, 2016 21:01
--- NOTE | 2016-07-01 22:02 | PN ---
DATE: 06/30/2016 PSYCHIATRIC PROGRESS NOTE This is late entry of 06/30/2016, covers elements not covered in my initial note. SUBJECTIVE: The patient remains confused. He has been sleeping all day, does have a UTI, somewhat dehydrated, sodium 147, fluids are being pushed. No behaviors or aggression noted. Compliant with his medications. REVIEW OF SYSTEMS: No CV, , pulmonary, eye, ENT system symptoms on review. Reliability poor. MENTAL STATUS EXAMINATION: Oriented to himself. Insight, judgment, recent and remote memory, attention, concentration, fund of knowledge poor, consistent with his diagnosis mentioned in my initial note. LABORATORY DATA: Valproic acid level is 60. PLAN: Continue psychotropics mentioned in my initial note. Defer medical management to Dr. Vyas. Adjust further as clinically indicated. MAN Josh LAIRD MD DR: ONEYDA/ozzie JOB#: [id number] / [id number]
[2016-07-02 05:38] VITALS: BP 121/71
[2016-07-02] MEDS: LEVOTHYROXINE 25 MCG TABLET. PO SCH (05:58)
[2016-07-02] MEDS: DONEPEZIL HCL 10 MG TABLET PO SCH (08:49)
[2016-07-02] MEDS: risperiDONE 0.25 MG TABLET. PO SCH ×3 (08:49→20:01)
[2016-07-02] MEDS: FINASTERIDE 5 MG TABLET PO SCH (08:49)
[2016-07-02] MEDS: DOCUSATE SODIUM 100 MG CAPSULE PO SCH (08:49)
[2016-07-02] MEDS: MULTIVITAMIN I-VITE TABLET. PO SCH (08:49)
[2016-07-02] MEDS: MEMANTINE 10 MG TABLET. PO SCH ×2 (08:49→20:01)
[2016-07-02] MEDS: DILTIAZEM HCL 120 MG CAP.ER.24H PO SCH (08:50)
[2016-07-02] MEDS: OMEGA-3 FATTY ACIDS/FISH OIL 1,000 MG CAPSULE. PO SCH (08:50)
[2016-07-02] MEDS: ACETAMINOPHEN 325 MG TABLET PO SCH ×3 (08:50→21:42)
[2016-07-02] MEDS: traZODone 50 MG TABLET. PO SCH ×4 (08:50→20:00)
[2016-07-02] MEDS: CEFPODOXIME PROXETIL 100 MG TABLET PO SCH (08:50)
[2016-07-02] MEDS: CYANOCOBALAMIN (VITAMIN B-12) 1,000 MCG TABLET. PO SCH (08:50)
[2016-07-02] MEDS: ASPIRIN ENTERIC COATED 81 MG TABLET.DR. PO SCH (08:50)
[2016-07-02] MEDS: THIAMINE 100 MG TABLET. PO SCH ×2 (08:50→20:03)
[2016-07-02] MEDS: DIVALPROEX SODIUM 250 MG TABLET.DR. PO SCH ×2 (08:51→20:00)
[2016-07-02] MEDS: KETOTIFEN FUMARATE 0.025% OPHT SOLUTION BOTTLE. OU SCH ×2 (08:51→20:00)
[2016-07-02 15:36] VITALS: BP 126/76
[2016-07-02] MEDS: TAMSULOSIN 0.4 MG CAP.ER.24H. PO SCH (20:01)
[2016-07-02] MEDS: DOXYCYCLINE HYCLATE 100 MG TABLET PO SCH (20:03)
--- NOTE | 2016-07-02 21:03 | PDOC ---
Exam Jake Demential Exam: Jake Note: Please also refer to the separate dictated note~for this date of service dictated separately.~Patient seen individually. Discussed the patient with Nursing staff reviewed the chart.~Reviewed interim history and current functioning. Reviewed vital signs,~Labs/ Radiology~and current medications noted below. Continue current treatment with the changes noted in the dictated addendum note Assessment: Vital Signs: Vital Signs Date Time Temp Pulse Resp B/P Pulse Ox O2 Delivery O2 Flow Rate FiO2 07/02/16 15:36 97.5 78 20 126/76 96 06/30/16 06:15 Room Air I&O Intake and Output 07/02/16 07:00 Intake Total 1320 ml Balance 1320 ml Intake Oral 1320 ml # Voids 3 # Bowel Movements 1 Current Medications: Meds: Current Medications Acetaminophen (Tylenol) 650 mg PRN Q6HRS PRN PO PAIN / TEMP; Start 06/16/16 at 03:15; Status Cancel Multi-Ingredient Ointment (Analgesic [place]) 1 sajan PRN QID PRN TP MUSCLE PAIN Last administered on 06/26/16 21:01; Start 06/16/16 at 03:15 Al Hydroxide/Mg Hydroxide (Mylanta Plus Xs) 15 ml PRN AFTMEALHC PRN PO DYSPEPSIA; Start 06/16/16 at 03:15 Magnesium Hydroxide (Milk Of Magnesia) 2,400 mg PRN QHS PRN PO CONSTIPATION; Start 06/16/16 at 03:15 Chlorpromazine HCl (Thorazine) 12.5 mg BID PO Last administered on 06/22/16 08: 31; Start 06/16/16 at 09:00; Stop 06/22/16 at 18:21; Status DC Divalproex Sodium (Depakote Er) 375 mg BID PO Last administered on 06/17/16 09 :55; Start 06/16/16 at 09:00; Stop 06/17/16 at 15:02; Status DC Donepezil HCl (Aricept) 10 mg DAILY PO Last administered on 07/02/16 08:49; Start 06/16/16 at 09:00 Lorazepam (Ativan) 1 mg PRN Q4HRS PRN PO ANXIETY / AGITATION Last administered on 06/16/16 22:40; Start 06/16/16 at 03:45 Memantine (Namenda) 10 mg BID PO Last administered on 07/02/16 20:01; Start at 09:00 Quetiapine Fumarate (SEROquel) 50 mg DAILY PO Last administered on 06/23/16 10: 18; Start 06/16/16 at 09:00; Stop 06/23/16 at 18:50; Status DC Quetiapine Fumarate (SEROquel) 100 mg HS PO Last administered on 06/22/16 20:12 ; Start 06/16/16 at 21:00; Stop 06/23/16 at 18:50; Status DC Trazodone HCl (Desyrel) 50 mg HS PO Last administered on 07/02/16 20:00; Start 06/16/16 at 21:00 Acetaminophen (Tylenol) 650 mg BID PO Last administered on 07/02/16 20:02; Start 06/16/16 at 09:00 Acetaminophen (Tylenol) 650 mg PRN Q4HRS PRN PO Pain/Fever Last administered on 06/19/16 15:06; Start 06/16/16 at 03:45 Aspirin (Aspirin Enteric Coated) 81 mg DAILY PO Last administered on 07/02/16 08:50; Start 06/16/16 at 09:00 Cyanocobalamin (Vitamin B-12) 1,000 mcg DAILY PO Last administered on 08:50; Start 06/16/16 at 09:00 Docusate Sodium (Colace) 100 mg DAILY PO Last administered on 07/02/16 08:49; Start 06/16/16 at 09:00 Finasteride (Proscar) 5 mg DAILY PO Last administered on 07/02/16 08:49; Start 06/16/16 at 09:00 Magnesium Hydroxide (Milk Of Magnesia) 400 mg PRN DAILY PRN PO CONSTIPATION Last administered on 06/28/16 06:22; Start 06/16/16 at 03:45 Tamsulosin HCl (Flomax) 0.4 mg QHS PO Last administered on 07/02/16 20:01; Start 06/16/16 at 21:00 Diltiazem HCl (Cardizem 24hr Cd) 120 mg DAILY PO Last administered on 08:50; Start 06/16/16 at 09:00 Multivitamins/ Minerals (I-Matthew) 1 tab DAILY PO Supplement Last administered on 07/02/16 08:49; Start 06/16/16 at 09:00 Ketotifen Fumarate (Zaditor) 1 drop BID OU Last administered on 06/17/16 09:54 ; Start 06/16/16 at 09:00; Stop 06/17/16 at 15:00; Status DC Fish Oil (Fish Oil) 1,000 mg DAILY PO Supplement Last administered on 07/02/16 08:50; Start 06/16/16 at 09:00 Thiamine HCl (Vitamin B-1) 250 mg BID PO supplement Last administered on 20:03; Start 06/16/16 at 09:00 Trazodone HCl (Desyrel) 50 mg PRN QHS PRN PO insomnia Last administered on 06/19 00:02; Start 06/16/16 at 21:00 Ketotifen Fumarate (Zaditor) 1 drop BID OU Last administered on 07/02/16 20:00 ; Start 06/17/16 at 15:00 Divalproex Sodium (Depakote) 375 mg BID PO Last administered on 06/19/16 10:18 ; Start 06/17/16 at 21:00; Stop 06/19/16 at 15:14; Status DC Levothyroxine Sodium (Synthroid) 25 mcg DAILY07 PO Last administered on 05:58; Start 06/18/16 at 07:00 Vitamin D (Vitamin D3) 50,000 unit WEEKLY PO Last administered on 07/01/16 09: 58; Start 06/24/16 at 09:00 Divalproex Sodium (Depakote) 500 mg BID PO Last administered on 06/23/16 10:15 ; Start 06/19/16 at 21:00; Stop 06/23/16 at 18:51; Status DC Risperidone (Risperdal) 0.125 mg BID PO Last administered on 06/24/16 08:51; Start 06/22/16 at 21:00; Stop 06/24/16 at 18:20; Status DC Divalproex Sodium (Depakote) 625 mg BID PO Last administered on 06/27/16 07:54 ; Start 06/23/16 at 21:00; Stop 06/27/16 at 18:26; Status DC Risperidone (Risperdal) 0.125 mg TID PO Last administered on 07/02/16 20:01; Start 06/24/16 at 18:30 Trazodone HCl (Desyrel) 25 mg TID PO Last administered on 06/28/16 12:57; Start 06/24/16 at 21:00; Stop 06/28/16 at 19:29; Status DC Divalproex Sodium (Depakote) 750 mg BID PO Last administered on 07/02/16 20:00 ; Start 06/27/16 at 21:00 Trazodone HCl (Desyrel) 25 mg TID@ PO Last administered on 07/02/16 17 :35; Start 06/29/16 at 09:00 Cefpodoxime Proxetil (Vantin) 200 mg BID PO Last administered on 07/02/16 08: 50; Start 06/30/16 at 12:30; Stop 07/02/16 at 17:27; Status DC Doxycycline Hyclate (Vibra-Tab) 100 mg BID PO Last administered on 07/02/16 20 :03; Start 07/02/16 at 21:00 Lidocaine (Lidoderm) 1 patch DAILY TD ; Start 07/03/16 at 09:00 Active Scripts Active Reported Acetaminophen 325 Mg Tablet 650 Mg PO BID Trazodone Hcl 50 Mg Tablet 50 Mg PO HS Thiamine Hcl 250 Mg Tablet 250 Mg PO BID Quetiapine Fumarate 50 Mg Tablet 50 Mg PO DAILY Quetiapine Fumarate 100 Mg Tablet 100 Mg PO HS Milk Of Magnesia (Magnesium Hydroxide) 400 Mg/5 Ml Oral.susp 400 Mg PO PRN DAILY PRN Pataday (Olopatadine Hcl) 2.5 Ml Drops 1 Drop OU PRN PRN Diltiazem Hcl Tablet (Diltiazem Hcl) 60 Mg Tablet 120 Mg PO DAILY Chlorpromazine Hcl 25 Mg Tablet 12.5 Mg PO BID Lorazepam 1 Mg Tablet 1 Mg PO PRN Q4HRS PRN Proscar (Finasteride) 5 Mg Tablet 5 Mg PO DAILY Flomax (Tamsulosin Hcl) 0.4 Mg Cap.er.24h 0.4 Mg PO QHS [place] 3 Fish Oil Softgel ([place]-3 Fatty Acids/Fish Oil) 1 Each Capsule.dr 1,200 Mg PO DAILY Donepezil Hcl 10 Mg Tablet 10 Mg PO DAILY Depakote Er (Divalproex Sodium) 250 Mg Tab.er.24h 375 Mg PO BID Namenda (Memantine Hcl) 10 Mg Tablet 10 Mg PO BID Tylenol (Acetaminophen) 325 Mg Tablet 650 Mg PO PRN Q4HRS PRN Vitamin B-12 (Cyanocobalamin (Vitamin B-12)) 1,000 Mcg Tablet 1,000 Mcg PO DAILY Aspirin Ec (Aspirin) 81 Mg Tablet.dr 81 Mg PO DAILY Multivitamins (Multivitamin) 1 Each Tablet 1 Tab PO DAILY Docusate Sodium 100 Mg Capsule 100 Mg PO DAILY Diagnosis: Problems: (1) Agitation (2) Anxiety disorder (3) Dementia in Alzheimer's disease with delusions (4) Dementia in Alzheimer's disease with depression (5) Dementia, vascular, with delusions (6) Dementia, vascular, with depression (7) Impulse control disorder NATASHA LAIRD MD Jul 02, 2016 21:03
[2016-07-03] MEDS: LEVOTHYROXINE 25 MCG TABLET. PO SCH (06:01)
[2016-07-03 06:30] VITALS: BP 151/95
[2016-07-03 06:57] LABS: BASO # 0.1 x10^3/uL (0.0-0.2); BASO % 1 % (0-3); EOS # 0.4 x10^3/uL (0.0-0.7); EOS % 5 % (0-3); HEMATOCRIT 42.1 % (39.0-53.0); HEMOGLOBIN 13.3 g/dL (13.0-17.5); LYMPH # 1.8 x10^3/uL (1.0-4.8); LYMPH % 25 % (24-48); MEAN CORPUSCULAR HEMOGLOBIN 29 pg (25-35); MEAN CORPUSCULAR HGB CONC 32 g/dL (31-37); MEAN CORPUSCULAR VOLUME 92 fL (79-100); MONO # 0.7 x10^3/uL (0.0-1.1); MONO % 10 % (0-9); NEUT # 4.5 x10^3uL (1.8-7.7); NEUT % 60 % (31-73); PLATELET COUNT 109 x10^3/uL (140-400); RED BLOOD COUNT 4.58 x10^6/uL (4.30-5.70); RED CELL DISTRIBUTION WIDTH 14.8 % (11.5-14.5); WHITE BLOOD COUNT 7.5 x10^3/uL (4.0-11.0)
[2016-07-03 07:08] LABS: ALBUMIN/GLOBULIN RATIO 0.9 (1.0-1.7); C REACTIVE PROTEIN 0.9 mg/L (0-3.3); CALCIUM 8.3 mg/dL (8.5-10.1); CREATININE 1.2 mg/dL (0.7-1.3); GFR 59.2; MAGNESIUM 2.2 mg/dL (1.8-2.4); POTASSIUM 3.9 mmol/L (3.5-5.1); TOTAL BILIRUBIN 0.4 mg/dL (0.2-1.0); TOTAL PROTEIN 6.5 g/dL (6.4-8.2)
[2016-07-03 08:05] LABS: SEDIMENTATION RATE 0 (0-15)
[2016-07-03] MEDS: THIAMINE 100 MG TABLET. PO SCH ×2 (08:55→20:36)
[2016-07-03] MEDS: DIVALPROEX SODIUM 250 MG TABLET.DR. PO SCH ×2 (08:55→20:36)
[2016-07-03] MEDS: DOCUSATE SODIUM 100 MG CAPSULE PO SCH (08:55)
[2016-07-03] MEDS: ASPIRIN ENTERIC COATED 81 MG TABLET.DR. PO SCH (08:55)
[2016-07-03] MEDS: CYANOCOBALAMIN (VITAMIN B-12) 1,000 MCG TABLET. PO SCH (08:55)
[2016-07-03] MEDS: DILTIAZEM HCL 120 MG CAP.ER.24H PO SCH (08:55)
[2016-07-03] MEDS: MEMANTINE 10 MG TABLET. PO SCH ×2 (08:55→20:36)
[2016-07-03] MEDS: risperiDONE 0.25 MG TABLET. PO SCH ×3 (08:56→20:37)
[2016-07-03] MEDS: MULTIVITAMIN I-VITE TABLET. PO SCH (08:56)
[2016-07-03] MEDS: OMEGA-3 FATTY ACIDS/FISH OIL 1,000 MG CAPSULE. PO SCH (08:56)
[2016-07-03] MEDS: FINASTERIDE 5 MG TABLET PO SCH (08:56)
[2016-07-03] MEDS: traZODone 50 MG TABLET. PO SCH ×4 (08:56→20:37)
[2016-07-03] MEDS: DONEPEZIL HCL 10 MG TABLET PO SCH (08:56)
[2016-07-03] MEDS: ACETAMINOPHEN 325 MG TABLET PO SCH (08:56)
[2016-07-03] MEDS: DOXYCYCLINE HYCLATE 100 MG TABLET PO SCH ×2 (08:56→20:36)
[2016-07-03] MEDS: KETOTIFEN FUMARATE 0.025% OPHT SOLUTION BOTTLE. OU SCH ×2 (08:58→20:38)
[2016-07-03] MEDS: LIDOCAINE (700MG/PATCH) PATCH. TD SCH (08:58)
--- NOTE | 2016-07-03 14:28 | RAD ---
CT scan of the lumbar spine without contrast 07/03/2016 Clinical history: Low back pain. Technique: Unenhanced, contiguous, 0.625 mm axial sections were obtained through the lumbar spine. 3 mm reconstructed sagittal, axial and coronal images were obtained. One or more of the following individualized dose reduction techniques were utilized for this study: 1. Automated exposure control. 2. Adjustment of the mA and/or kV according to patient size. 3. Use of iterative reconstruction technique. Findings: Sagittal and coronal reconstructed images demonstrate minimal S shaped curvature of the thoracolumbar spine. Degenerative changes consisting of varying degrees of disc space narrowing, vertebral endplate sclerosis and mild to moderate anterior vertebral body osteophyte formation are seen throughout the lumbar disc spaces. Atherosclerotic calcification of the abdominal aorta and its branches is noted. Several nonobstructing calculi are seen scattered throughout both kidneys, right greater than left. These measure 3 mm to 5 mm in size. Low-attenuation lesions are seen involving both kidneys which measure 1.9 to 2.5 cm in size. They likely represent cysts. No fracture or subluxation of the lumbar vertebrae is seen. The changes of degenerative disc disease are seen throughout the lumbar spine. These consist of mild to moderate generalized disc bulges, degenerative changes involving the facet joints and mild to moderate ligamentum flavum hypertrophy. A superimposed focal central disc osteophyte complex is seen at L3-4 which measures 3.5 mm in AP diameter These findings when combined result in mild central spinal canal stenosis at L3-4 and L4-5. Moderate right neural foraminal stenosis is seen at L3-4. Mild to moderate right greater than left neural foraminal stenosis is seen at L4-5. Mild to moderate bilateral neural foraminal stenosis is seen L5-S1. Impression: The changes of degenerative disc disease are seen throughout the lumbar spine. These findings result in mild central spinal canal stenosis at L3-4 and L4-5. Multilevel neural foraminal stenosis is seen as outlined above. No acute osseous abnormality is seen.
[2016-07-03 15:52] VITALS: BP 138/78
--- NOTE | 2016-07-03 20:04 | PDOC ---
Exam Jake Demential Exam: Jake Note: Please also refer to the separate dictated note~for this date of service dictated separately.~Patient seen individually. Discussed the patient with Nursing staff reviewed the chart.~Reviewed interim history and current functioning. Reviewed vital signs,~Labs/ Radiology~and current medications noted below. Continue current treatment with the changes noted in the dictated addendum note Assessment: Vital Signs: Vital Signs Date Time Temp Pulse Resp B/P Pulse Ox O2 Delivery O2 Flow Rate FiO2 07/03/16 15:52 97.0 87 17 138/78 98 06/30/16 06:15 Room Air I&O Intake and Output 07/03/16 07:00 Intake Total 1080 ml Balance 1080 ml Intake Oral 1080 ml Labs: Laboratory Tests Test 07/03/16 06:45 White Blood Count 7.5x10^3/uL (4.0-11.0) Red Blood Count 4.58x10^6/uL (4.30-5.70) Hemoglobin 13.3g/dL (13.0-17.5) Hematocrit 42.1% (39.0-53.0) Mean Corpuscular Volume 92fL (79-100) Mean Corpuscular Hemoglobin 29pg (25-35) Mean Corpuscular Hemoglobin Concent 32g/dL (31-37) Red Cell Distribution Width 14.8% (11.5-14.5) H Platelet Count 109x10^3/uL (140-400) L Neutrophils (%) (Auto) 60% (31-73) Lymphocytes (%) (Auto) 25% (24-48) Monocytes (%) (Auto) 10% (0-9) H Eosinophils (%) (Auto) 5% (0-3) H Basophils (%) (Auto) 1% (0-3) Neutrophils # (Auto) 4.5x10^3uL (1.8-7.7) Lymphocytes # (Auto) 1.8x10^3/uL (1.0-4.8) Monocytes # (Auto) 0.7x10^3/uL (0.0-1.1) Eosinophils # (Auto) 0.4x10^3/uL (0.0-0.7) Basophils # (Auto) 0.1x10^3/uL (0.0-0.2) Erythrocyte Sedimentation Rate 0 (0-15) Sodium Level 144mmol/L (136-145) Potassium Level 3.9mmol/L (3.5-5.1) Chloride Level 109mmol/L (98-107) H Carbon Dioxide Level 31mmol/L (21-32) Anion Gap 4 (6-14) L Blood Urea Nitrogen 19mg/dL (8-26) Creatinine 1.2mg/dL (0.7-1.3) Estimated GFR (Cockcroft-Gault) 59.2 BUN/Creatinine Ratio 16 (6-20) Glucose Level 85mg/dL (70-99) Calcium Level 8.3mg/dL (8.5-10.1) L Magnesium Level 2.2mg/dL (1.8-2.4) Total Bilirubin 0.4mg/dL (0.2-1.0) Aspartate Amino Transferase (AST) 7U/L (15-37) L Alanine Aminotransferase (ALT) 17U/L (16-63) Alkaline Phosphatase 68U/L (46-116) C-Reactive Protein 0.9mg/L (0-3.3) Total Protein 6.5g/dL (6.4-8.2) Albumin 3.0g/dL (3.4-5.0) L Albumin/Globulin Ratio 0.9 (1.0-1.7) L Current Medications: Meds: Current Medications Acetaminophen (Tylenol) 650 mg PRN Q6HRS PRN PO PAIN / TEMP; Start 06/16/16 at 03:15; Status Cancel Multi-Ingredient Ointment (Analgesic [place]) 1 sajan PRN QID PRN TP MUSCLE PAIN Last administered on 06/26/16 21:01; Start 06/16/16 at 03:15 Al Hydroxide/Mg Hydroxide (Mylanta Plus Xs) 15 ml PRN AFTMEALHC PRN PO DYSPEPSIA; Start 06/16/16 at 03:15 Magnesium Hydroxide (Milk Of Magnesia) 2,400 mg PRN QHS PRN PO CONSTIPATION; Start 06/16/16 at 03:15 Chlorpromazine HCl (Thorazine) 12.5 mg BID PO Last administered on 06/22/16 08: 31; Start 06/16/16 at 09:00; Stop 06/22/16 at 18:21; Status DC Divalproex Sodium (Depakote Er) 375 mg BID PO Last administered on 06/17/16 09 :55; Start 06/16/16 at 09:00; Stop 06/17/16 at 15:02; Status DC Donepezil HCl (Aricept) 10 mg DAILY PO Last administered on 07/03/16 08:56; Start 06/16/16 at 09:00 Lorazepam (Ativan) 1 mg PRN Q4HRS PRN PO ANXIETY / AGITATION Last administered on 06/16/16 22:40; Start 06/16/16 at 03:45 Memantine (Namenda) 10 mg BID PO Last administered on 07/03/16 08:55; Start at 09:00 Quetiapine Fumarate (SEROquel) 50 mg DAILY PO Last administered on 06/23/16 10: 18; Start 06/16/16 at 09:00; Stop 06/23/16 at 18:50; Status DC Quetiapine Fumarate (SEROquel) 100 mg HS PO Last administered on 06/22/16 20:12 ; Start 06/16/16 at 21:00; Stop 06/23/16 at 18:50; Status DC Trazodone HCl (Desyrel) 50 mg HS PO Last administered on 07/02/16 20:00; Start 06/16/16 at 21:00 Acetaminophen (Tylenol) 650 mg BID PO Last administered on 07/03/16 08:56; Start 06/16/16 at 09:00 Acetaminophen (Tylenol) 650 mg PRN Q4HRS PRN PO Pain/Fever Last administered on 06/19/16 15:06; Start 06/16/16 at 03:45 Aspirin (Aspirin Enteric Coated) 81 mg DAILY PO Last administered on 07/03/16 08:55; Start 06/16/16 at 09:00 Cyanocobalamin (Vitamin B-12) 1,000 mcg DAILY PO Last administered on 08:55; Start 06/16/16 at 09:00 Docusate Sodium (Colace) 100 mg DAILY PO Last administered on 07/03/16 08:55; Start 06/16/16 at 09:00 Finasteride (Proscar) 5 mg DAILY PO Last administered on 07/03/16 08:56; Start 06/16/16 at 09:00 Magnesium Hydroxide (Milk Of Magnesia) 400 mg PRN DAILY PRN PO CONSTIPATION Last administered on 06/28/16 06:22; Start 06/16/16 at 03:45 Tamsulosin HCl (Flomax) 0.4 mg QHS PO Last administered on 07/02/16 20:01; Start 06/16/16 at 21:00 Diltiazem HCl (Cardizem 24hr Cd) 120 mg DAILY PO Last administered on 08:55; Start 06/16/16 at 09:00 Multivitamins/ Minerals (I-Matthew) 1 tab DAILY PO Supplement Last administered on 07/03/16 08:56; Start 06/16/16 at 09:00 Ketotifen Fumarate (Zaditor) 1 drop BID OU Last administered on 06/17/16 09:54 ; Start 06/16/16 at 09:00; Stop 06/17/16 at 15:00; Status DC Fish Oil (Fish Oil) 1,000 mg DAILY PO Supplement Last administered on 07/03/16 08:56; Start 06/16/16 at 09:00 Thiamine HCl (Vitamin B-1) 250 mg BID PO supplement Last administered on 08:55; Start 06/16/16 at 09:00 Trazodone HCl (Desyrel) 50 mg PRN QHS PRN PO insomnia Last administered on 06/19 00:02; Start 06/16/16 at 21:00 Ketotifen Fumarate (Zaditor) 1 drop BID OU Last administered on 07/03/16 08:58 ; Start 06/17/16 at 15:00 Divalproex Sodium (Depakote) 375 mg BID PO Last administered on 06/19/16 10:18 ; Start 06/17/16 at 21:00; Stop 06/19/16 at 15:14; Status DC Levothyroxine Sodium (Synthroid) 25 mcg DAILY07 PO Last administered on 06:01; Start 06/18/16 at 07:00 Vitamin D (Vitamin D3) 50,000 unit WEEKLY PO Last administered on 07/01/16 09: 58; Start 06/24/16 at 09:00 Divalproex Sodium (Depakote) 500 mg BID PO Last administered on 06/23/16 10:15 ; Start 06/19/16 at 21:00; Stop 06/23/16 at 18:51; Status DC Risperidone (Risperdal) 0.125 mg BID PO Last administered on 06/24/16 08:51; Start 06/22/16 at 21:00; Stop 06/24/16 at 18:20; Status DC Divalproex Sodium (Depakote) 625 mg BID PO Last administered on 06/27/16 07:54 ; Start 06/23/16 at 21:00; Stop 06/27/16 at 18:26; Status DC Risperidone (Risperdal) 0.125 mg TID PO Last administered on 07/03/16 13:10; Start 06/24/16 at 18:30 Trazodone HCl (Desyrel) 25 mg TID PO Last administered on 06/28/16 12:57; Start 06/24/16 at 21:00; Stop 06/28/16 at 19:29; Status DC Divalproex Sodium (Depakote) 750 mg BID PO Last administered on 07/03/16 08:55 ; Start 06/27/16 at 21:00 Trazodone HCl (Desyrel) 25 mg TID@ PO Last administered on 07/03/16 17 :28; Start 06/29/16 at 09:00 Cefpodoxime Proxetil (Vantin) 200 mg BID PO Last administered on 07/02/16 08: 50; Start 06/30/16 at 12:30; Stop 07/02/16 at 17:27; Status DC Doxycycline Hyclate (Vibra-Tab) 100 mg BID PO Last administered on 07/03/16 08 :56; Start 07/02/16 at 21:00 Lidocaine (Lidoderm) 1 patch DAILY TD Last administered on 07/03/16 08:58; Start 07/03/16 at 09:00 Active Scripts Active Reported Acetaminophen 325 Mg Tablet 650 Mg PO BID Trazodone Hcl 50 Mg Tablet 50 Mg PO HS Thiamine Hcl 250 Mg Tablet 250 Mg PO BID Quetiapine Fumarate 50 Mg Tablet 50 Mg PO DAILY Quetiapine Fumarate 100 Mg Tablet 100 Mg PO HS Milk Of Magnesia (Magnesium Hydroxide) 400 Mg/5 Ml Oral.susp 400 Mg PO PRN DAILY PRN Pataday (Olopatadine Hcl) 2.5 Ml Drops 1 Drop OU PRN PRN Diltiazem Hcl Tablet (Diltiazem Hcl) 60 Mg Tablet 120 Mg PO DAILY Chlorpromazine Hcl 25 Mg Tablet 12.5 Mg PO BID Lorazepam 1 Mg Tablet 1 Mg PO PRN Q4HRS PRN Proscar (Finasteride) 5 Mg Tablet 5 Mg PO DAILY Flomax (Tamsulosin Hcl) 0.4 Mg Cap.er.24h 0.4 Mg PO QHS [place] 3 Fish Oil Softgel ([place]-3 Fatty Acids/Fish Oil) 1 Each Capsule.dr 1,200 Mg PO DAILY Donepezil Hcl 10 Mg Tablet 10 Mg PO DAILY Depakote Er (Divalproex Sodium) 250 Mg Tab.er.24h 375 Mg PO BID Namenda (Memantine Hcl) 10 Mg Tablet 10 Mg PO BID Tylenol (Acetaminophen) 325 Mg Tablet 650 Mg PO PRN Q4HRS PRN Vitamin B-12 (Cyanocobalamin (Vitamin B-12)) 1,000 Mcg Tablet 1,000 Mcg PO DAILY Aspirin Ec (Aspirin) 81 Mg Tablet.dr 81 Mg PO DAILY Multivitamins (Multivitamin) 1 Each Tablet 1 Tab PO DAILY Docusate Sodium 100 Mg Capsule 100 Mg PO DAILY Diagnosis: Problems: (1) Agitation (2) Anxiety disorder (3) Dementia in Alzheimer's disease with delusions (4) Dementia in Alzheimer's disease with depression (5) Dementia, vascular, with delusions (6) Dementia, vascular, with depression (7) Impulse control disorder NATASHA LAIRD MD Jul 03, 2016 20:04
[2016-07-03] MEDS: TAMSULOSIN 0.4 MG CAP.ER.24H. PO SCH (20:36)
--- NOTE | 2016-07-04 00:30 | PN ---
DATE: 07/01/2016 PSYCHIATRIC PROGRESS NOTE This is late entry of 07/01/2016, covers elements not covered in my initial note. SUBJECTIVE: Overall, the patient remains confused, but less agitated. He is on Vantin for UTI, slightly inappropriate, sexually patting nursing staff on her bottom, but redirected. REVIEW OF SYSTEMS: No CV, , eye, ENT or pulmonary system symptoms on review. Reliability poor. MENTAL STATUS EXAMINATION: Oriented to himself. Insight, judgment, recent and remote memory, attention, concentration, fund of knowledge poor, consistent with his diagnosis mentioned in my initial note. PLAN: Continue current psychotropics. Risperdal, Depakote, Aricept, Ativan p.r.n., Namenda, trazodone scheduled and at bedtime p.r.n. Adjust further as clinically indicated. MAN Josh LAIRD MD DR: ONEYDA/ozzie JOB#: [id number] / [id number]
--- NOTE | 2016-07-04 00:38 | PN ---
DATE: 07/02/2016 PSYCHIATRIC PROGRESS NOTE This is late entry of 07/02/2016, covers elements not covered in my initial note. SUBJECTIVE: The patient was staffed at treatment team meeting with the entire team and the patient's daughter, Krupa attended. I had a lengthy discussion about patient's diagnosis, progress, medications, discharge and aftercare plans. The patient is sleeping between 5 and 6-1/2 hours, appetite 100%, tired during the day. REVIEW OF SYSTEMS: No CV, , eye, ENT or pulmonary system symptoms on review. Reliability poor. MENTAL STATUS EXAMINATION: Oriented to himself. Insight, judgment, recent and remote memory, attention, concentration, fund of knowledge poor, consistent with his diagnosis, pleasant, smiling as I met with him, oblivious of his surroundings. LABORATORY DATA: Reviewed. IMPRESSION: Unchanged from initial note. PLAN: Continue current psychotropics including Vantin for UTI. Adjust further as clinically indicated. No sexually inappropriate behaviors noted on 07/02/2016. MAN Josh LAIRD MD DR: ONEYDA/ozzie JOB#: [id number] / [id number]
[2016-07-04] MEDS: LEVOTHYROXINE 25 MCG TABLET. PO SCH (06:07)
[2016-07-04 06:33] VITALS: BP 138/79
[2016-07-04] MEDS: DOXYCYCLINE HYCLATE 100 MG TABLET PO SCH ×2 (09:39→19:54)
[2016-07-04] MEDS: DIVALPROEX SODIUM 250 MG TABLET.DR. PO SCH ×2 (09:39→19:54)
[2016-07-04] MEDS: CYANOCOBALAMIN (VITAMIN B-12) 1,000 MCG TABLET. PO SCH (09:40)
[2016-07-04] MEDS: ASPIRIN ENTERIC COATED 81 MG TABLET.DR. PO SCH (09:40)
[2016-07-04] MEDS: DONEPEZIL HCL 10 MG TABLET PO SCH (09:40)
[2016-07-04] MEDS: MULTIVITAMIN I-VITE TABLET. PO SCH (09:40)
[2016-07-04] MEDS: OMEGA-3 FATTY ACIDS/FISH OIL 1,000 MG CAPSULE. PO SCH (09:40)
[2016-07-04] MEDS: FINASTERIDE 5 MG TABLET PO SCH (09:40)
[2016-07-04] MEDS: DOCUSATE SODIUM 100 MG CAPSULE PO SCH (09:41)
[2016-07-04] MEDS: risperiDONE 0.25 MG TABLET. PO SCH ×3 (09:41→19:58)
[2016-07-04] MEDS: ACETAMINOPHEN 325 MG TABLET PO SCH ×2 (09:42→19:54)
[2016-07-04] MEDS: THIAMINE 100 MG TABLET. PO SCH ×2 (09:42→19:55)
[2016-07-04] MEDS: MEMANTINE 10 MG TABLET. PO SCH ×2 (09:42→19:55)
[2016-07-04] MEDS: traZODone 50 MG TABLET. PO SCH ×4 (09:43→19:55)
[2016-07-04] MEDS: LIDOCAINE (700MG/PATCH) PATCH. TD SCH (09:44)
[2016-07-04] MEDS: DILTIAZEM HCL 120 MG CAP.ER.24H PO SCH (09:53)
[2016-07-04] MEDS: KETOTIFEN FUMARATE 0.025% OPHT SOLUTION BOTTLE. OU SCH ×2 (09:53→19:59)
[2016-07-04 15:50] VITALS: BP 146/96
[2016-07-04] MEDS: TAMSULOSIN 0.4 MG CAP.ER.24H. PO SCH (19:55)
--- NOTE | 2016-07-04 22:02 | PDOC ---
Exam Jake Demential Exam: Jake Note: Please also refer to the separate dictated note~for this date of service dictated separately.~Patient seen individually. Discussed the patient with Nursing staff reviewed the chart.~Reviewed interim history and current functioning. Reviewed vital signs,~Labs/ Radiology~and current medications noted below. Continue current treatment with the changes noted in the dictated addendum note Assessment: Vital Signs: Vital Signs Date Time Temp Pulse Resp B/P Pulse Ox O2 Delivery O2 Flow Rate FiO2 07/04/16 15:50 98.1 72 17 146/96 98 Room Air I&O Intake and Output 07/04/16 07:00 Intake Total 720 ml Balance 720 ml Intake Oral 720 ml # Voids 3 # Bowel Movements 1 Current Medications: Meds: Current Medications Acetaminophen (Tylenol) 650 mg PRN Q6HRS PRN PO PAIN / TEMP; Start 06/16/16 at 03:15; Status Cancel Multi-Ingredient Ointment (Analgesic [place]) 1 sajan PRN QID PRN TP MUSCLE PAIN Last administered on 06/26/16 21:01; Start 06/16/16 at 03:15 Al Hydroxide/Mg Hydroxide (Mylanta Plus Xs) 15 ml PRN AFTMEALHC PRN PO DYSPEPSIA; Start 06/16/16 at 03:15 Magnesium Hydroxide (Milk Of Magnesia) 2,400 mg PRN QHS PRN PO CONSTIPATION; Start 06/16/16 at 03:15 Chlorpromazine HCl (Thorazine) 12.5 mg BID PO Last administered on 06/22/16 08: 31; Start 06/16/16 at 09:00; Stop 06/22/16 at 18:21; Status DC Divalproex Sodium (Depakote Er) 375 mg BID PO Last administered on 06/17/16 09 :55; Start 06/16/16 at 09:00; Stop 06/17/16 at 15:02; Status DC Donepezil HCl (Aricept) 10 mg DAILY PO Last administered on 07/04/16 09:40; Start 06/16/16 at 09:00 Lorazepam (Ativan) 1 mg PRN Q4HRS PRN PO ANXIETY / AGITATION Last administered on 06/16/16 22:40; Start 06/16/16 at 03:45 Memantine (Namenda) 10 mg BID PO Last administered on 07/04/16 19:55; Start at 09:00 Quetiapine Fumarate (SEROquel) 50 mg DAILY PO Last administered on 06/23/16 10: 18; Start 06/16/16 at 09:00; Stop 06/23/16 at 18:50; Status DC Quetiapine Fumarate (SEROquel) 100 mg HS PO Last administered on 06/22/16 20:12 ; Start 06/16/16 at 21:00; Stop 06/23/16 at 18:50; Status DC Trazodone HCl (Desyrel) 50 mg HS PO Last administered on 07/04/16 19:55; Start 06/16/16 at 21:00 Acetaminophen (Tylenol) 650 mg BID PO Last administered on 07/04/16 19:54; Start 06/16/16 at 09:00 Acetaminophen (Tylenol) 650 mg PRN Q4HRS PRN PO Pain/Fever Last administered on 06/19/16 15:06; Start 06/16/16 at 03:45 Aspirin (Aspirin Enteric Coated) 81 mg DAILY PO Last administered on 07/04/16 09:40; Start 06/16/16 at 09:00 Cyanocobalamin (Vitamin B-12) 1,000 mcg DAILY PO Last administered on 09:40; Start 06/16/16 at 09:00 Docusate Sodium (Colace) 100 mg DAILY PO Last administered on 07/04/16 09:41; Start 06/16/16 at 09:00 Finasteride (Proscar) 5 mg DAILY PO Last administered on 07/04/16 09:40; Start 06/16/16 at 09:00 Magnesium Hydroxide (Milk Of Magnesia) 400 mg PRN DAILY PRN PO CONSTIPATION Last administered on 06/28/16 06:22; Start 06/16/16 at 03:45 Tamsulosin HCl (Flomax) 0.4 mg QHS PO Last administered on 07/04/16 19:55; Start 06/16/16 at 21:00 Diltiazem HCl (Cardizem 24hr Cd) 120 mg DAILY PO Last administered on 09:53; Start 06/16/16 at 09:00 Multivitamins/ Minerals (I-Matthew) 1 tab DAILY PO Supplement Last administered on 07/04/16 09:40; Start 06/16/16 at 09:00 Ketotifen Fumarate (Zaditor) 1 drop BID OU Last administered on 06/17/16 09:54 ; Start 06/16/16 at 09:00; Stop 06/17/16 at 15:00; Status DC Fish Oil (Fish Oil) 1,000 mg DAILY PO Supplement Last administered on 07/04/16 09:40; Start 06/16/16 at 09:00 Thiamine HCl (Vitamin B-1) 250 mg BID PO supplement Last administered on 19:55; Start 06/16/16 at 09:00 Trazodone HCl (Desyrel) 50 mg PRN QHS PRN PO insomnia Last administered on 06/19 00:02; Start 06/16/16 at 21:00 Ketotifen Fumarate (Zaditor) 1 drop BID OU Last administered on 07/04/16 19:59 ; Start 06/17/16 at 15:00 Divalproex Sodium (Depakote) 375 mg BID PO Last administered on 06/19/16 10:18 ; Start 06/17/16 at 21:00; Stop 06/19/16 at 15:14; Status DC Levothyroxine Sodium (Synthroid) 25 mcg DAILY07 PO Last administered on 06:07; Start 06/18/16 at 07:00 Vitamin D (Vitamin D3) 50,000 unit WEEKLY PO Last administered on 07/01/16 09: 58; Start 06/24/16 at 09:00 Divalproex Sodium (Depakote) 500 mg BID PO Last administered on 06/23/16 10:15 ; Start 06/19/16 at 21:00; Stop 06/23/16 at 18:51; Status DC Risperidone (Risperdal) 0.125 mg BID PO Last administered on 06/24/16 08:51; Start 06/22/16 at 21:00; Stop 06/24/16 at 18:20; Status DC Divalproex Sodium (Depakote) 625 mg BID PO Last administered on 06/27/16 07:54 ; Start 06/23/16 at 21:00; Stop 06/27/16 at 18:26; Status DC Risperidone (Risperdal) 0.125 mg TID PO Last administered on 07/04/16 19:58; Start 06/24/16 at 18:30 Trazodone HCl (Desyrel) 25 mg TID PO Last administered on 06/28/16 12:57; Start 06/24/16 at 21:00; Stop 06/28/16 at 19:29; Status DC Divalproex Sodium (Depakote) 750 mg BID PO Last administered on 07/04/16 19:54 ; Start 06/27/16 at 21:00 Trazodone HCl (Desyrel) 25 mg TID@,, PO Last administered on 07/04/16 14 :47; Start 06/29/16 at 09:00 Cefpodoxime Proxetil (Vantin) 200 mg BID PO Last administered on 07/02/16 08: 50; Start 06/30/16 at 12:30; Stop 07/02/16 at 17:27; Status DC Doxycycline Hyclate (Vibra-Tab) 100 mg BID PO Last administered on 07/04/16 19 :54; Start 07/02/16 at 21:00 Lidocaine (Lidoderm) 1 patch DAILY TD Last administered on 07/04/16 09:44; Start 07/03/16 at 09:00 Active Scripts Active Reported Acetaminophen 325 Mg Tablet 650 Mg PO BID Trazodone Hcl 50 Mg Tablet 50 Mg PO HS Thiamine Hcl 250 Mg Tablet 250 Mg PO BID Quetiapine Fumarate 50 Mg Tablet 50 Mg PO DAILY Quetiapine Fumarate 100 Mg Tablet 100 Mg PO HS Milk Of Magnesia (Magnesium Hydroxide) 400 Mg/5 Ml Oral.susp 400 Mg PO PRN DAILY PRN Pataday (Olopatadine Hcl) 2.5 Ml Drops 1 Drop OU PRN PRN Diltiazem Hcl Tablet (Diltiazem Hcl) 60 Mg Tablet 120 Mg PO DAILY Chlorpromazine Hcl 25 Mg Tablet 12.5 Mg PO BID Lorazepam 1 Mg Tablet 1 Mg PO PRN Q4HRS PRN Proscar (Finasteride) 5 Mg Tablet 5 Mg PO DAILY Flomax (Tamsulosin Hcl) 0.4 Mg Cap.er.24h 0.4 Mg PO QHS [place] 3 Fish Oil Softgel ([place]-3 Fatty Acids/Fish Oil) 1 Each Capsule.dr 1,200 Mg PO DAILY Donepezil Hcl 10 Mg Tablet 10 Mg PO DAILY Depakote Er (Divalproex Sodium) 250 Mg Tab.er.24h 375 Mg PO BID Namenda (Memantine Hcl) 10 Mg Tablet 10 Mg PO BID Tylenol (Acetaminophen) 325 Mg Tablet 650 Mg PO PRN Q4HRS PRN Vitamin B-12 (Cyanocobalamin (Vitamin B-12)) 1,000 Mcg Tablet 1,000 Mcg PO DAILY Aspirin Ec (Aspirin) 81 Mg Tablet.dr 81 Mg PO DAILY Multivitamins (Multivitamin) 1 Each Tablet 1 Tab PO DAILY Docusate Sodium 100 Mg Capsule 100 Mg PO DAILY Diagnosis: Problems: (1) Agitation (2) Anxiety disorder (3) Dementia in Alzheimer's disease with delusions (4) Dementia in Alzheimer's disease with depression (5) Dementia, vascular, with delusions (6) Dementia, vascular, with depression (7) Impulse control disorder NATASHA LAIRD MD Jul 04, 2016 22:02
[2016-07-05] MEDS: LEVOTHYROXINE 25 MCG TABLET. PO SCH (05:35)
[2016-07-05 06:13] VITALS: BP 157/94
[2016-07-05] MEDS: FINASTERIDE 5 MG TABLET PO SCH (09:11)
[2016-07-05] MEDS: risperiDONE 0.25 MG TABLET. PO SCH ×3 (09:12→19:57)
[2016-07-05] MEDS: CYANOCOBALAMIN (VITAMIN B-12) 1,000 MCG TABLET. PO SCH (09:12)
[2016-07-05] MEDS: DOCUSATE SODIUM 100 MG CAPSULE PO SCH (09:12)
[2016-07-05] MEDS: DOXYCYCLINE HYCLATE 100 MG TABLET PO SCH ×2 (09:12→19:55)
[2016-07-05] MEDS: MEMANTINE 10 MG TABLET. PO SCH ×2 (09:12→19:57)
[2016-07-05] MEDS: ACETAMINOPHEN 325 MG TABLET PO SCH ×2 (09:12→19:55)
[2016-07-05] MEDS: ASPIRIN ENTERIC COATED 81 MG TABLET.DR. PO SCH (09:12)
[2016-07-05] MEDS: DILTIAZEM HCL 120 MG CAP.ER.24H PO SCH (09:12)
[2016-07-05] MEDS: OMEGA-3 FATTY ACIDS/FISH OIL 1,000 MG CAPSULE. PO SCH (09:12)
[2016-07-05] MEDS: traZODone 50 MG TABLET. PO SCH ×4 (09:13→19:57)
[2016-07-05] MEDS: MULTIVITAMIN I-VITE TABLET. PO SCH (09:13)
[2016-07-05] MEDS: DONEPEZIL HCL 10 MG TABLET PO SCH (09:13)
[2016-07-05] MEDS: THIAMINE 100 MG TABLET. PO SCH ×2 (09:13→19:57)
[2016-07-05] MEDS: DIVALPROEX SODIUM 250 MG TABLET.DR. PO SCH ×2 (09:13→19:58)
[2016-07-05] MEDS: KETOTIFEN FUMARATE 0.025% OPHT SOLUTION BOTTLE. OU SCH ×2 (09:14→19:54)
[2016-07-05] MEDS: LIDOCAINE (700MG/PATCH) PATCH. TD SCH (09:14)
[2016-07-05 16:09] VITALS: BP 144/76
[2016-07-05] MEDS: TAMSULOSIN 0.4 MG CAP.ER.24H. PO SCH (19:55)
--- NOTE | 2016-07-05 20:59 | PN ---
DATE: 07/03/2016 PSYCHIATRIC PROGRESS NOTE This is late entry of 07/03/2016, covers elements not covered in my initial note. SUBJECTIVE: The patient has done better during the day on 07/03/2016, slept 8 hours previous night, cooperative, compliant with medications, did have a CT abdomen per Dr. Vyas. I will defer medical followup to Dr. Vyas. REVIEW OF SYSTEMS: No CV, , pulmonary, eye, ENT system symptoms on review. Reliability poor. MENTAL STATUS EXAMINATION: Oriented to himself. Insight, judgment, recent and remote memory, attention, concentration, fund of knowledge poor, consistent with his diagnosis mentioned in my initial note. PLAN: Continue current psychotropics. Adjust further as clinically indicated. MAN Josh LAIRD MD DR: ONEYDA/ozzie JOB#: [id number] / [id number]
--- NOTE | 2016-07-05 21:02 | PN ---
DATE: 07/04/2016 PSYCHIATRIC PROGRESS NOTE This is late entry of 07/04/2016, covers elements not covered in my initial note. SUBJECTIVE: The patient has been confused, but cooperative, compliant with meds and assessment, withdrawn slightly, inappropriate, asked female nursing staff if she wanted to join him in the shower. REVIEW OF SYSTEMS: No CV, , pulmonary, eye, ENT system symptoms on review. Reliability poor. MENTAL STATUS EXAMINATION: Oriented to himself. Insight, judgment, recent and remote memory, attention, concentration, fund of knowledge poor, consistent with his diagnosis mentioned in my initial note. PLAN: Continue current psychotropics. Adjust further as clinically indicated. MAN Josh LAIRD MD DR: ONEYDA/ozzie JOB#: [id number] / [id number]
--- NOTE | 2016-07-05 21:23 | PDOC ---
Exam Jake Demential Exam: Jake Note: Please also refer to the separate dictated note~for this date of service dictated separately.~Patient seen individually. Discussed the patient with Nursing staff reviewed the chart.~Reviewed interim history and current functioning. Reviewed vital signs,~Labs/ Radiology~and current medications noted below. Continue current treatment with the changes noted in the dictated addendum note Assessment: Vital Signs: Vital Signs Date Time Temp Pulse Resp B/P Pulse Ox O2 Delivery O2 Flow Rate FiO2 07/05/16 16:09 96.9 67 18 144/76 96 07/05/16 06:13 Room Air I&O Intake and Output 07/05/16 07:00 Intake Total 720 ml Balance 720 ml Intake Oral 720 ml Current Medications: Meds: Current Medications Acetaminophen (Tylenol) 650 mg PRN Q6HRS PRN PO PAIN / TEMP; Start 06/16/16 at 03:15; Status Cancel Multi-Ingredient Ointment (Analgesic [place]) 1 sajan PRN QID PRN TP MUSCLE PAIN Last administered on 06/26/16 21:01; Start 06/16/16 at 03:15 Al Hydroxide/Mg Hydroxide (Mylanta Plus Xs) 15 ml PRN AFTMEALHC PRN PO DYSPEPSIA; Start 06/16/16 at 03:15 Magnesium Hydroxide (Milk Of Magnesia) 2,400 mg PRN QHS PRN PO CONSTIPATION; Start 06/16/16 at 03:15 Chlorpromazine HCl (Thorazine) 12.5 mg BID PO Last administered on 06/22/16 08: 31; Start 06/16/16 at 09:00; Stop 06/22/16 at 18:21; Status DC Divalproex Sodium (Depakote Er) 375 mg BID PO Last administered on 06/17/16 09 :55; Start 06/16/16 at 09:00; Stop 06/17/16 at 15:02; Status DC Donepezil HCl (Aricept) 10 mg DAILY PO Last administered on 07/05/16 09:13; Start 06/16/16 at 09:00 Lorazepam (Ativan) 1 mg PRN Q4HRS PRN PO ANXIETY / AGITATION Last administered on 06/16/16 22:40; Start 06/16/16 at 03:45 Memantine (Namenda) 10 mg BID PO Last administered on 07/05/16 19:57; Start at 09:00 Quetiapine Fumarate (SEROquel) 50 mg DAILY PO Last administered on 06/23/16 10: 18; Start 06/16/16 at 09:00; Stop 06/23/16 at 18:50; Status DC Quetiapine Fumarate (SEROquel) 100 mg HS PO Last administered on 06/22/16 20:12 ; Start 06/16/16 at 21:00; Stop 06/23/16 at 18:50; Status DC Trazodone HCl (Desyrel) 50 mg HS PO Last administered on 07/05/16 19:57; Start 06/16/16 at 21:00 Acetaminophen (Tylenol) 650 mg BID PO Last administered on 07/05/16 19:55; Start 06/16/16 at 09:00 Acetaminophen (Tylenol) 650 mg PRN Q4HRS PRN PO Pain/Fever Last administered on 06/19/16 15:06; Start 06/16/16 at 03:45 Aspirin (Aspirin Enteric Coated) 81 mg DAILY PO Last administered on 07/05/16 09:12; Start 06/16/16 at 09:00 Cyanocobalamin (Vitamin B-12) 1,000 mcg DAILY PO Last administered on 09:12; Start 06/16/16 at 09:00 Docusate Sodium (Colace) 100 mg DAILY PO Last administered on 07/05/16 09:12; Start 06/16/16 at 09:00 Finasteride (Proscar) 5 mg DAILY PO Last administered on 07/05/16 09:11; Start 06/16/16 at 09:00 Magnesium Hydroxide (Milk Of Magnesia) 400 mg PRN DAILY PRN PO CONSTIPATION Last administered on 06/28/16 06:22; Start 06/16/16 at 03:45 Tamsulosin HCl (Flomax) 0.4 mg QHS PO Last administered on 07/05/16 19:55; Start 06/16/16 at 21:00 Diltiazem HCl (Cardizem 24hr Cd) 120 mg DAILY PO Last administered on 09:12; Start 06/16/16 at 09:00 Multivitamins/ Minerals (I-Matthew) 1 tab DAILY PO Supplement Last administered on 07/05/16 09:13; Start 06/16/16 at 09:00 Ketotifen Fumarate (Zaditor) 1 drop BID OU Last administered on 06/17/16 09:54 ; Start 06/16/16 at 09:00; Stop 06/17/16 at 15:00; Status DC Fish Oil (Fish Oil) 1,000 mg DAILY PO Supplement Last administered on 07/05/16 09:12; Start 06/16/16 at 09:00 Thiamine HCl (Vitamin B-1) 250 mg BID PO supplement Last administered on 19:57; Start 06/16/16 at 09:00 Trazodone HCl (Desyrel) 50 mg PRN QHS PRN PO insomnia Last administered on 06/19 00:02; Start 06/16/16 at 21:00 Ketotifen Fumarate (Zaditor) 1 drop BID OU Last administered on 07/05/16 19:54 ; Start 06/17/16 at 15:00 Divalproex Sodium (Depakote) 375 mg BID PO Last administered on 06/19/16 10:18 ; Start 06/17/16 at 21:00; Stop 06/19/16 at 15:14; Status DC Levothyroxine Sodium (Synthroid) 25 mcg DAILY07 PO Last administered on 05:35; Start 06/18/16 at 07:00 Vitamin D (Vitamin D3) 50,000 unit WEEKLY PO Last administered on 07/01/16 09: 58; Start 06/24/16 at 09:00 Divalproex Sodium (Depakote) 500 mg BID PO Last administered on 06/23/16 10:15 ; Start 06/19/16 at 21:00; Stop 06/23/16 at 18:51; Status DC Risperidone (Risperdal) 0.125 mg BID PO Last administered on 06/24/16 08:51; Start 06/22/16 at 21:00; Stop 06/24/16 at 18:20; Status DC Divalproex Sodium (Depakote) 625 mg BID PO Last administered on 06/27/16 07:54 ; Start 06/23/16 at 21:00; Stop 06/27/16 at 18:26; Status DC Risperidone (Risperdal) 0.125 mg TID PO Last administered on 07/05/16 19:57; Start 06/24/16 at 18:30 Trazodone HCl (Desyrel) 25 mg TID PO Last administered on 06/28/16 12:57; Start 06/24/16 at 21:00; Stop 06/28/16 at 19:29; Status DC Divalproex Sodium (Depakote) 750 mg BID PO Last administered on 07/05/16 19:58 ; Start 06/27/16 at 21:00 Trazodone HCl (Desyrel) 25 mg TID@,, PO Last administered on 07/05/16 17 :13; Start 06/29/16 at 09:00 Cefpodoxime Proxetil (Vantin) 200 mg BID PO Last administered on 07/02/16 08: 50; Start 06/30/16 at 12:30; Stop 07/02/16 at 17:27; Status DC Doxycycline Hyclate (Vibra-Tab) 100 mg BID PO Last administered on 07/05/16 19 :55; Start 07/02/16 at 21:00 Lidocaine (Lidoderm) 1 patch DAILY TD Last administered on 07/05/16 09:14; Start 07/03/16 at 09:00 Active Scripts Active Reported Acetaminophen 325 Mg Tablet 650 Mg PO BID Trazodone Hcl 50 Mg Tablet 50 Mg PO HS Thiamine Hcl 250 Mg Tablet 250 Mg PO BID Quetiapine Fumarate 50 Mg Tablet 50 Mg PO DAILY Quetiapine Fumarate 100 Mg Tablet 100 Mg PO HS Milk Of Magnesia (Magnesium Hydroxide) 400 Mg/5 Ml Oral.susp 400 Mg PO PRN DAILY PRN Pataday (Olopatadine Hcl) 2.5 Ml Drops 1 Drop OU PRN PRN Diltiazem Hcl Tablet (Diltiazem Hcl) 60 Mg Tablet 120 Mg PO DAILY Chlorpromazine Hcl 25 Mg Tablet 12.5 Mg PO BID Lorazepam 1 Mg Tablet 1 Mg PO PRN Q4HRS PRN Proscar (Finasteride) 5 Mg Tablet 5 Mg PO DAILY Flomax (Tamsulosin Hcl) 0.4 Mg Cap.er.24h 0.4 Mg PO QHS [place] 3 Fish Oil Softgel ([place]-3 Fatty Acids/Fish Oil) 1 Each Capsule.dr 1,200 Mg PO DAILY Donepezil Hcl 10 Mg Tablet 10 Mg PO DAILY Depakote Er (Divalproex Sodium) 250 Mg Tab.er.24h 375 Mg PO BID Namenda (Memantine Hcl) 10 Mg Tablet 10 Mg PO BID Tylenol (Acetaminophen) 325 Mg Tablet 650 Mg PO PRN Q4HRS PRN Vitamin B-12 (Cyanocobalamin (Vitamin B-12)) 1,000 Mcg Tablet 1,000 Mcg PO DAILY Aspirin Ec (Aspirin) 81 Mg Tablet.dr 81 Mg PO DAILY Multivitamins (Multivitamin) 1 Each Tablet 1 Tab PO DAILY Docusate Sodium 100 Mg Capsule 100 Mg PO DAILY Diagnosis: Problems: (1) Agitation (2) Anxiety disorder (3) Dementia in Alzheimer's disease with delusions (4) Dementia in Alzheimer's disease with depression (5) Dementia, vascular, with delusions (6) Dementia, vascular, with depression (7) Impulse control disorder NATASHA LAIRD MD Jul 05, 2016 21:23
[2016-07-06] MEDS: LEVOTHYROXINE 25 MCG TABLET. PO SCH (05:56)
[2016-07-06 06:14] VITALS: BP 157/96
[2016-07-06] MEDS: DIVALPROEX SODIUM 250 MG TABLET.DR. PO SCH ×2 (09:27→19:24)
[2016-07-06] MEDS: OMEGA-3 FATTY ACIDS/FISH OIL 1,000 MG CAPSULE. PO SCH (09:27)
[2016-07-06] MEDS: FINASTERIDE 5 MG TABLET PO SCH (09:28)
[2016-07-06] MEDS: traZODone 50 MG TABLET. PO SCH ×4 (09:28→19:25)
[2016-07-06] MEDS: THIAMINE 100 MG TABLET. PO SCH ×2 (09:28→19:26)
[2016-07-06] MEDS: risperiDONE 0.25 MG TABLET. PO SCH ×3 (09:28→19:25)
[2016-07-06] MEDS: MULTIVITAMIN I-VITE TABLET. PO SCH (09:28)
[2016-07-06] MEDS: ACETAMINOPHEN 325 MG TABLET PO SCH ×2 (09:28→19:26)
[2016-07-06] MEDS: CYANOCOBALAMIN (VITAMIN B-12) 1,000 MCG TABLET. PO SCH (09:28)
[2016-07-06] MEDS: MEMANTINE 10 MG TABLET. PO SCH ×2 (09:29→19:24)
[2016-07-06] MEDS: DOCUSATE SODIUM 100 MG CAPSULE PO SCH (09:29)
[2016-07-06] MEDS: DOXYCYCLINE HYCLATE 100 MG TABLET PO SCH ×2 (09:29→19:26)
[2016-07-06] MEDS: DONEPEZIL HCL 10 MG TABLET PO SCH (09:29)
[2016-07-06] MEDS: LIDOCAINE (700MG/PATCH) PATCH. TD SCH (09:29)
[2016-07-06] MEDS: ASPIRIN ENTERIC COATED 81 MG TABLET.DR. PO SCH (09:29)
[2016-07-06] MEDS: KETOTIFEN FUMARATE 0.025% OPHT SOLUTION BOTTLE. OU SCH ×2 (09:30→19:28)
[2016-07-06] MEDS: DILTIAZEM HCL 120 MG CAP.ER.24H PO SCH (09:31)
[2016-07-06 15:24] VITALS: BP 128/77
[2016-07-06] MEDS: TAMSULOSIN 0.4 MG CAP.ER.24H. PO SCH (19:25)
--- NOTE | 2016-07-06 20:56 | PDOC ---
Exam Jake Demential Exam: Jake Note: Please also refer to the separate dictated note~for this date of service dictated separately.~Patient seen individually. Discussed the patient with Nursing staff reviewed the chart.~Reviewed interim history and current functioning. Reviewed vital signs,~Labs/ Radiology~and current medications noted below. Continue current treatment with the changes noted in the dictated addendum note Assessment: Vital Signs: Vital Signs Date Time Temp Pulse Resp B/P Pulse Ox O2 Delivery O2 Flow Rate FiO2 07/06/16 15:24 97.5 86 19 128/77 95 07/05/16 06:13 Room Air I&O Intake and Output 07/06/16 07:00 Intake Total 480 ml Balance 480 ml Intake Oral 480 ml # Bowel Movements 1 Current Medications: Meds: Current Medications Acetaminophen (Tylenol) 650 mg PRN Q6HRS PRN PO PAIN / TEMP; Start 06/16/16 at 03:15; Status Cancel Multi-Ingredient Ointment (Analgesic [place]) 1 sajan PRN QID PRN TP MUSCLE PAIN Last administered on 06/26/16 21:01; Start 06/16/16 at 03:15 Al Hydroxide/Mg Hydroxide (Mylanta Plus Xs) 15 ml PRN AFTMEALHC PRN PO DYSPEPSIA; Start 06/16/16 at 03:15 Magnesium Hydroxide (Milk Of Magnesia) 2,400 mg PRN QHS PRN PO CONSTIPATION; Start 06/16/16 at 03:15 Chlorpromazine HCl (Thorazine) 12.5 mg BID PO Last administered on 06/22/16 08: 31; Start 06/16/16 at 09:00; Stop 06/22/16 at 18:21; Status DC Divalproex Sodium (Depakote Er) 375 mg BID PO Last administered on 06/17/16 09 :55; Start 06/16/16 at 09:00; Stop 06/17/16 at 15:02; Status DC Donepezil HCl (Aricept) 10 mg DAILY PO Last administered on 07/06/16 09:29; Start 06/16/16 at 09:00 Lorazepam (Ativan) 1 mg PRN Q4HRS PRN PO ANXIETY / AGITATION Last administered on 06/16/16 22:40; Start 06/16/16 at 03:45 Memantine (Namenda) 10 mg BID PO Last administered on 07/06/16 19:24; Start at 09:00 Quetiapine Fumarate (SEROquel) 50 mg DAILY PO Last administered on 06/23/16 10: 18; Start 06/16/16 at 09:00; Stop 06/23/16 at 18:50; Status DC Quetiapine Fumarate (SEROquel) 100 mg HS PO Last administered on 06/22/16 20:12 ; Start 06/16/16 at 21:00; Stop 06/23/16 at 18:50; Status DC Trazodone HCl (Desyrel) 50 mg HS PO Last administered on 07/06/16 19:25; Start 06/16/16 at 21:00 Acetaminophen (Tylenol) 650 mg BID PO Last administered on 07/06/16 19:26; Start 06/16/16 at 09:00 Acetaminophen (Tylenol) 650 mg PRN Q4HRS PRN PO Pain/Fever Last administered on 06/19/16 15:06; Start 06/16/16 at 03:45 Aspirin (Aspirin Enteric Coated) 81 mg DAILY PO Last administered on 07/06/16 09:29; Start 06/16/16 at 09:00 Cyanocobalamin (Vitamin B-12) 1,000 mcg DAILY PO Last administered on 09:28; Start 06/16/16 at 09:00 Docusate Sodium (Colace) 100 mg DAILY PO Last administered on 07/06/16 09:29; Start 06/16/16 at 09:00 Finasteride (Proscar) 5 mg DAILY PO Last administered on 07/06/16 09:28; Start 06/16/16 at 09:00 Magnesium Hydroxide (Milk Of Magnesia) 400 mg PRN DAILY PRN PO CONSTIPATION Last administered on 06/28/16 06:22; Start 06/16/16 at 03:45 Tamsulosin HCl (Flomax) 0.4 mg QHS PO Last administered on 07/06/16 19:25; Start 06/16/16 at 21:00 Diltiazem HCl (Cardizem 24hr Cd) 120 mg DAILY PO Last administered on 09:31; Start 06/16/16 at 09:00 Multivitamins/ Minerals (I-Matthew) 1 tab DAILY PO Supplement Last administered on 07/06/16 09:28; Start 06/16/16 at 09:00 Ketotifen Fumarate (Zaditor) 1 drop BID OU Last administered on 06/17/16 09:54 ; Start 06/16/16 at 09:00; Stop 06/17/16 at 15:00; Status DC Fish Oil (Fish Oil) 1,000 mg DAILY PO Supplement Last administered on 07/06/16 09:27; Start 06/16/16 at 09:00 Thiamine HCl (Vitamin B-1) 250 mg BID PO supplement Last administered on 19:26; Start 06/16/16 at 09:00 Trazodone HCl (Desyrel) 50 mg PRN QHS PRN PO insomnia Last administered on 06/19 00:02; Start 06/16/16 at 21:00 Ketotifen Fumarate (Zaditor) 1 drop BID OU Last administered on 07/06/16 19:28 ; Start 06/17/16 at 15:00 Divalproex Sodium (Depakote) 375 mg BID PO Last administered on 06/19/16 10:18 ; Start 06/17/16 at 21:00; Stop 06/19/16 at 15:14; Status DC Levothyroxine Sodium (Synthroid) 25 mcg DAILY07 PO Last administered on 05:56; Start 06/18/16 at 07:00 Vitamin D (Vitamin D3) 50,000 unit WEEKLY PO Last administered on 07/01/16 09: 58; Start 06/24/16 at 09:00 Divalproex Sodium (Depakote) 500 mg BID PO Last administered on 06/23/16 10:15 ; Start 06/19/16 at 21:00; Stop 06/23/16 at 18:51; Status DC Risperidone (Risperdal) 0.125 mg BID PO Last administered on 06/24/16 08:51; Start 06/22/16 at 21:00; Stop 06/24/16 at 18:20; Status DC Divalproex Sodium (Depakote) 625 mg BID PO Last administered on 06/27/16 07:54 ; Start 06/23/16 at 21:00; Stop 06/27/16 at 18:26; Status DC Risperidone (Risperdal) 0.125 mg TID PO Last administered on 07/06/16 19:25; Start 06/24/16 at 18:30 Trazodone HCl (Desyrel) 25 mg TID PO Last administered on 06/28/16 12:57; Start 06/24/16 at 21:00; Stop 06/28/16 at 19:29; Status DC Divalproex Sodium (Depakote) 750 mg BID PO Last administered on 07/06/16 19:24 ; Start 06/27/16 at 21:00 Trazodone HCl (Desyrel) 25 mg TID@ PO Last administered on 07/06/16 17 :00; Start 06/29/16 at 09:00 Cefpodoxime Proxetil (Vantin) 200 mg BID PO Last administered on 07/02/16 08: 50; Start 06/30/16 at 12:30; Stop 07/02/16 at 17:27; Status DC Doxycycline Hyclate (Vibra-Tab) 100 mg BID PO Last administered on 07/06/16 19 :26; Start 07/02/16 at 21:00 Lidocaine (Lidoderm) 1 patch DAILY TD Last administered on 07/06/16 09:29; Start 07/03/16 at 09:00 Active Scripts Active Reported Acetaminophen 325 Mg Tablet 650 Mg PO BID Trazodone Hcl 50 Mg Tablet 50 Mg PO HS Thiamine Hcl 250 Mg Tablet 250 Mg PO BID Quetiapine Fumarate 50 Mg Tablet 50 Mg PO DAILY Quetiapine Fumarate 100 Mg Tablet 100 Mg PO HS Milk Of Magnesia (Magnesium Hydroxide) 400 Mg/5 Ml Oral.susp 400 Mg PO PRN DAILY PRN Pataday (Olopatadine Hcl) 2.5 Ml Drops 1 Drop OU PRN PRN Diltiazem Hcl Tablet (Diltiazem Hcl) 60 Mg Tablet 120 Mg PO DAILY Chlorpromazine Hcl 25 Mg Tablet 12.5 Mg PO BID Lorazepam 1 Mg Tablet 1 Mg PO PRN Q4HRS PRN Proscar (Finasteride) 5 Mg Tablet 5 Mg PO DAILY Flomax (Tamsulosin Hcl) 0.4 Mg Cap.er.24h 0.4 Mg PO QHS [place] 3 Fish Oil Softgel ([place]-3 Fatty Acids/Fish Oil) 1 Each Capsule.dr 1,200 Mg PO DAILY Donepezil Hcl 10 Mg Tablet 10 Mg PO DAILY Depakote Er (Divalproex Sodium) 250 Mg Tab.er.24h 375 Mg PO BID Namenda (Memantine Hcl) 10 Mg Tablet 10 Mg PO BID Tylenol (Acetaminophen) 325 Mg Tablet 650 Mg PO PRN Q4HRS PRN Vitamin B-12 (Cyanocobalamin (Vitamin B-12)) 1,000 Mcg Tablet 1,000 Mcg PO DAILY Aspirin Ec (Aspirin) 81 Mg Tablet.dr 81 Mg PO DAILY Multivitamins (Multivitamin) 1 Each Tablet 1 Tab PO DAILY Docusate Sodium 100 Mg Capsule 100 Mg PO DAILY Diagnosis: Problems: (1) Agitation (2) Anxiety disorder (3) Dementia in Alzheimer's disease with delusions (4) Dementia in Alzheimer's disease with depression (5) Dementia, vascular, with delusions (6) Dementia, vascular, with depression (7) Impulse control disorder NATASHA LAIRD MD Jul 06, 2016 20:56
--- NOTE | 2016-07-06 21:25 | PN ---
DATE: 07/05/2016 PSYCHIATRIC PROGRESS NOTE This is late entry of 07/05/2016, covers elements not covered in my initial note. SUBJECTIVE: The patient remains confused, somewhat withdrawn at times, not aggressive. REVIEW OF SYSTEMS: No CV, , pulmonary, eye system symptoms on review. Reliability poor. MENTAL STATUS EXAMINATION: Oriented to himself. Insight, judgment, recent and remote memory, attention, concentration, fund of knowledge poor, consistent with his diagnosis. LABORATORY DATA: Reviewed. IMPRESSION: Unchanged from initial note. PLAN: Continue current psychotropics. Adjust as indicated clinically. MAN Josh LAIRD MD DR: ONEYDA/ozzie JOB#: [id number] / [id number]
[2016-07-07] MEDS: LEVOTHYROXINE 25 MCG TABLET. PO SCH (06:04)
[2016-07-07 06:24] VITALS: BP 145/83
[2016-07-07] MEDS: ACETAMINOPHEN 325 MG TABLET PO SCH ×2 (09:05→19:15)
[2016-07-07] MEDS: FINASTERIDE 5 MG TABLET PO SCH (09:05)
[2016-07-07] MEDS: DIVALPROEX SODIUM 250 MG TABLET.DR. PO SCH ×2 (09:05→19:13)
[2016-07-07] MEDS: MEMANTINE 10 MG TABLET. PO SCH ×2 (09:05→19:15)
[2016-07-07] MEDS: OMEGA-3 FATTY ACIDS/FISH OIL 1,000 MG CAPSULE. PO SCH (09:05)
[2016-07-07] MEDS: CYANOCOBALAMIN (VITAMIN B-12) 1,000 MCG TABLET. PO SCH (09:06)
[2016-07-07] MEDS: DILTIAZEM HCL 120 MG CAP.ER.24H PO SCH (09:06)
[2016-07-07] MEDS: MULTIVITAMIN I-VITE TABLET. PO SCH (09:06)
[2016-07-07] MEDS: risperiDONE 0.25 MG TABLET. PO SCH ×3 (09:06→19:14)
[2016-07-07] MEDS: DOCUSATE SODIUM 100 MG CAPSULE PO SCH (09:06)
[2016-07-07] MEDS: DOXYCYCLINE HYCLATE 100 MG TABLET PO SCH ×2 (09:06→19:14)
[2016-07-07] MEDS: THIAMINE 100 MG TABLET. PO SCH ×2 (09:06→19:14)
[2016-07-07] MEDS: CHOLECALCIFEROL (VITAMIN D3) 50,000 UNIT CAPSULE PO SCH (09:06)
[2016-07-07] MEDS: ASPIRIN ENTERIC COATED 81 MG TABLET.DR. PO SCH (09:06)
[2016-07-07] MEDS: traZODone 50 MG TABLET. PO SCH ×4 (09:07→19:15)
[2016-07-07] MEDS: DONEPEZIL HCL 10 MG TABLET PO SCH (09:07)
[2016-07-07] MEDS: KETOTIFEN FUMARATE 0.025% OPHT SOLUTION BOTTLE. OU SCH ×2 (09:11→19:16)
[2016-07-07] MEDS: LIDOCAINE (700MG/PATCH) PATCH. TD SCH (09:12)
[2016-07-07 15:15] VITALS: BP 127/77
[2016-07-07] MEDS: TAMSULOSIN 0.4 MG CAP.ER.24H. PO SCH (19:15)
--- NOTE | 2016-07-07 19:34 | PN ---
DATE: 07/06/2016 PSYCHIATRIC PROGRESS NOTE This is late entry of 07/06/2016, covers elements not covered in my initial note. SUBJECTIVE: Overall, the patient remains confused, withdrawn. 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 Behaviorally, he is doing better. REVIEW OF SYSTEMS: No CV, , pulmonary, eye, ENT system symptoms on review. MENTAL STATUS EXAMINATION: Oriented to himself. Insight, judgment, recent and remote memory, attention, concentration, fund of knowledge poor, consistent with his diagnosis mentioned in my initial note. PLAN: Continue psychotropics mentioned in my initial note, Risperdal, Depakote, Aricept, Ativan, Namenda, trazodone, along with scheduled trazodone during the day. Adjust further as clinically indicated. MAN Josh LAIRD MD DR: ONEYDA/ozzie JOB#: [id number] / [id number]
--- NOTE | 2016-07-07 20:57 | PDOC ---
Exam Jake Demential Exam: Jake Note: Please also refer to the separate dictated note~for this date of service dictated separately.~Patient seen individually. Discussed the patient with Nursing staff reviewed the chart.~Reviewed interim history and current functioning. Reviewed vital signs,~Labs/ Radiology~and current medications noted below. Continue current treatment with the changes noted in the dictated addendum note Assessment: Vital Signs: Vital Signs Date Time Temp Pulse Resp B/P Pulse Ox O2 Delivery O2 Flow Rate FiO2 07/07/16 15:15 97.2 86 18 127/77 97 07/05/16 06:13 Room Air I&O Intake and Output 07/07/16 07:00 Intake Total 1320 ml Balance 1320 ml Intake Oral 1320 ml # Voids 3 Current Medications: Meds: Current Medications Acetaminophen (Tylenol) 650 mg PRN Q6HRS PRN PO PAIN / TEMP; Start 06/16/16 at 03:15; Status Cancel Multi-Ingredient Ointment (Analgesic [place]) 1 sajan PRN QID PRN TP MUSCLE PAIN Last administered on 06/26/16 21:01; Start 06/16/16 at 03:15 Al Hydroxide/Mg Hydroxide (Mylanta Plus Xs) 15 ml PRN AFTMEALHC PRN PO DYSPEPSIA; Start 06/16/16 at 03:15 Magnesium Hydroxide (Milk Of Magnesia) 2,400 mg PRN QHS PRN PO CONSTIPATION; Start 06/16/16 at 03:15 Chlorpromazine HCl (Thorazine) 12.5 mg BID PO Last administered on 06/22/16 08: 31; Start 06/16/16 at 09:00; Stop 06/22/16 at 18:21; Status DC Divalproex Sodium (Depakote Er) 375 mg BID PO Last administered on 06/17/16 09 :55; Start 06/16/16 at 09:00; Stop 06/17/16 at 15:02; Status DC Donepezil HCl (Aricept) 10 mg DAILY PO Last administered on 07/07/16 09:07; Start 06/16/16 at 09:00 Lorazepam (Ativan) 1 mg PRN Q4HRS PRN PO ANXIETY / AGITATION Last administered on 06/16/16 22:40; Start 06/16/16 at 03:45 Memantine (Namenda) 10 mg BID PO Last administered on 07/07/16 19:15; Start at 09:00 Quetiapine Fumarate (SEROquel) 50 mg DAILY PO Last administered on 06/23/16 10: 18; Start 06/16/16 at 09:00; Stop 06/23/16 at 18:50; Status DC Quetiapine Fumarate (SEROquel) 100 mg HS PO Last administered on 06/22/16 20:12 ; Start 06/16/16 at 21:00; Stop 06/23/16 at 18:50; Status DC Trazodone HCl (Desyrel) 50 mg HS PO Last administered on 07/07/16 19:15; Start 06/16/16 at 21:00 Acetaminophen (Tylenol) 650 mg BID PO Last administered on 07/07/16 19:15; Start 06/16/16 at 09:00 Acetaminophen (Tylenol) 650 mg PRN Q4HRS PRN PO Pain/Fever Last administered on 06/19/16 15:06; Start 06/16/16 at 03:45 Aspirin (Aspirin Enteric Coated) 81 mg DAILY PO Last administered on 07/07/16 09:06; Start 06/16/16 at 09:00 Cyanocobalamin (Vitamin B-12) 1,000 mcg DAILY PO Last administered on 09:06; Start 06/16/16 at 09:00 Docusate Sodium (Colace) 100 mg DAILY PO Last administered on 07/07/16 09:06; Start 06/16/16 at 09:00 Finasteride (Proscar) 5 mg DAILY PO Last administered on 07/07/16 09:05; Start 06/16/16 at 09:00 Magnesium Hydroxide (Milk Of Magnesia) 400 mg PRN DAILY PRN PO CONSTIPATION Last administered on 06/28/16 06:22; Start 06/16/16 at 03:45 Tamsulosin HCl (Flomax) 0.4 mg QHS PO Last administered on 07/07/16 19:15; Start 06/16/16 at 21:00 Diltiazem HCl (Cardizem 24hr Cd) 120 mg DAILY PO Last administered on 09:06; Start 06/16/16 at 09:00 Multivitamins/ Minerals (I-Matthew) 1 tab DAILY PO Supplement Last administered on 07/07/16 09:06; Start 06/16/16 at 09:00 Ketotifen Fumarate (Zaditor) 1 drop BID OU Last administered on 06/17/16 09:54 ; Start 06/16/16 at 09:00; Stop 06/17/16 at 15:00; Status DC Fish Oil (Fish Oil) 1,000 mg DAILY PO Supplement Last administered on 07/07/16 09:05; Start 06/16/16 at 09:00 Thiamine HCl (Vitamin B-1) 250 mg BID PO supplement Last administered on 19:14; Start 06/16/16 at 09:00 Trazodone HCl (Desyrel) 50 mg PRN QHS PRN PO insomnia Last administered on 06/19 00:02; Start 06/16/16 at 21:00 Ketotifen Fumarate (Zaditor) 1 drop BID OU Last administered on 07/07/16 19:16 ; Start 06/17/16 at 15:00 Divalproex Sodium (Depakote) 375 mg BID PO Last administered on 06/19/16 10:18 ; Start 06/17/16 at 21:00; Stop 06/19/16 at 15:14; Status DC Levothyroxine Sodium (Synthroid) 25 mcg DAILY07 PO Last administered on 06:04; Start 06/18/16 at 07:00 Vitamin D (Vitamin D3) 50,000 unit WEEKLY PO Last administered on 07/07/16 09: 06; Start 06/24/16 at 09:00 Divalproex Sodium (Depakote) 500 mg BID PO Last administered on 06/23/16 10:15 ; Start 06/19/16 at 21:00; Stop 06/23/16 at 18:51; Status DC Risperidone (Risperdal) 0.125 mg BID PO Last administered on 06/24/16 08:51; Start 06/22/16 at 21:00; Stop 06/24/16 at 18:20; Status DC Divalproex Sodium (Depakote) 625 mg BID PO Last administered on 06/27/16 07:54 ; Start 06/23/16 at 21:00; Stop 06/27/16 at 18:26; Status DC Risperidone (Risperdal) 0.125 mg TID PO Last administered on 07/07/16 19:14; Start 06/24/16 at 18:30 Trazodone HCl (Desyrel) 25 mg TID PO Last administered on 06/28/16 12:57; Start 06/24/16 at 21:00; Stop 06/28/16 at 19:29; Status DC Divalproex Sodium (Depakote) 750 mg BID PO Last administered on 07/07/16 19:13 ; Start 06/27/16 at 21:00 Trazodone HCl (Desyrel) 25 mg TID@,,17 PO Last administered on 07/07/16 17 :08; Start 06/29/16 at 09:00 Cefpodoxime Proxetil (Vantin) 200 mg BID PO Last administered on 07/02/16 08: 50; Start 06/30/16 at 12:30; Stop 07/02/16 at 17:27; Status DC Doxycycline Hyclate (Vibra-Tab) 100 mg BID PO Last administered on 07/07/16 19 :14; Start 07/02/16 at 21:00 Lidocaine (Lidoderm) 1 patch DAILY TD Last administered on 07/07/16 09:12; Start 07/03/16 at 09:00 Active Scripts Active Reported Acetaminophen 325 Mg Tablet 650 Mg PO BID Trazodone Hcl 50 Mg Tablet 50 Mg PO HS Thiamine Hcl 250 Mg Tablet 250 Mg PO BID Quetiapine Fumarate 50 Mg Tablet 50 Mg PO DAILY Quetiapine Fumarate 100 Mg Tablet 100 Mg PO HS Milk Of Magnesia (Magnesium Hydroxide) 400 Mg/5 Ml Oral.susp 400 Mg PO PRN DAILY PRN Pataday (Olopatadine Hcl) 2.5 Ml Drops 1 Drop OU PRN PRN Diltiazem Hcl Tablet (Diltiazem Hcl) 60 Mg Tablet 120 Mg PO DAILY Chlorpromazine Hcl 25 Mg Tablet 12.5 Mg PO BID Lorazepam 1 Mg Tablet 1 Mg PO PRN Q4HRS PRN Proscar (Finasteride) 5 Mg Tablet 5 Mg PO DAILY Flomax (Tamsulosin Hcl) 0.4 Mg Cap.er.24h 0.4 Mg PO QHS [place] 3 Fish Oil Softgel ([place]-3 Fatty Acids/Fish Oil) 1 Each Capsule.dr 1,200 Mg PO DAILY Donepezil Hcl 10 Mg Tablet 10 Mg PO DAILY Depakote Er (Divalproex Sodium) 250 Mg Tab.er.24h 375 Mg PO BID Namenda (Memantine Hcl) 10 Mg Tablet 10 Mg PO BID Tylenol (Acetaminophen) 325 Mg Tablet 650 Mg PO PRN Q4HRS PRN Vitamin B-12 (Cyanocobalamin (Vitamin B-12)) 1,000 Mcg Tablet 1,000 Mcg PO DAILY Aspirin Ec (Aspirin) 81 Mg Tablet.dr 81 Mg PO DAILY Multivitamins (Multivitamin) 1 Each Tablet 1 Tab PO DAILY Docusate Sodium 100 Mg Capsule 100 Mg PO DAILY Diagnosis: Problems: (1) Agitation (2) Anxiety disorder (3) Dementia in Alzheimer's disease with delusions (4) Dementia in Alzheimer's disease with depression (5) Dementia, vascular, with delusions (6) Dementia, vascular, with depression (7) Impulse control disorder NATASHA LAIRD MD Jul 07, 2016 20:57
[2016-07-07] MEDS: traZODone 50 MG TABLET. PO PRN (21:00)
[2016-07-07] MEDS: LORAZEPAM 1 MG TABLET. PO PRN (21:00)
[2016-07-08] MEDS: LEVOTHYROXINE 25 MCG TABLET. PO SCH (05:40)
[2016-07-08 07:10] VITALS: BP_SYST 132; BP_SYST 158; BP_DIAS 68; BP_DIAS 93
[2016-07-08] MEDS: KETOTIFEN FUMARATE 0.025% OPHT SOLUTION BOTTLE. OU SCH ×2 (09:44→19:27)
[2016-07-08] MEDS: DILTIAZEM HCL 120 MG CAP.ER.24H PO SCH (09:45)
[2016-07-08] MEDS: DONEPEZIL HCL 10 MG TABLET PO SCH (09:45)
[2016-07-08] MEDS: ASPIRIN ENTERIC COATED 81 MG TABLET.DR. PO SCH (09:45)
[2016-07-08] MEDS: DOCUSATE SODIUM 100 MG CAPSULE PO SCH (09:45)
[2016-07-08] MEDS: DIVALPROEX SODIUM 250 MG TABLET.DR. PO SCH ×2 (09:46→19:24)
[2016-07-08] MEDS: traZODone 50 MG TABLET. PO SCH ×4 (09:46→19:25)
[2016-07-08] MEDS: OMEGA-3 FATTY ACIDS/FISH OIL 1,000 MG CAPSULE. PO SCH (09:46)
[2016-07-08] MEDS: risperiDONE 0.25 MG TABLET. PO SCH ×3 (09:47→19:26)
[2016-07-08] MEDS: MULTIVITAMIN I-VITE TABLET. PO SCH (09:47)
[2016-07-08] MEDS: MEMANTINE 10 MG TABLET. PO SCH ×2 (09:47→19:25)
[2016-07-08] MEDS: FINASTERIDE 5 MG TABLET PO SCH (09:47)
[2016-07-08] MEDS: ACETAMINOPHEN 325 MG TABLET PO SCH ×2 (09:48→19:26)
[2016-07-08] MEDS: DOXYCYCLINE HYCLATE 100 MG TABLET PO SCH ×2 (09:49→19:26)
[2016-07-08] MEDS: THIAMINE 100 MG TABLET. PO SCH ×2 (09:49→19:26)
[2016-07-08] MEDS: LIDOCAINE (700MG/PATCH) PATCH. TD SCH (09:50)
[2016-07-08] MEDS: CYANOCOBALAMIN (VITAMIN B-12) 1,000 MCG TABLET. PO SCH (09:50)
[2016-07-08 16:11] VITALS: BP 136/90
[2016-07-08] MEDS: TAMSULOSIN 0.4 MG CAP.ER.24H. PO SCH (19:25)
[2016-07-08] MEDS: LORAZEPAM 1 MG TABLET. PO PRN (19:33)
--- NOTE | 2016-07-08 20:09 | PN ---
DATE: 07/07/2016 PSYCHIATRIC PROGRESS NOTE This is late entry of 07/07/2016, covers elements not covered in my initial note. SUBJECTIVE: Overall, the patient remains confused, but has not been aggressive. He is a little more verbal, appropriate, smiling as I met with him, remains on doxycycline for his MRSA, UTI. Asking for his rings and his watch. REVIEW OF SYSTEMS: No CV, , pulmonary, eye, ENT system symptoms on review. Reliability poor. MENTAL STATUS EXAMINATION: Oriented to himself. Insight, judgment, recent and remote memory, attention, concentration, fund of knowledge poor, consistent with his diagnosis. LABORATORY DATA: Reviewed. IMPRESSION: Unchanged from initial note. PLAN: Continue current psychotropics mentioned in my initial note. Make further adjustments as clinically indicated. MAN Josh LAIRD MD DR: ONEYDA/ozzie JOB#: [id number] / [id number]
--- NOTE | 2016-07-08 20:55 | PDOC ---
Exam Ajke Demential Exam: Ajke Note: Please also refer to the separate dictated note~for this date of service dictated separately.~Patient seen individually. Discussed the patient with Nursing staff reviewed the chart.~Reviewed interim history and current functioning. Reviewed vital signs,~Labs/ Radiology~and current medications noted below. Continue current treatment with the changes noted in the dictated addendum note Assessment: Vital Signs: Vital Signs Date Time Temp Pulse Resp B/P Pulse Ox O2 Delivery O2 Flow Rate FiO2 07/08/16 16:11 97.0 93 20 136/90 100 07/05/16 06:13 Room Air I&O Intake and Output 07/08/16 07:00 Intake Total 720 ml Balance 720 ml Intake Oral 720 ml # Voids 2 Current Medications: Meds: Current Medications Acetaminophen (Tylenol) 650 mg PRN Q6HRS PRN PO PAIN / TEMP; Start 06/16/16 at 03:15; Status Cancel Multi-Ingredient Ointment (Analgesic [place]) 1 sajan PRN QID PRN TP MUSCLE PAIN Last administered on 06/26/16 21:01; Start 06/16/16 at 03:15 Al Hydroxide/Mg Hydroxide (Mylanta Plus Xs) 15 ml PRN AFTMEALHC PRN PO DYSPEPSIA; Start 06/16/16 at 03:15 Magnesium Hydroxide (Milk Of Magnesia) 2,400 mg PRN QHS PRN PO CONSTIPATION; Start 06/16/16 at 03:15 Chlorpromazine HCl (Thorazine) 12.5 mg BID PO Last administered on 06/22/16 08: 31; Start 06/16/16 at 09:00; Stop 06/22/16 at 18:21; Status DC Divalproex Sodium (Depakote Er) 375 mg BID PO Last administered on 06/17/16 09 :55; Start 06/16/16 at 09:00; Stop 06/17/16 at 15:02; Status DC Donepezil HCl (Aricept) 10 mg DAILY PO Last administered on 07/08/16 09:45; Start 06/16/16 at 09:00 Lorazepam (Ativan) 1 mg PRN Q4HRS PRN PO ANXIETY / AGITATION Last administered on 07/08/16 19:33; Start 06/16/16 at 03:45 Memantine (Namenda) 10 mg BID PO Last administered on 07/08/16 19:25; Start at 09:00 Quetiapine Fumarate (SEROquel) 50 mg DAILY PO Last administered on 06/23/16 10: 18; Start 06/16/16 at 09:00; Stop 06/23/16 at 18:50; Status DC Quetiapine Fumarate (SEROquel) 100 mg HS PO Last administered on 06/22/16 20:12 ; Start 06/16/16 at 21:00; Stop 06/23/16 at 18:50; Status DC Trazodone HCl (Desyrel) 50 mg HS PO Last administered on 07/08/16 19:25; Start 06/16/16 at 21:00 Acetaminophen (Tylenol) 650 mg BID PO Last administered on 07/08/16 19:26; Start 06/16/16 at 09:00 Acetaminophen (Tylenol) 650 mg PRN Q4HRS PRN PO Pain/Fever Last administered on 06/19/16 15:06; Start 06/16/16 at 03:45 Aspirin (Aspirin Enteric Coated) 81 mg DAILY PO Last administered on 07/08/16 09:45; Start 06/16/16 at 09:00 Cyanocobalamin (Vitamin B-12) 1,000 mcg DAILY PO Last administered on 09:50; Start 06/16/16 at 09:00 Docusate Sodium (Colace) 100 mg DAILY PO Last administered on 07/08/16 09:45; Start 06/16/16 at 09:00 Finasteride (Proscar) 5 mg DAILY PO Last administered on 07/08/16 09:47; Start 06/16/16 at 09:00 Magnesium Hydroxide (Milk Of Magnesia) 400 mg PRN DAILY PRN PO CONSTIPATION Last administered on 06/28/16 06:22; Start 06/16/16 at 03:45 Tamsulosin HCl (Flomax) 0.4 mg QHS PO Last administered on 07/08/16 19:25; Start 06/16/16 at 21:00 Diltiazem HCl (Cardizem 24hr Cd) 120 mg DAILY PO Last administered on 09:45; Start 06/16/16 at 09:00 Multivitamins/ Minerals (I-Matthew) 1 tab DAILY PO Supplement Last administered on 07/08/16 09:47; Start 06/16/16 at 09:00 Ketotifen Fumarate (Zaditor) 1 drop BID OU Last administered on 06/17/16 09:54 ; Start 06/16/16 at 09:00; Stop 06/17/16 at 15:00; Status DC Fish Oil (Fish Oil) 1,000 mg DAILY PO Supplement Last administered on 07/08/16 09:46; Start 06/16/16 at 09:00 Thiamine HCl (Vitamin B-1) 250 mg BID PO supplement Last administered on 19:26; Start 06/16/16 at 09:00 Trazodone HCl (Desyrel) 50 mg PRN QHS PRN PO insomnia Last administered on 07/07 21:00; Start 06/16/16 at 21:00 Ketotifen Fumarate (Zaditor) 1 drop BID OU Last administered on 07/08/16 19:27 ; Start 06/17/16 at 15:00 Divalproex Sodium (Depakote) 375 mg BID PO Last administered on 06/19/16 10:18 ; Start 06/17/16 at 21:00; Stop 06/19/16 at 15:14; Status DC Levothyroxine Sodium (Synthroid) 25 mcg DAILY07 PO Last administered on 05:40; Start 06/18/16 at 07:00 Vitamin D (Vitamin D3) 50,000 unit WEEKLY PO Last administered on 07/07/16 09: 06; Start 06/24/16 at 09:00 Divalproex Sodium (Depakote) 500 mg BID PO Last administered on 06/23/16 10:15 ; Start 06/19/16 at 21:00; Stop 06/23/16 at 18:51; Status DC Risperidone (Risperdal) 0.125 mg BID PO Last administered on 06/24/16 08:51; Start 06/22/16 at 21:00; Stop 06/24/16 at 18:20; Status DC Divalproex Sodium (Depakote) 625 mg BID PO Last administered on 06/27/16 07:54 ; Start 06/23/16 at 21:00; Stop 06/27/16 at 18:26; Status DC Risperidone (Risperdal) 0.125 mg TID PO Last administered on 07/08/16 19:26; Start 06/24/16 at 18:30 Trazodone HCl (Desyrel) 25 mg TID PO Last administered on 06/28/16 12:57; Start 06/24/16 at 21:00; Stop 06/28/16 at 19:29; Status DC Divalproex Sodium (Depakote) 750 mg BID PO Last administered on 07/08/16 19:24 ; Start 06/27/16 at 21:00 Trazodone HCl (Desyrel) 25 mg TID@, PO Last administered on 07/08/16 18 :21; Start 06/29/16 at 09:00 Cefpodoxime Proxetil (Vantin) 200 mg BID PO Last administered on 07/02/16 08: 50; Start 06/30/16 at 12:30; Stop 07/02/16 at 17:27; Status DC Doxycycline Hyclate (Vibra-Tab) 100 mg BID PO Last administered on 07/08/16 19 :26; Start 07/02/16 at 21:00 Lidocaine (Lidoderm) 1 patch DAILY TD Last administered on 07/08/16 09:50; Start 07/03/16 at 09:00 Active Scripts Active Reported Acetaminophen 325 Mg Tablet 650 Mg PO BID Trazodone Hcl 50 Mg Tablet 50 Mg PO HS Thiamine Hcl 250 Mg Tablet 250 Mg PO BID Quetiapine Fumarate 50 Mg Tablet 50 Mg PO DAILY Quetiapine Fumarate 100 Mg Tablet 100 Mg PO HS Milk Of Magnesia (Magnesium Hydroxide) 400 Mg/5 Ml Oral.susp 400 Mg PO PRN DAILY PRN Pataday (Olopatadine Hcl) 2.5 Ml Drops 1 Drop OU PRN PRN Diltiazem Hcl Tablet (Diltiazem Hcl) 60 Mg Tablet 120 Mg PO DAILY Chlorpromazine Hcl 25 Mg Tablet 12.5 Mg PO BID Lorazepam 1 Mg Tablet 1 Mg PO PRN Q4HRS PRN Proscar (Finasteride) 5 Mg Tablet 5 Mg PO DAILY Flomax (Tamsulosin Hcl) 0.4 Mg Cap.er.24h 0.4 Mg PO QHS [place] 3 Fish Oil Softgel ([place]-3 Fatty Acids/Fish Oil) 1 Each Capsule.dr 1,200 Mg PO DAILY Donepezil Hcl 10 Mg Tablet 10 Mg PO DAILY Depakote Er (Divalproex Sodium) 250 Mg Tab.er.24h 375 Mg PO BID Namenda (Memantine Hcl) 10 Mg Tablet 10 Mg PO BID Tylenol (Acetaminophen) 325 Mg Tablet 650 Mg PO PRN Q4HRS PRN Vitamin B-12 (Cyanocobalamin (Vitamin B-12)) 1,000 Mcg Tablet 1,000 Mcg PO DAILY Aspirin Ec (Aspirin) 81 Mg Tablet.dr 81 Mg PO DAILY Multivitamins (Multivitamin) 1 Each Tablet 1 Tab PO DAILY Docusate Sodium 100 Mg Capsule 100 Mg PO DAILY Diagnosis: Problems: (1) Agitation (2) Anxiety disorder (3) Dementia in Alzheimer's disease with delusions (4) Dementia in Alzheimer's disease with depression (5) Dementia, vascular, with delusions (6) Dementia, vascular, with depression (7) Impulse control disorder NATASHA LAIRD MD Jul 08, 2016 20:55
[2016-07-09 05:39] VITALS: BP 120/67
[2016-07-09] MEDS: LEVOTHYROXINE 25 MCG TABLET. PO SCH (05:46)
[2016-07-09] MEDS: FINASTERIDE 5 MG TABLET PO SCH (08:40)
[2016-07-09] MEDS: DOXYCYCLINE HYCLATE 100 MG TABLET PO SCH ×2 (08:40→19:30)
[2016-07-09] MEDS: ACETAMINOPHEN 325 MG TABLET PO SCH ×2 (08:40→19:30)
[2016-07-09] MEDS: CYANOCOBALAMIN (VITAMIN B-12) 1,000 MCG TABLET. PO SCH (08:40)
[2016-07-09] MEDS: DOCUSATE SODIUM 100 MG CAPSULE PO SCH (08:41)
[2016-07-09] MEDS: MEMANTINE 10 MG TABLET. PO SCH ×2 (08:41→19:29)
[2016-07-09] MEDS: MULTIVITAMIN I-VITE TABLET. PO SCH (08:41)
[2016-07-09] MEDS: DONEPEZIL HCL 10 MG TABLET PO SCH (08:41)
[2016-07-09] MEDS: ASPIRIN ENTERIC COATED 81 MG TABLET.DR. PO SCH (08:41)
[2016-07-09] MEDS: risperiDONE 0.25 MG TABLET. PO SCH ×3 (08:41→19:31)
[2016-07-09] MEDS: traZODone 50 MG TABLET. PO SCH ×5 (08:41→19:30)
[2016-07-09] MEDS: OMEGA-3 FATTY ACIDS/FISH OIL 1,000 MG CAPSULE. PO SCH (08:42)
[2016-07-09] MEDS: THIAMINE 100 MG TABLET. PO SCH ×2 (08:42→19:28)
[2016-07-09] MEDS: DIVALPROEX SODIUM 250 MG TABLET.DR. PO SCH ×2 (08:42→19:29)
[2016-07-09] MEDS: KETOTIFEN FUMARATE 0.025% OPHT SOLUTION BOTTLE. OU SCH ×2 (08:44→19:33)
[2016-07-09] MEDS: DILTIAZEM HCL 120 MG CAP.ER.24H PO SCH (08:45)
[2016-07-09] MEDS: LIDOCAINE (700MG/PATCH) PATCH. TD SCH (08:45)
[2016-07-09 15:30] VITALS: BP 108/76
[2016-07-09] MEDS: TAMSULOSIN 0.4 MG CAP.ER.24H. PO SCH (19:29)
--- NOTE | 2016-07-09 21:00 | PDOC ---
Exam Jake Demential Exam: Jake Note: Please also refer to the separate dictated note~for this date of service dictated separately.~Patient seen individually. Discussed the patient with Nursing staff reviewed the chart.~Reviewed interim history and current functioning. Reviewed vital signs,~Labs/ Radiology~and current medications noted below. Continue current treatment with the changes noted in the dictated addendum note Assessment: Vital Signs: Vital Signs Date Time Temp Pulse Resp B/P Pulse Ox O2 Delivery O2 Flow Rate FiO2 07/09/16 15:30 97.8 94 18 108/76 92 07/05/16 06:13 Room Air I&O Intake and Output 07/09/16 07:00 Intake Total 960 ml Balance 960 ml Intake Oral 960 ml Current Medications: Meds: Current Medications Acetaminophen (Tylenol) 650 mg PRN Q6HRS PRN PO PAIN / TEMP; Start 06/16/16 at 03:15; Status Cancel Multi-Ingredient Ointment (Analgesic [place]) 1 sajan PRN QID PRN TP MUSCLE PAIN Last administered on 06/26/16 21:01; Start 06/16/16 at 03:15 Al Hydroxide/Mg Hydroxide (Mylanta Plus Xs) 15 ml PRN AFTMEALHC PRN PO DYSPEPSIA; Start 06/16/16 at 03:15 Magnesium Hydroxide (Milk Of Magnesia) 2,400 mg PRN QHS PRN PO CONSTIPATION; Start 06/16/16 at 03:15 Chlorpromazine HCl (Thorazine) 12.5 mg BID PO Last administered on 06/22/16 08: 31; Start 06/16/16 at 09:00; Stop 06/22/16 at 18:21; Status DC Divalproex Sodium (Depakote Er) 375 mg BID PO Last administered on 06/17/16 09 :55; Start 06/16/16 at 09:00; Stop 06/17/16 at 15:02; Status DC Donepezil HCl (Aricept) 10 mg DAILY PO Last administered on 07/09/16 08:41; Start 06/16/16 at 09:00 Lorazepam (Ativan) 1 mg PRN Q4HRS PRN PO ANXIETY / AGITATION Last administered on 07/08/16 19:33; Start 06/16/16 at 03:45 Memantine (Namenda) 10 mg BID PO Last administered on 07/09/16 19:29; Start at 09:00 Quetiapine Fumarate (SEROquel) 50 mg DAILY PO Last administered on 06/23/16 10: 18; Start 06/16/16 at 09:00; Stop 06/23/16 at 18:50; Status DC Quetiapine Fumarate (SEROquel) 100 mg HS PO Last administered on 06/22/16 20:12 ; Start 06/16/16 at 21:00; Stop 06/23/16 at 18:50; Status DC Trazodone HCl (Desyrel) 50 mg HS PO Last administered on 07/09/16 19:30; Start 06/16/16 at 21:00 Acetaminophen (Tylenol) 650 mg BID PO Last administered on 07/09/16 19:30; Start 06/16/16 at 09:00 Acetaminophen (Tylenol) 650 mg PRN Q4HRS PRN PO Pain/Fever Last administered on 06/19/16 15:06; Start 06/16/16 at 03:45 Aspirin (Aspirin Enteric Coated) 81 mg DAILY PO Last administered on 07/09/16 08:41; Start 06/16/16 at 09:00 Cyanocobalamin (Vitamin B-12) 1,000 mcg DAILY PO Last administered on 08:40; Start 06/16/16 at 09:00 Docusate Sodium (Colace) 100 mg DAILY PO Last administered on 07/09/16 08:41; Start 06/16/16 at 09:00 Finasteride (Proscar) 5 mg DAILY PO Last administered on 07/09/16 08:40; Start 06/16/16 at 09:00 Magnesium Hydroxide (Milk Of Magnesia) 400 mg PRN DAILY PRN PO CONSTIPATION Last administered on 06/28/16 06:22; Start 06/16/16 at 03:45 Tamsulosin HCl (Flomax) 0.4 mg QHS PO Last administered on 07/09/16 19:29; Start 06/16/16 at 21:00 Diltiazem HCl (Cardizem 24hr Cd) 120 mg DAILY PO Last administered on 08:45; Start 06/16/16 at 09:00 Multivitamins/ Minerals (I-Matthew) 1 tab DAILY PO Supplement Last administered on 07/09/16 08:41; Start 06/16/16 at 09:00 Ketotifen Fumarate (Zaditor) 1 drop BID OU Last administered on 06/17/16 09:54 ; Start 06/16/16 at 09:00; Stop 06/17/16 at 15:00; Status DC Fish Oil (Fish Oil) 1,000 mg DAILY PO Supplement Last administered on 07/09/16 08:42; Start 06/16/16 at 09:00 Thiamine HCl (Vitamin B-1) 250 mg BID PO supplement Last administered on 19:28; Start 06/16/16 at 09:00 Trazodone HCl (Desyrel) 50 mg PRN QHS PRN PO insomnia Last administered on 07/07 21:00; Start 06/16/16 at 21:00 Ketotifen Fumarate (Zaditor) 1 drop BID OU Last administered on 07/09/16 19:33 ; Start 06/17/16 at 15:00 Divalproex Sodium (Depakote) 375 mg BID PO Last administered on 06/19/16 10:18 ; Start 06/17/16 at 21:00; Stop 06/19/16 at 15:14; Status DC Levothyroxine Sodium (Synthroid) 25 mcg DAILY07 PO Last administered on 05:46; Start 06/18/16 at 07:00 Vitamin D (Vitamin D3) 50,000 unit WEEKLY PO Last administered on 07/07/16 09: 06; Start 06/24/16 at 09:00 Divalproex Sodium (Depakote) 500 mg BID PO Last administered on 06/23/16 10:15 ; Start 06/19/16 at 21:00; Stop 06/23/16 at 18:51; Status DC Risperidone (Risperdal) 0.125 mg BID PO Last administered on 06/24/16 08:51; Start 06/22/16 at 21:00; Stop 06/24/16 at 18:20; Status DC Divalproex Sodium (Depakote) 625 mg BID PO Last administered on 06/27/16 07:54 ; Start 06/23/16 at 21:00; Stop 06/27/16 at 18:26; Status DC Risperidone (Risperdal) 0.125 mg TID PO Last administered on 07/09/16 19:31; Start 06/24/16 at 18:30 Trazodone HCl (Desyrel) 25 mg TID PO Last administered on 06/28/16 12:57; Start 06/24/16 at 21:00; Stop 06/28/16 at 19:29; Status DC Divalproex Sodium (Depakote) 750 mg BID PO Last administered on 07/09/16 19:29 ; Start 06/27/16 at 21:00 Trazodone HCl (Desyrel) 25 mg TID@,, PO Last administered on 07/09/16 17 :20; Start 06/29/16 at 09:00 Cefpodoxime Proxetil (Vantin) 200 mg BID PO Last administered on 07/02/16 08: 50; Start 06/30/16 at 12:30; Stop 07/02/16 at 17:27; Status DC Doxycycline Hyclate (Vibra-Tab) 100 mg BID PO Last administered on 07/09/16 19 :30; Start 07/02/16 at 21:00 Lidocaine (Lidoderm) 1 patch DAILY TD Last administered on 07/09/16 08:45; Start 07/03/16 at 09:00 Active Scripts Active Reported Acetaminophen 325 Mg Tablet 650 Mg PO BID Trazodone Hcl 50 Mg Tablet 50 Mg PO HS Thiamine Hcl 250 Mg Tablet 250 Mg PO BID Quetiapine Fumarate 50 Mg Tablet 50 Mg PO DAILY Quetiapine Fumarate 100 Mg Tablet 100 Mg PO HS Milk Of Magnesia (Magnesium Hydroxide) 400 Mg/5 Ml Oral.susp 400 Mg PO PRN DAILY PRN Pataday (Olopatadine Hcl) 2.5 Ml Drops 1 Drop OU PRN PRN Diltiazem Hcl Tablet (Diltiazem Hcl) 60 Mg Tablet 120 Mg PO DAILY Chlorpromazine Hcl 25 Mg Tablet 12.5 Mg PO BID Lorazepam 1 Mg Tablet 1 Mg PO PRN Q4HRS PRN Proscar (Finasteride) 5 Mg Tablet 5 Mg PO DAILY Flomax (Tamsulosin Hcl) 0.4 Mg Cap.er.24h 0.4 Mg PO QHS [place] 3 Fish Oil Softgel ([place]-3 Fatty Acids/Fish Oil) 1 Each Capsule.dr 1,200 Mg PO DAILY Donepezil Hcl 10 Mg Tablet 10 Mg PO DAILY Depakote Er (Divalproex Sodium) 250 Mg Tab.er.24h 375 Mg PO BID Namenda (Memantine Hcl) 10 Mg Tablet 10 Mg PO BID Tylenol (Acetaminophen) 325 Mg Tablet 650 Mg PO PRN Q4HRS PRN Vitamin B-12 (Cyanocobalamin (Vitamin B-12)) 1,000 Mcg Tablet 1,000 Mcg PO DAILY Aspirin Ec (Aspirin) 81 Mg Tablet.dr 81 Mg PO DAILY Multivitamins (Multivitamin) 1 Each Tablet 1 Tab PO DAILY Docusate Sodium 100 Mg Capsule 100 Mg PO DAILY Diagnosis: Problems: (1) Agitation (2) Anxiety disorder (3) Dementia in Alzheimer's disease with delusions (4) Dementia in Alzheimer's disease with depression (5) Dementia, vascular, with delusions (6) Dementia, vascular, with depression (7) Impulse control disorder NATASHA LAIRD MD Jul 09, 2016 21:00
[2016-07-10 06:30] VITALS: BP 124/65
[2016-07-10] MEDS: LEVOTHYROXINE 25 MCG TABLET. PO SCH (06:34)
[2016-07-10] MEDS ORDERED: BENZTROPINE MESYLATE 1 MG TABLET PO ONE (08:00)
[2016-07-10] MEDS: THIAMINE 100 MG TABLET. PO SCH ×2 (08:30→19:51)
[2016-07-10] MEDS: MULTIVITAMIN I-VITE TABLET. PO SCH (08:30)
[2016-07-10] MEDS: OMEGA-3 FATTY ACIDS/FISH OIL 1,000 MG CAPSULE. PO SCH (08:31)
[2016-07-10] MEDS: DOCUSATE SODIUM 100 MG CAPSULE PO SCH (08:31)
[2016-07-10] MEDS: DOXYCYCLINE HYCLATE 100 MG TABLET PO SCH ×2 (08:32→19:50)
[2016-07-10] MEDS: ACETAMINOPHEN 325 MG TABLET PO SCH ×2 (08:32→19:49)
[2016-07-10] MEDS: FINASTERIDE 5 MG TABLET PO SCH (08:32)
[2016-07-10] MEDS: ASPIRIN ENTERIC COATED 81 MG TABLET.DR. PO SCH (08:34)
[2016-07-10] MEDS: DIVALPROEX SODIUM 250 MG TABLET.DR. PO SCH ×2 (08:34→19:49)
[2016-07-10] MEDS: MEMANTINE 10 MG TABLET. PO SCH ×2 (08:34→19:51)
[2016-07-10] MEDS: risperiDONE 0.25 MG TABLET. PO SCH ×3 (08:34→19:50)
[2016-07-10] MEDS: traZODone 50 MG TABLET. PO SCH ×4 (08:35→19:49)
[2016-07-10] MEDS: CYANOCOBALAMIN (VITAMIN B-12) 1,000 MCG TABLET. PO SCH (08:36)
[2016-07-10] MEDS: DONEPEZIL HCL 10 MG TABLET PO SCH (08:36)
[2016-07-10] MEDS: LIDOCAINE (700MG/PATCH) PATCH. TD SCH (08:37)
[2016-07-10] MEDS: DILTIAZEM HCL 120 MG CAP.ER.24H PO SCH (09:00)
[2016-07-10] MEDS: KETOTIFEN FUMARATE 0.025% OPHT SOLUTION BOTTLE. OU SCH ×2 (09:00→20:03)
[2016-07-10 15:22] VITALS: BP 141/86
[2016-07-10] MEDS: TAMSULOSIN 0.4 MG CAP.ER.24H. PO SCH (19:50)
[2016-07-10] MEDS: BENZTROPINE MESYLATE 1 MG TABLET PO SCH (20:01)
--- NOTE | 2016-07-10 20:53 | PDOC ---
Exam Jake Demential Exam: Jake Note: Please also refer to the separate dictated note~for this date of service dictated separately.~Patient seen individually. Discussed the patient with Nursing staff reviewed the chart.~Reviewed interim history and current functioning. Reviewed vital signs,~Labs/ Radiology~and current medications noted below. Continue current treatment with the changes noted in the dictated addendum note Assessment: Vital Signs: Vital Signs Date Time Temp Pulse Resp B/P Pulse Ox O2 Delivery O2 Flow Rate FiO2 07/10/16 15:22 97.4 86 18 141/86 96 07/05/16 06:13 Room Air I&O Intake and Output 07/10/16 07:00 Intake Total 840 ml Balance 840 ml Intake Oral 840 ml # Voids 3 Current Medications: Meds: Current Medications Acetaminophen (Tylenol) 650 mg PRN Q6HRS PRN PO PAIN / TEMP; Start 06/16/16 at 03:15; Status Cancel Multi-Ingredient Ointment (Analgesic [place]) 1 sajan PRN QID PRN TP MUSCLE PAIN Last administered on 06/26/16 21:01; Start 06/16/16 at 03:15 Al Hydroxide/Mg Hydroxide (Mylanta Plus Xs) 15 ml PRN AFTMEALHC PRN PO DYSPEPSIA; Start 06/16/16 at 03:15 Magnesium Hydroxide (Milk Of Magnesia) 2,400 mg PRN QHS PRN PO CONSTIPATION; Start 06/16/16 at 03:15 Chlorpromazine HCl (Thorazine) 12.5 mg BID PO Last administered on 06/22/16 08: 31; Start 06/16/16 at 09:00; Stop 06/22/16 at 18:21; Status DC Divalproex Sodium (Depakote Er) 375 mg BID PO Last administered on 06/17/16 09 :55; Start 06/16/16 at 09:00; Stop 06/17/16 at 15:02; Status DC Donepezil HCl (Aricept) 10 mg DAILY PO Last administered on 07/10/16 08:36; Start 06/16/16 at 09:00 Lorazepam (Ativan) 1 mg PRN Q4HRS PRN PO ANXIETY / AGITATION Last administered on 07/08/16 19:33; Start 06/16/16 at 03:45 Memantine (Namenda) 10 mg BID PO Last administered on 07/10/16 19:51; Start at 09:00 Quetiapine Fumarate (SEROquel) 50 mg DAILY PO Last administered on 06/23/16 10: 18; Start 06/16/16 at 09:00; Stop 06/23/16 at 18:50; Status DC Quetiapine Fumarate (SEROquel) 100 mg HS PO Last administered on 06/22/16 20:12 ; Start 06/16/16 at 21:00; Stop 06/23/16 at 18:50; Status DC Trazodone HCl (Desyrel) 50 mg HS PO Last administered on 07/10/16 19:49; Start 06/16/16 at 21:00 Acetaminophen (Tylenol) 650 mg BID PO Last administered on 07/10/16 19:49; Start 06/16/16 at 09:00 Acetaminophen (Tylenol) 650 mg PRN Q4HRS PRN PO Pain/Fever Last administered on 06/19/16 15:06; Start 06/16/16 at 03:45 Aspirin (Aspirin Enteric Coated) 81 mg DAILY PO Last administered on 07/10/16 08:34; Start 06/16/16 at 09:00 Cyanocobalamin (Vitamin B-12) 1,000 mcg DAILY PO Last administered on 08:36; Start 06/16/16 at 09:00 Docusate Sodium (Colace) 100 mg DAILY PO Last administered on 07/10/16 08:31; Start 06/16/16 at 09:00 Finasteride (Proscar) 5 mg DAILY PO Last administered on 07/10/16 08:32; Start 06/16/16 at 09:00 Magnesium Hydroxide (Milk Of Magnesia) 400 mg PRN DAILY PRN PO CONSTIPATION Last administered on 06/28/16 06:22; Start 06/16/16 at 03:45 Tamsulosin HCl (Flomax) 0.4 mg QHS PO Last administered on 07/10/16 19:50; Start 06/16/16 at 21:00 Diltiazem HCl (Cardizem 24hr Cd) 120 mg DAILY PO Last administered on 09:00; Start 06/16/16 at 09:00 Multivitamins/ Minerals (I-Matthew) 1 tab DAILY PO Supplement Last administered on 07/10/16 08:30; Start 06/16/16 at 09:00 Ketotifen Fumarate (Zaditor) 1 drop BID OU Last administered on 06/17/16 09:54 ; Start 06/16/16 at 09:00; Stop 06/17/16 at 15:00; Status DC Fish Oil (Fish Oil) 1,000 mg DAILY PO Supplement Last administered on 07/10/16 08:31; Start 06/16/16 at 09:00 Thiamine HCl (Vitamin B-1) 250 mg BID PO supplement Last administered on 19:51; Start 06/16/16 at 09:00 Trazodone HCl (Desyrel) 50 mg PRN QHS PRN PO insomnia Last administered on 07/07 21:00; Start 06/16/16 at 21:00 Ketotifen Fumarate (Zaditor) 1 drop BID OU Last administered on 07/10/16 20:03 ; Start 06/17/16 at 15:00 Divalproex Sodium (Depakote) 375 mg BID PO Last administered on 06/19/16 10:18 ; Start 06/17/16 at 21:00; Stop 06/19/16 at 15:14; Status DC Levothyroxine Sodium (Synthroid) 25 mcg DAILY07 PO Last administered on 06:34; Start 06/18/16 at 07:00 Vitamin D (Vitamin D3) 50,000 unit WEEKLY PO Last administered on 07/07/16 09: 06; Start 06/24/16 at 09:00 Divalproex Sodium (Depakote) 500 mg BID PO Last administered on 06/23/16 10:15 ; Start 06/19/16 at 21:00; Stop 06/23/16 at 18:51; Status DC Risperidone (Risperdal) 0.125 mg BID PO Last administered on 06/24/16 08:51; Start 06/22/16 at 21:00; Stop 06/24/16 at 18:20; Status DC Divalproex Sodium (Depakote) 625 mg BID PO Last administered on 06/27/16 07:54 ; Start 06/23/16 at 21:00; Stop 06/27/16 at 18:26; Status DC Risperidone (Risperdal) 0.125 mg TID PO Last administered on 07/10/16 14:19; Start 06/24/16 at 18:30; Stop 07/10/16 at 19:14; Status DC Trazodone HCl (Desyrel) 25 mg TID PO Last administered on 06/28/16 12:57; Start 06/24/16 at 21:00; Stop 06/28/16 at 19:29; Status DC Divalproex Sodium (Depakote) 750 mg BID PO Last administered on 07/10/16 19:49 ; Start 06/27/16 at 21:00 Trazodone HCl (Desyrel) 25 mg TID@,, PO Last administered on 07/10/16 18 :30; Start 06/29/16 at 09:00 Cefpodoxime Proxetil (Vantin) 200 mg BID PO Last administered on 07/02/16 08: 50; Start 06/30/16 at 12:30; Stop 07/02/16 at 17:27; Status DC Doxycycline Hyclate (Vibra-Tab) 100 mg BID PO Last administered on 07/10/16 19 :50; Start 07/02/16 at 21:00 Lidocaine (Lidoderm) 1 patch DAILY TD Last administered on 07/10/16 08:37; Start 07/03/16 at 09:00 Benztropine Mesylate (Cogentin) 1 mg 1X ONCE PO Last administered on 08:31; Start 07/10/16 at 08:00; Stop 07/10/16 at 08:05; Status DC Benztropine Mesylate (Cogentin) 1 mg HS PO Last administered on 07/10/16 20:01 ; Start 07/10/16 at 21:00 Risperidone (Risperdal) 0.125 mg BID PO Last administered on 07/10/16 19:50; Start 07/10/16 at 21:00 Active Scripts Active Reported Acetaminophen 325 Mg Tablet 650 Mg PO BID Trazodone Hcl 50 Mg Tablet 50 Mg PO HS Thiamine Hcl 250 Mg Tablet 250 Mg PO BID Quetiapine Fumarate 50 Mg Tablet 50 Mg PO DAILY Quetiapine Fumarate 100 Mg Tablet 100 Mg PO HS Milk Of Magnesia (Magnesium Hydroxide) 400 Mg/5 Ml Oral.susp 400 Mg PO PRN DAILY PRN Pataday (Olopatadine Hcl) 2.5 Ml Drops 1 Drop OU PRN PRN Diltiazem Hcl Tablet (Diltiazem Hcl) 60 Mg Tablet 120 Mg PO DAILY Chlorpromazine Hcl 25 Mg Tablet 12.5 Mg PO BID Lorazepam 1 Mg Tablet 1 Mg PO PRN Q4HRS PRN Proscar (Finasteride) 5 Mg Tablet 5 Mg PO DAILY Flomax (Tamsulosin Hcl) 0.4 Mg Cap.er.24h 0.4 Mg PO QHS [place] 3 Fish Oil Softgel ([place]-3 Fatty Acids/Fish Oil) 1 Each Capsule.dr 1,200 Mg PO DAILY Donepezil Hcl 10 Mg Tablet 10 Mg PO DAILY Depakote Er (Divalproex Sodium) 250 Mg Tab.er.24h 375 Mg PO BID Namenda (Memantine Hcl) 10 Mg Tablet 10 Mg PO BID Tylenol (Acetaminophen) 325 Mg Tablet 650 Mg PO PRN Q4HRS PRN Vitamin B-12 (Cyanocobalamin (Vitamin B-12)) 1,000 Mcg Tablet 1,000 Mcg PO DAILY Aspirin Ec (Aspirin) 81 Mg Tablet.dr 81 Mg PO DAILY Multivitamins (Multivitamin) 1 Each Tablet 1 Tab PO DAILY Docusate Sodium 100 Mg Capsule 100 Mg PO DAILY Diagnosis: Problems: (1) Agitation (2) Anxiety disorder (3) Dementia in Alzheimer's disease with delusions (4) Dementia in Alzheimer's disease with depression (5) Dementia, vascular, with delusions (6) Dementia, vascular, with depression (7) Impulse control disorder NATASHA LAIRD MD Jul 10, 2016 20:53
--- NOTE | 2016-07-10 22:06 | PN ---
DATE: 07/08/2016 PSYCHIATRIC PROGRESS NOTE This is late entry of 07/08/2016, covers elements not covered in my initial note. SUBJECTIVE: Per nursing report, the patient has been agitated if he does not get double portions. He received trazodone at 9:00 p.m., then Ativan consequent of agitation, then did better after a snack. REVIEW OF SYSTEMS: No CV, , pulmonary, eye, ENT system symptoms on review. Reliability poor. MENTAL STATUS EXAMINATION: Oriented to himself. Insight, judgment, recent and remote memory, attention, concentration, fund of knowledge poor, consistent with his diagnosis mentioned in my initial note. PLAN: Continue current psychotropics. He does have a festinating gait and some nystagmus of his eyes, may consider adding Cogentin or reducing Risperdal, though the dosage of Risperdal is fairly low anyway. May also consider Neurology consult if indicated. MAN Josh LAIRD MD DR: [email or web address]/ozzie JOB#: [id number] / [id number]
--- NOTE | 2016-07-10 22:10 | PN ---
DATE: 07/09/2016 PSYCHIATRIC PROGRESS NOTE This is late entry of 07/09/2016, covers elements not covered in my initial note. SUBJECTIVE: The patient was staffed at treatment team meeting on morning of 07/09/2016, seen individually on evening of 07/09/2016, reviewed the patient's history at length, some EPS symptoms, but dosage of Risperdal is quite low, but valproic acid level is 60 on 06/30/2016, appetite 100%, sleeping about 7 hours. REVIEW OF SYSTEMS: No CV, , pulmonary, eye, ENT system symptoms on review. Reliability poor. MENTAL STATUS EXAMINATION: Oriented to himself. Insight, judgment, recent and remote memory, attention, concentration, fund of knowledge poor, consistent with his diagnosis mentioned in my initial note. PLAN: Continue current psychotropics, adjust further as clinically indicated. Valproic acid level is 60, therapeutic. MAN Josh LAIRD MD DR: ONEYDA/ozzie JOB#: [id number] / [id number]
[2016-07-11] MEDS: LEVOTHYROXINE 25 MCG TABLET. PO SCH (06:08)
[2016-07-11 06:24] VITALS: BP 127/76
[2016-07-11] MEDS: FINASTERIDE 5 MG TABLET PO SCH (09:13)
[2016-07-11] MEDS: CYANOCOBALAMIN (VITAMIN B-12) 1,000 MCG TABLET. PO SCH (09:13)
[2016-07-11] MEDS: MULTIVITAMIN I-VITE TABLET. PO SCH (09:14)
[2016-07-11] MEDS: OMEGA-3 FATTY ACIDS/FISH OIL 1,000 MG CAPSULE. PO SCH (09:14)
[2016-07-11] MEDS: THIAMINE 100 MG TABLET. PO SCH ×2 (09:14→20:11)
[2016-07-11] MEDS: DIVALPROEX SODIUM 250 MG TABLET.DR. PO SCH ×2 (09:14→20:10)
[2016-07-11] MEDS: MEMANTINE 10 MG TABLET. PO SCH ×2 (09:15→20:11)
[2016-07-11] MEDS: DOXYCYCLINE HYCLATE 100 MG TABLET PO SCH ×2 (09:15→20:11)
[2016-07-11] MEDS: ASPIRIN ENTERIC COATED 81 MG TABLET.DR. PO SCH (09:15)
[2016-07-11] MEDS: ACETAMINOPHEN 325 MG TABLET PO SCH ×2 (09:15→20:11)
[2016-07-11] MEDS: DONEPEZIL HCL 10 MG TABLET PO SCH (09:15)
[2016-07-11] MEDS: traZODone 50 MG TABLET. PO SCH ×4 (09:15→20:10)
[2016-07-11] MEDS: DOCUSATE SODIUM 100 MG CAPSULE PO SCH (09:15)
[2016-07-11] MEDS: risperiDONE 0.25 MG TABLET. PO SCH ×2 (09:15→20:11)
[2016-07-11] MEDS: DILTIAZEM HCL 120 MG CAP.ER.24H PO SCH (09:16)
[2016-07-11] MEDS: KETOTIFEN FUMARATE 0.025% OPHT SOLUTION BOTTLE. OU SCH ×2 (09:17→20:12)
[2016-07-11] MEDS: LIDOCAINE (700MG/PATCH) PATCH. TD SCH (09:17)
[2016-07-11] MEDS: LORAZEPAM 1 MG TABLET. PO PRN (09:21)
[2016-07-11 16:07] VITALS: BP 123/80
[2016-07-11] MEDS: TAMSULOSIN 0.4 MG CAP.ER.24H. PO SCH (20:10)
[2016-07-11] MEDS: BENZTROPINE MESYLATE 1 MG TABLET PO SCH (20:11)
--- NOTE | 2016-07-11 21:03 | PDOC ---
Exam Jake Demential Exam: Jake Note: Please also refer to the separate dictated note~for this date of service dictated separately.~Patient seen individually. Discussed the patient with Nursing staff reviewed the chart.~Reviewed interim history and current functioning. Reviewed vital signs,~Labs/ Radiology~and current medications noted below. Continue current treatment with the changes noted in the dictated addendum note Assessment: Vital Signs: Vital Signs Date Time Temp Pulse Resp B/P Pulse Ox O2 Delivery O2 Flow Rate FiO2 07/11/16 16:07 96.8 98 18 123/80 100 07/11/16 06:24 Room Air I&O Intake and Output 07/11/16 07:00 Intake Total 960 ml Balance 960 ml Intake Oral 960 ml Current Medications: Meds: Current Medications Acetaminophen (Tylenol) 650 mg PRN Q6HRS PRN PO PAIN / TEMP; Start 06/16/16 at 03:15; Status Cancel Multi-Ingredient Ointment (Analgesic [place]) 1 sajan PRN QID PRN TP MUSCLE PAIN Last administered on 06/26/16 21:01; Start 06/16/16 at 03:15 Al Hydroxide/Mg Hydroxide (Mylanta Plus Xs) 15 ml PRN AFTMEALHC PRN PO DYSPEPSIA; Start 06/16/16 at 03:15 Magnesium Hydroxide (Milk Of Magnesia) 2,400 mg PRN QHS PRN PO CONSTIPATION; Start 06/16/16 at 03:15 Chlorpromazine HCl (Thorazine) 12.5 mg BID PO Last administered on 06/22/16 08: 31; Start 06/16/16 at 09:00; Stop 06/22/16 at 18:21; Status DC Divalproex Sodium (Depakote Er) 375 mg BID PO Last administered on 06/17/16 09 :55; Start 06/16/16 at 09:00; Stop 06/17/16 at 15:02; Status DC Donepezil HCl (Aricept) 10 mg DAILY PO Last administered on 07/11/16 09:15; Start 06/16/16 at 09:00 Lorazepam (Ativan) 1 mg PRN Q4HRS PRN PO ANXIETY / AGITATION Last administered on 07/11/16 09:21; Start 06/16/16 at 03:45 Memantine (Namenda) 10 mg BID PO Last administered on 07/11/16 20:11; Start at 09:00 Quetiapine Fumarate (SEROquel) 50 mg DAILY PO Last administered on 06/23/16 10: 18; Start 06/16/16 at 09:00; Stop 06/23/16 at 18:50; Status DC Quetiapine Fumarate (SEROquel) 100 mg HS PO Last administered on 06/22/16 20:12 ; Start 06/16/16 at 21:00; Stop 06/23/16 at 18:50; Status DC Trazodone HCl (Desyrel) 50 mg HS PO Last administered on 07/11/16 20:10; Start 06/16/16 at 21:00 Acetaminophen (Tylenol) 650 mg BID PO Last administered on 07/11/16 20:11; Start 06/16/16 at 09:00 Acetaminophen (Tylenol) 650 mg PRN Q4HRS PRN PO Pain/Fever Last administered on 06/19/16 15:06; Start 06/16/16 at 03:45 Aspirin (Aspirin Enteric Coated) 81 mg DAILY PO Last administered on 07/11/16 09:15; Start 06/16/16 at 09:00 Cyanocobalamin (Vitamin B-12) 1,000 mcg DAILY PO Last administered on 09:13; Start 06/16/16 at 09:00 Docusate Sodium (Colace) 100 mg DAILY PO Last administered on 07/11/16 09:15; Start 06/16/16 at 09:00 Finasteride (Proscar) 5 mg DAILY PO Last administered on 07/11/16 09:13; Start 06/16/16 at 09:00 Magnesium Hydroxide (Milk Of Magnesia) 400 mg PRN DAILY PRN PO CONSTIPATION Last administered on 06/28/16 06:22; Start 06/16/16 at 03:45 Tamsulosin HCl (Flomax) 0.4 mg QHS PO Last administered on 07/11/16 20:10; Start 06/16/16 at 21:00 Diltiazem HCl (Cardizem 24hr Cd) 120 mg DAILY PO Last administered on 09:16; Start 06/16/16 at 09:00 Multivitamins/ Minerals (I-Matthew) 1 tab DAILY PO Supplement Last administered on 07/11/16 09:14; Start 06/16/16 at 09:00 Ketotifen Fumarate (Zaditor) 1 drop BID OU Last administered on 06/17/16 09:54 ; Start 06/16/16 at 09:00; Stop 06/17/16 at 15:00; Status DC Fish Oil (Fish Oil) 1,000 mg DAILY PO Supplement Last administered on 07/11/16 09:14; Start 06/16/16 at 09:00 Thiamine HCl (Vitamin B-1) 250 mg BID PO supplement Last administered on 20:11; Start 06/16/16 at 09:00 Trazodone HCl (Desyrel) 50 mg PRN QHS PRN PO insomnia Last administered on 07/07 21:00; Start 06/16/16 at 21:00 Ketotifen Fumarate (Zaditor) 1 drop BID OU Last administered on 07/11/16 20:12 ; Start 06/17/16 at 15:00 Divalproex Sodium (Depakote) 375 mg BID PO Last administered on 06/19/16 10:18 ; Start 06/17/16 at 21:00; Stop 06/19/16 at 15:14; Status DC Levothyroxine Sodium (Synthroid) 25 mcg DAILY07 PO Last administered on 06:08; Start 06/18/16 at 07:00 Vitamin D (Vitamin D3) 50,000 unit WEEKLY PO Last administered on 07/07/16 09: 06; Start 06/24/16 at 09:00 Divalproex Sodium (Depakote) 500 mg BID PO Last administered on 06/23/16 10:15 ; Start 06/19/16 at 21:00; Stop 06/23/16 at 18:51; Status DC Risperidone (Risperdal) 0.125 mg BID PO Last administered on 06/24/16 08:51; Start 06/22/16 at 21:00; Stop 06/24/16 at 18:20; Status DC Divalproex Sodium (Depakote) 625 mg BID PO Last administered on 06/27/16 07:54 ; Start 06/23/16 at 21:00; Stop 06/27/16 at 18:26; Status DC Risperidone (Risperdal) 0.125 mg TID PO Last administered on 07/10/16 14:19; Start 06/24/16 at 18:30; Stop 07/10/16 at 19:14; Status DC Trazodone HCl (Desyrel) 25 mg TID PO Last administered on 06/28/16 12:57; Start 06/24/16 at 21:00; Stop 06/28/16 at 19:29; Status DC Divalproex Sodium (Depakote) 750 mg BID PO Last administered on 07/11/16 20:10 ; Start 06/27/16 at 21:00 Trazodone HCl (Desyrel) 25 mg TID@, PO Last administered on 07/11/16 17 :16; Start 06/29/16 at 09:00 Cefpodoxime Proxetil (Vantin) 200 mg BID PO Last administered on 07/02/16 08: 50; Start 06/30/16 at 12:30; Stop 07/02/16 at 17:27; Status DC Doxycycline Hyclate (Vibra-Tab) 100 mg BID PO Last administered on 07/11/16 20 :11; Start 07/02/16 at 21:00 Lidocaine (Lidoderm) 1 patch DAILY TD Last administered on 07/11/16 09:17; Start 07/03/16 at 09:00 Benztropine Mesylate (Cogentin) 1 mg 1X ONCE PO Last administered on 08:31; Start 07/10/16 at 08:00; Stop 07/10/16 at 08:05; Status DC Benztropine Mesylate (Cogentin) 1 mg HS PO Last administered on 07/11/16 20:11 ; Start 07/10/16 at 21:00 Risperidone (Risperdal) 0.125 mg BID PO Last administered on 07/11/16 20:11; Start 07/10/16 at 21:00 Active Scripts Active Reported Acetaminophen 325 Mg Tablet 650 Mg PO BID Trazodone Hcl 50 Mg Tablet 50 Mg PO HS Thiamine Hcl 250 Mg Tablet 250 Mg PO BID Quetiapine Fumarate 50 Mg Tablet 50 Mg PO DAILY Quetiapine Fumarate 100 Mg Tablet 100 Mg PO HS Milk Of Magnesia (Magnesium Hydroxide) 400 Mg/5 Ml Oral.susp 400 Mg PO PRN DAILY PRN Pataday (Olopatadine Hcl) 2.5 Ml Drops 1 Drop OU PRN PRN Diltiazem Hcl Tablet (Diltiazem Hcl) 60 Mg Tablet 120 Mg PO DAILY Chlorpromazine Hcl 25 Mg Tablet 12.5 Mg PO BID Lorazepam 1 Mg Tablet 1 Mg PO PRN Q4HRS PRN Proscar (Finasteride) 5 Mg Tablet 5 Mg PO DAILY Flomax (Tamsulosin Hcl) 0.4 Mg Cap.er.24h 0.4 Mg PO QHS [place] 3 Fish Oil Softgel ([place]-3 Fatty Acids/Fish Oil) 1 Each Capsule.dr 1,200 Mg PO DAILY Donepezil Hcl 10 Mg Tablet 10 Mg PO DAILY Depakote Er (Divalproex Sodium) 250 Mg Tab.er.24h 375 Mg PO BID Namenda (Memantine Hcl) 10 Mg Tablet 10 Mg PO BID Tylenol (Acetaminophen) 325 Mg Tablet 650 Mg PO PRN Q4HRS PRN Vitamin B-12 (Cyanocobalamin (Vitamin B-12)) 1,000 Mcg Tablet 1,000 Mcg PO DAILY Aspirin Ec (Aspirin) 81 Mg Tablet.dr 81 Mg PO DAILY Multivitamins (Multivitamin) 1 Each Tablet 1 Tab PO DAILY Docusate Sodium 100 Mg Capsule 100 Mg PO DAILY Diagnosis: Problems: (1) Agitation (2) Anxiety disorder (3) Dementia in Alzheimer's disease with delusions (4) Dementia in Alzheimer's disease with depression (5) Dementia, vascular, with delusions (6) Dementia, vascular, with depression (7) Impulse control disorder NATASHA LAIRD MD Jul 11, 2016 21:03
[2016-07-12] MEDS: LEVOTHYROXINE 25 MCG TABLET. PO SCH (06:36)
[2016-07-12 06:56] VITALS: BP 150/85
[2016-07-12 08:17] LABS: BASO # 0.1 x10^3/uL (0.0-0.2); BASO % 1 % (0-3); EOS # 0.2 x10^3/uL (0.0-0.7); EOS % 4 % (0-3); HEMATOCRIT 42.6 % (39.0-53.0); HEMOGLOBIN 13.8 g/dL (13.0-17.5); LYMPH # 1.8 x10^3/uL (1.0-4.8); LYMPH % 27 % (24-48); MEAN CORPUSCULAR HEMOGLOBIN 30 pg (25-35); MEAN CORPUSCULAR HGB CONC 32 g/dL (31-37); MEAN CORPUSCULAR VOLUME 92 fL (79-100); MONO # 0.6 x10^3/uL (0.0-1.1); MONO % 9 % (0-9); NEUT # 3.8 x10^3uL (1.8-7.7); NEUT % 59 % (31-73); PLATELET COUNT 97 x10^3/uL (140-400); RED BLOOD COUNT 4.62 x10^6/uL (4.30-5.70); WHITE BLOOD COUNT 6.5 x10^3/uL (4.0-11.0)
[2016-07-12 08:23] LABS: ALBUMIN 3.3 g/dL (3.4-5.0); ALBUMIN/GLOBULIN RATIO 0.9 (1.0-1.7); ALK PHOS 74 U/L (46-116); ALT (SGPT) 23 U/L (16-63); ANION GAP 6 (6-14); AST (SGOT) 12 U/L (15-37); BLOOD UREA NITROGEN 14 mg/dL (8-26); BUN/CREATININE RATIO 12 (6-20); CALCIUM 8.7 mg/dL (8.5-10.1); CARBON DIOXIDE 32 mmol/L (21-32); CHLORIDE 107 mmol/L (98-107); CREATININE 1.2 mg/dL (0.7-1.3); GFR 59.2; GLUCOSE 79 mg/dL (70-99); MAGNESIUM 2.2 mg/dL (1.8-2.4); POTASSIUM 3.7 mmol/L (3.5-5.1); SODIUM 145 mmol/L (136-145); TOTAL BILIRUBIN 0.6 mg/dL (0.2-1.0)
[2016-07-12 08:24] LABS: VAL ACID 66 mcg/mL (50-100)
--- NOTE | 2016-07-12 08:56 | PN ---
DATE: 07/10/2016 PSYCHIATRIC PROGRESS NOTE This is a late entry of 07/10/2016 covers elements not covered in my initial note. SUBJECTIVE: The patient continues to have some shuffling gait with extrapyramidal symptoms. Nursing staff called me as an emergency. We initiated Cogentin and reduced the Risperdal from 0.125 mg t.i.d. to b.i.d. He has been watching Western movies. No sexually inappropriate behaviors noted. REVIEW OF SYSTEMS: No CV, , pulmonary, eye, ENT system symptoms on review. Reliability poor. MENTAL STATUS EXAM: Oriented to himself. Insight, judgment, recent and remote memory, attention, concentration, fund of knowledge poor, consistent with his diagnosis. Verbal responses monosyllabic. LABORATORY DATA: Reviewed. IMPRESSION: Unchanged from initial note. PLAN: Reduce the Risperdal and start Cogentin. Rest unchanged as before. MAN Josh LAIRD MD DR: ONEYDA/ozzie JOB#: [id number] / [id number]
--- NOTE | 2016-07-12 08:59 | PN ---
DATE: 07/11/2016 PSYCHIATRIC PROGRESS NOTE This is a late entry of 07/11/2016 covers elements not covered in my initial note. Overall, the patient has refused to shower for about 5 days. Received Ativan p.r.n. later took his shower on 07/11/2016. Daughter has found a placement in [place]. He has had some inappropriate verbal behaviors towards female nursing staff, but redirects. Perhaps some of this is a little more prominent since we reduced the Risperdal. REVIEW OF SYSTEMS: No CV, , pulmonary, eye, ENT system symptoms on review. Gait is still somewhat festinating. Neurology consult has been requested as well as reducing the Risperdal starting Cogentin. MENTAL STATUS EXAM: Oriented to himself. Insight, judgment, recent and remote memory, attention, concentration, fund of knowledge poor, consistent with his diagnosis not very verbal. LABORATORY DATA: Reviewed. IMPRESSION: Unchanged from initial note. PLAN: Continue current psychotropics with changes noted above. NATASHA LAIRD MD DR: ONEYDA/ozzie JOB#: [id number] / [id number]
[2016-07-12] MEDS: MULTIVITAMIN I-VITE TABLET. PO SCH (09:52)
[2016-07-12] MEDS: DOCUSATE SODIUM 100 MG CAPSULE PO SCH (09:52)
[2016-07-12] MEDS: DILTIAZEM HCL 120 MG CAP.ER.24H PO SCH (09:52)
[2016-07-12] MEDS: traZODone 50 MG TABLET. PO SCH ×4 (09:53→20:11)
[2016-07-12] MEDS: DOXYCYCLINE HYCLATE 100 MG TABLET PO SCH (09:53)
[2016-07-12] MEDS: CYANOCOBALAMIN (VITAMIN B-12) 1,000 MCG TABLET. PO SCH (09:53)
[2016-07-12] MEDS: ASPIRIN ENTERIC COATED 81 MG TABLET.DR. PO SCH (09:53)
[2016-07-12] MEDS: DONEPEZIL HCL 10 MG TABLET PO SCH (09:53)
[2016-07-12] MEDS: OMEGA-3 FATTY ACIDS/FISH OIL 1,000 MG CAPSULE. PO SCH (09:53)
[2016-07-12] MEDS: risperiDONE 0.25 MG TABLET. PO SCH ×2 (09:53→20:12)
[2016-07-12] MEDS: FINASTERIDE 5 MG TABLET PO SCH (09:53)
[2016-07-12] MEDS: THIAMINE 100 MG TABLET. PO SCH ×2 (09:54→20:11)
[2016-07-12] MEDS: DIVALPROEX SODIUM 250 MG TABLET.DR. PO SCH ×2 (09:54→20:11)
[2016-07-12] MEDS: ACETAMINOPHEN 325 MG TABLET PO SCH ×2 (09:54→20:12)
[2016-07-12] MEDS: MEMANTINE 10 MG TABLET. PO SCH ×2 (09:54→20:12)
[2016-07-12] MEDS: LIDOCAINE (700MG/PATCH) PATCH. TD SCH (09:55)
[2016-07-12] MEDS: KETOTIFEN FUMARATE 0.025% OPHT SOLUTION BOTTLE. OU SCH ×2 (09:56→20:13)
[2016-07-12 17:00] VITALS: BP 112/60
[2016-07-12] MEDS: BENZTROPINE MESYLATE 1 MG TABLET PO SCH (20:11)
[2016-07-12] MEDS: TAMSULOSIN 0.4 MG CAP.ER.24H. PO SCH (20:11)
--- NOTE | 2016-07-12 20:53 | PDOC ---
Exam Jake Demential Exam: Jake Note: Please also refer to the separate dictated note~for this date of service dictated separately.~Patient seen individually. Discussed the patient with Nursing staff reviewed the chart.~Reviewed interim history and current functioning. Reviewed vital signs,~Labs/ Radiology~and current medications noted below. Continue current treatment with the changes noted in the dictated addendum note Assessment: Vital Signs: Vital Signs Date Time Temp Pulse Resp B/P Pulse Ox O2 Delivery O2 Flow Rate FiO2 07/12/16 17:00 97.9 85 20 112/60 99 07/11/16 06:24 Room Air I&O Intake and Output 07/12/16 07:00 Intake Total 600 ml Balance 600 ml Intake Oral 600 ml Labs: Laboratory Tests Test 07/12/16 07:25 White Blood Count 6.5x10^3/uL (4.0-11.0) Red Blood Count 4.62x10^6/uL (4.30-5.70) Hemoglobin 13.8g/dL (13.0-17.5) Hematocrit 42.6% (39.0-53.0) Mean Corpuscular Volume 92fL (79-100) Mean Corpuscular Hemoglobin 30pg (25-35) Mean Corpuscular Hemoglobin Concent 32g/dL (31-37) Red Cell Distribution Width 15.0% (11.5-14.5) H Platelet Count 97x10^3/uL (140-400) L Neutrophils (%) (Auto) 59% (31-73) Lymphocytes (%) (Auto) 27% (24-48) Monocytes (%) (Auto) 9% (0-9) Eosinophils (%) (Auto) 4% (0-3) H Basophils (%) (Auto) 1% (0-3) Neutrophils # (Auto) 3.8x10^3uL (1.8-7.7) Lymphocytes # (Auto) 1.8x10^3/uL (1.0-4.8) Monocytes # (Auto) 0.6x10^3/uL (0.0-1.1) Eosinophils # (Auto) 0.2x10^3/uL (0.0-0.7) Basophils # (Auto) 0.1x10^3/uL (0.0-0.2) Sodium Level 145mmol/L (136-145) Potassium Level 3.7mmol/L (3.5-5.1) Chloride Level 107mmol/L (98-107) Carbon Dioxide Level 32mmol/L (21-32) Anion Gap 6 (6-14) Blood Urea Nitrogen 14mg/dL (8-26) Creatinine 1.2mg/dL (0.7-1.3) Estimated GFR (Cockcroft-Gault) 59.2 BUN/Creatinine Ratio 12 (6-20) Glucose Level 79mg/dL (70-99) Calcium Level 8.7mg/dL (8.5-10.1) Magnesium Level 2.2mg/dL (1.8-2.4) Total Bilirubin 0.6mg/dL (0.2-1.0) Aspartate Amino Transferase (AST) 12U/L (15-37) L Alanine Aminotransferase (ALT) 23U/L (16-63) Alkaline Phosphatase 74U/L (46-116) Total Protein 7.0g/dL (6.4-8.2) Albumin 3.3g/dL (3.4-5.0) L Albumin/Globulin Ratio 0.9 (1.0-1.7) L Valproic Acid Level 66mcg/mL (50-100) Valproic Acid Last Dose Date 07/11/2016 Valproic Acid Last Dose Time 2100 Current Medications: Meds: Current Medications Acetaminophen (Tylenol) 650 mg PRN Q6HRS PRN PO PAIN / TEMP; Start 06/16/16 at 03:15; Status Cancel Multi-Ingredient Ointment (Analgesic [place]) 1 sajan PRN QID PRN TP MUSCLE PAIN Last administered on 06/26/16 21:01; Start 06/16/16 at 03:15 Al Hydroxide/Mg Hydroxide (Mylanta Plus Xs) 15 ml PRN AFTMEALHC PRN PO DYSPEPSIA; Start 06/16/16 at 03:15 Magnesium Hydroxide (Milk Of Magnesia) 2,400 mg PRN QHS PRN PO CONSTIPATION; Start 06/16/16 at 03:15 Chlorpromazine HCl (Thorazine) 12.5 mg BID PO Last administered on 06/22/16 08: 31; Start 06/16/16 at 09:00; Stop 06/22/16 at 18:21; Status DC Divalproex Sodium (Depakote Er) 375 mg BID PO Last administered on 06/17/16 09 :55; Start 06/16/16 at 09:00; Stop 06/17/16 at 15:02; Status DC Donepezil HCl (Aricept) 10 mg DAILY PO Last administered on 07/12/16 09:53; Start 06/16/16 at 09:00 Lorazepam (Ativan) 1 mg PRN Q4HRS PRN PO ANXIETY / AGITATION Last administered on 07/11/16 09:21; Start 06/16/16 at 03:45 Memantine (Namenda) 10 mg BID PO Last administered on 07/12/16 20:12; Start at 09:00 Quetiapine Fumarate (SEROquel) 50 mg DAILY PO Last administered on 06/23/16 10: 18; Start 06/16/16 at 09:00; Stop 06/23/16 at 18:50; Status DC Quetiapine Fumarate (SEROquel) 100 mg HS PO Last administered on 06/22/16 20:12 ; Start 06/16/16 at 21:00; Stop 06/23/16 at 18:50; Status DC Trazodone HCl (Desyrel) 50 mg HS PO Last administered on 07/12/16 20:11; Start 06/16/16 at 21:00 Acetaminophen (Tylenol) 650 mg BID PO Last administered on 07/12/16 20:12; Start 06/16/16 at 09:00 Acetaminophen (Tylenol) 650 mg PRN Q4HRS PRN PO Pain/Fever Last administered on 06/19/16 15:06; Start 06/16/16 at 03:45 Aspirin (Aspirin Enteric Coated) 81 mg DAILY PO Last administered on 07/12/16 09:53; Start 06/16/16 at 09:00 Cyanocobalamin (Vitamin B-12) 1,000 mcg DAILY PO Last administered on 09:53; Start 06/16/16 at 09:00 Docusate Sodium (Colace) 100 mg DAILY PO Last administered on 07/12/16 09:52; Start 06/16/16 at 09:00 Finasteride (Proscar) 5 mg DAILY PO Last administered on 07/12/16 09:53; Start 06/16/16 at 09:00 Magnesium Hydroxide (Milk Of Magnesia) 400 mg PRN DAILY PRN PO CONSTIPATION Last administered on 06/28/16 06:22; Start 06/16/16 at 03:45 Tamsulosin HCl (Flomax) 0.4 mg QHS PO Last administered on 07/12/16 20:11; Start 06/16/16 at 21:00 Diltiazem HCl (Cardizem 24hr Cd) 120 mg DAILY PO Last administered on 09:52; Start 06/16/16 at 09:00 Multivitamins/ Minerals (I-Matthew) 1 tab DAILY PO Supplement Last administered on 07/12/16 09:52; Start 06/16/16 at 09:00 Ketotifen Fumarate (Zaditor) 1 drop BID OU Last administered on 06/17/16 09:54 ; Start 06/16/16 at 09:00; Stop 06/17/16 at 15:00; Status DC Fish Oil (Fish Oil) 1,000 mg DAILY PO Supplement Last administered on 07/12/16 09:53; Start 06/16/16 at 09:00 Thiamine HCl (Vitamin B-1) 250 mg BID PO supplement Last administered on 20:11; Start 06/16/16 at 09:00 Trazodone HCl (Desyrel) 50 mg PRN QHS PRN PO insomnia Last administered on 07/07 21:00; Start 06/16/16 at 21:00 Ketotifen Fumarate (Zaditor) 1 drop BID OU Last administered on 07/12/16 20:13 ; Start 06/17/16 at 15:00 Divalproex Sodium (Depakote) 375 mg BID PO Last administered on 06/19/16 10:18 ; Start 06/17/16 at 21:00; Stop 06/19/16 at 15:14; Status DC Levothyroxine Sodium (Synthroid) 25 mcg DAILY07 PO Last administered on 06:36; Start 06/18/16 at 07:00 Vitamin D (Vitamin D3) 50,000 unit WEEKLY PO Last administered on 07/07/16 09: 06; Start 06/24/16 at 09:00 Divalproex Sodium (Depakote) 500 mg BID PO Last administered on 06/23/16 10:15 ; Start 06/19/16 at 21:00; Stop 06/23/16 at 18:51; Status DC Risperidone (Risperdal) 0.125 mg BID PO Last administered on 06/24/16 08:51; Start 06/22/16 at 21:00; Stop 06/24/16 at 18:20; Status DC Divalproex Sodium (Depakote) 625 mg BID PO Last administered on 06/27/16 07:54 ; Start 06/23/16 at 21:00; Stop 06/27/16 at 18:26; Status DC Risperidone (Risperdal) 0.125 mg TID PO Last administered on 07/10/16 14:19; Start 06/24/16 at 18:30; Stop 07/10/16 at 19:14; Status DC Trazodone HCl (Desyrel) 25 mg TID PO Last administered on 06/28/16 12:57; Start 06/24/16 at 21:00; Stop 06/28/16 at 19:29; Status DC Divalproex Sodium (Depakote) 750 mg BID PO Last administered on 07/12/16 20:11 ; Start 06/27/16 at 21:00 Trazodone HCl (Desyrel) 25 mg TID@ PO Last administered on 07/12/16 17 :30; Start 06/29/16 at 09:00 Cefpodoxime Proxetil (Vantin) 200 mg BID PO Last administered on 07/02/16 08: 50; Start 06/30/16 at 12:30; Stop 07/02/16 at 17:27; Status DC Doxycycline Hyclate (Vibra-Tab) 100 mg BID PO Last administered on 07/12/16 09 :53; Start 07/02/16 at 21:00; Stop 07/12/16 at 11:46; Status DC Lidocaine (Lidoderm) 1 patch DAILY TD Last administered on 07/12/16 09:55; Start 07/03/16 at 09:00 Benztropine Mesylate (Cogentin) 1 mg 1X ONCE PO Last administered on 08:31; Start 07/10/16 at 08:00; Stop 07/10/16 at 08:05; Status DC Benztropine Mesylate (Cogentin) 1 mg HS PO Last administered on 07/12/16 20:11 ; Start 07/10/16 at 21:00 Risperidone (Risperdal) 0.125 mg BID PO Last administered on 07/12/16 20:12; Start 07/10/16 at 21:00 Active Scripts Active Reported Acetaminophen 325 Mg Tablet 650 Mg PO BID Trazodone Hcl 50 Mg Tablet 50 Mg PO HS Thiamine Hcl 250 Mg Tablet 250 Mg PO BID Quetiapine Fumarate 50 Mg Tablet 50 Mg PO DAILY Quetiapine Fumarate 100 Mg Tablet 100 Mg PO HS Milk Of Magnesia (Magnesium Hydroxide) 400 Mg/5 Ml Oral.susp 400 Mg PO PRN DAILY PRN Pataday (Olopatadine Hcl) 2.5 Ml Drops 1 Drop OU PRN PRN Diltiazem Hcl Tablet (Diltiazem Hcl) 60 Mg Tablet 120 Mg PO DAILY Chlorpromazine Hcl 25 Mg Tablet 12.5 Mg PO BID Lorazepam 1 Mg Tablet 1 Mg PO PRN Q4HRS PRN Proscar (Finasteride) 5 Mg Tablet 5 Mg PO DAILY Flomax (Tamsulosin Hcl) 0.4 Mg Cap.er.24h 0.4 Mg PO QHS [place] 3 Fish Oil Softgel ([place]-3 Fatty Acids/Fish Oil) 1 Each Capsule. 1,200 Mg PO DAILY Donepezil Hcl 10 Mg Tablet 10 Mg PO DAILY Depakote Er (Divalproex Sodium) 250 Mg Tab.er.24h 375 Mg PO BID Namenda (Memantine Hcl) 10 Mg Tablet 10 Mg PO BID Tylenol (Acetaminophen) 325 Mg Tablet 650 Mg PO PRN Q4HRS PRN Vitamin B-12 (Cyanocobalamin (Vitamin B-12)) 1,000 Mcg Tablet 1,000 Mcg PO DAILY Aspirin Ec (Aspirin) 81 Mg Tablet. 81 Mg PO DAILY Multivitamins (Multivitamin) 1 Each Tablet 1 Tab PO DAILY Docusate Sodium 100 Mg Capsule 100 Mg PO DAILY Diagnosis: Problems: (1) Agitation (2) Anxiety disorder (3) Dementia in Alzheimer's disease with delusions (4) Dementia in Alzheimer's disease with depression (5) Dementia, vascular, with delusions (6) Dementia, vascular, with depression (7) Impulse control disorder NATASHA LAIRD MD Jul 12, 2016 20:53
[2016-07-13] MEDS: LEVOTHYROXINE 25 MCG TABLET. PO SCH (04:59)
[2016-07-13 06:50] VITALS: BP 135/52
[2016-07-13] MEDS: FINASTERIDE 5 MG TABLET PO SCH (10:18)
[2016-07-13] MEDS: MULTIVITAMIN I-VITE TABLET. PO SCH (10:18)
[2016-07-13] MEDS: DILTIAZEM HCL 120 MG CAP.ER.24H PO SCH (10:18)
[2016-07-13] MEDS: traZODone 50 MG TABLET. PO SCH ×4 (10:18→20:01)
[2016-07-13] MEDS: risperiDONE 0.25 MG TABLET. PO SCH ×2 (10:18→20:03)
[2016-07-13] MEDS: THIAMINE 100 MG TABLET. PO SCH ×2 (10:18→20:01)
[2016-07-13] MEDS: ASPIRIN ENTERIC COATED 81 MG TABLET.DR. PO SCH (10:18)
[2016-07-13] MEDS: DIVALPROEX SODIUM 250 MG TABLET.DR. PO SCH ×2 (10:18→20:00)
[2016-07-13] MEDS: OMEGA-3 FATTY ACIDS/FISH OIL 1,000 MG CAPSULE. PO SCH (10:19)
[2016-07-13] MEDS: ACETAMINOPHEN 325 MG TABLET PO SCH ×2 (10:19→20:01)
[2016-07-13] MEDS: CYANOCOBALAMIN (VITAMIN B-12) 1,000 MCG TABLET. PO SCH (10:19)
[2016-07-13] MEDS: LIDOCAINE (700MG/PATCH) PATCH. TD SCH (10:19)
[2016-07-13] MEDS: DOCUSATE SODIUM 100 MG CAPSULE PO SCH (10:19)
[2016-07-13] MEDS: MEMANTINE 10 MG TABLET. PO SCH ×2 (10:19→20:02)
[2016-07-13] MEDS: KETOTIFEN FUMARATE 0.025% OPHT SOLUTION BOTTLE. OU SCH ×2 (10:19→21:00)
[2016-07-13] MEDS: DONEPEZIL HCL 10 MG TABLET PO SCH (10:19)
--- NOTE | 2016-07-13 13:27 | PN ---
DATE: 07/12/2016 PSYCHIATRIC PROGRESS NOTE This is late entry of 07/12/2016, covers elements not covered in my initial note. SUBJECTIVE: Per nursing report, the patient has not been aggressive. He remains confused. Gait is shuffling. REVIEW OF SYSTEMS: No CV, , eye, ENT or pulmonary system symptoms on review. Reliability poor. MENTAL STATUS EXAMINATION: Oriented to himself. Insight, judgment, recent and remote memory, attention, concentration, fund of knowledge poor, consistent with his diagnosis mentioned in my initial note. PLAN: Continue current psychotropics. Risperdal was reduced to 0.125 mg b.i.d., Cogentin added. Maintain the rest as before. Transition to a lower level of care this week. MAN Josh LAIRD MD DR: ONEYDA/ozzie JOB#: [id number] / [id number]
[2016-07-13 16:28] VITALS: BP 102/62
[2016-07-13] MEDS: ACETAMINOPHEN 325 MG TABLET PO PRN (16:31)
[2016-07-13] MEDS: BENZTROPINE MESYLATE 1 MG TABLET PO SCH (20:01)
[2016-07-13] MEDS: TAMSULOSIN 0.4 MG CAP.ER.24H. PO SCH (20:02)
--- NOTE | 2016-07-13 23:40 | PDOC ---
Exam Jake Demential Exam: Jake Note: Please also refer to the separate dictated note~for this date of service dictated separately.~Patient seen individually. Discussed the patient with Nursing staff reviewed the chart.~Reviewed interim history and current functioning. Reviewed vital signs,~Labs/ Radiology~and current medications noted below. Continue current treatment with the changes noted in the dictated addendum note Assessment: Vital Signs: Vital Signs Date Time Temp Pulse Resp B/P Pulse Ox O2 Delivery O2 Flow Rate FiO2 07/13/16 16:28 98.2 88 18 102/62 94 07/11/16 06:24 Room Air I&O Intake and Output 07/13/16 07:00 Intake Total 840 ml Balance 840 ml Intake Oral 840 ml Current Medications: Meds: Current Medications Acetaminophen (Tylenol) 650 mg PRN Q6HRS PRN PO PAIN / TEMP; Start 06/16/16 at 03:15; Status Cancel Multi-Ingredient Ointment (Analgesic [place]) 1 sajan PRN QID PRN TP MUSCLE PAIN Last administered on 06/26/16 21:01; Start 06/16/16 at 03:15 Al Hydroxide/Mg Hydroxide (Mylanta Plus Xs) 15 ml PRN AFTMEALHC PRN PO DYSPEPSIA; Start 06/16/16 at 03:15 Magnesium Hydroxide (Milk Of Magnesia) 2,400 mg PRN QHS PRN PO CONSTIPATION; Start 06/16/16 at 03:15 Chlorpromazine HCl (Thorazine) 12.5 mg BID PO Last administered on 06/22/16 08: 31; Start 06/16/16 at 09:00; Stop 06/22/16 at 18:21; Status DC Divalproex Sodium (Depakote Er) 375 mg BID PO Last administered on 06/17/16 09 :55; Start 06/16/16 at 09:00; Stop 06/17/16 at 15:02; Status DC Donepezil HCl (Aricept) 10 mg DAILY PO Last administered on 07/13/16 10:19; Start 06/16/16 at 09:00 Lorazepam (Ativan) 1 mg PRN Q4HRS PRN PO ANXIETY / AGITATION Last administered on 07/11/16 09:21; Start 06/16/16 at 03:45 Memantine (Namenda) 10 mg BID PO Last administered on 07/13/16 20:02; Start at 09:00 Quetiapine Fumarate (SEROquel) 50 mg DAILY PO Last administered on 06/23/16 10: 18; Start 06/16/16 at 09:00; Stop 06/23/16 at 18:50; Status DC Quetiapine Fumarate (SEROquel) 100 mg HS PO Last administered on 06/22/16 20:12 ; Start 06/16/16 at 21:00; Stop 06/23/16 at 18:50; Status DC Trazodone HCl (Desyrel) 50 mg HS PO Last administered on 07/13/16 20:01; Start 06/16/16 at 21:00 Acetaminophen (Tylenol) 650 mg BID PO Last administered on 07/13/16 20:01; Start 06/16/16 at 09:00 Acetaminophen (Tylenol) 650 mg PRN Q4HRS PRN PO Pain/Fever Last administered on 07/13/16 16:31; Start 06/16/16 at 03:45 Aspirin (Aspirin Enteric Coated) 81 mg DAILY PO Last administered on 07/13/16 10:18; Start 06/16/16 at 09:00 Cyanocobalamin (Vitamin B-12) 1,000 mcg DAILY PO Last administered on 10:19; Start 06/16/16 at 09:00 Docusate Sodium (Colace) 100 mg DAILY PO Last administered on 07/13/16 10:19; Start 06/16/16 at 09:00 Finasteride (Proscar) 5 mg DAILY PO Last administered on 07/13/16 10:18; Start 06/16/16 at 09:00 Magnesium Hydroxide (Milk Of Magnesia) 400 mg PRN DAILY PRN PO CONSTIPATION Last administered on 06/28/16 06:22; Start 06/16/16 at 03:45 Tamsulosin HCl (Flomax) 0.4 mg QHS PO Last administered on 07/13/16 20:02; Start 06/16/16 at 21:00 Diltiazem HCl (Cardizem 24hr Cd) 120 mg DAILY PO Last administered on 10:18; Start 06/16/16 at 09:00 Multivitamins/ Minerals (I-Matthew) 1 tab DAILY PO Supplement Last administered on 07/13/16 10:18; Start 06/16/16 at 09:00 Ketotifen Fumarate (Zaditor) 1 drop BID OU Last administered on 06/17/16 09:54 ; Start 06/16/16 at 09:00; Stop 06/17/16 at 15:00; Status DC Fish Oil (Fish Oil) 1,000 mg DAILY PO Supplement Last administered on 07/13/16 10:19; Start 06/16/16 at 09:00 Thiamine HCl (Vitamin B-1) 250 mg BID PO supplement Last administered on 20:01; Start 06/16/16 at 09:00 Trazodone HCl (Desyrel) 50 mg PRN QHS PRN PO insomnia Last administered on 07/07 21:00; Start 06/16/16 at 21:00 Ketotifen Fumarate (Zaditor) 1 drop BID OU Last administered on 07/13/16 10:19 ; Start 06/17/16 at 15:00 Divalproex Sodium (Depakote) 375 mg BID PO Last administered on 06/19/16 10:18 ; Start 06/17/16 at 21:00; Stop 06/19/16 at 15:14; Status DC Levothyroxine Sodium (Synthroid) 25 mcg DAILY07 PO Last administered on 04:59; Start 06/18/16 at 07:00 Vitamin D (Vitamin D3) 50,000 unit WEEKLY PO Last administered on 07/07/16 09: 06; Start 06/24/16 at 09:00 Divalproex Sodium (Depakote) 500 mg BID PO Last administered on 06/23/16 10:15 ; Start 06/19/16 at 21:00; Stop 06/23/16 at 18:51; Status DC Risperidone (Risperdal) 0.125 mg BID PO Last administered on 06/24/16 08:51; Start 06/22/16 at 21:00; Stop 06/24/16 at 18:20; Status DC Divalproex Sodium (Depakote) 625 mg BID PO Last administered on 06/27/16 07:54 ; Start 06/23/16 at 21:00; Stop 06/27/16 at 18:26; Status DC Risperidone (Risperdal) 0.125 mg TID PO Last administered on 07/10/16 14:19; Start 06/24/16 at 18:30; Stop 07/10/16 at 19:14; Status DC Trazodone HCl (Desyrel) 25 mg TID PO Last administered on 06/28/16 12:57; Start 06/24/16 at 21:00; Stop 06/28/16 at 19:29; Status DC Divalproex Sodium (Depakote) 750 mg BID PO Last administered on 07/13/16 20:00 ; Start 06/27/16 at 21:00 Trazodone HCl (Desyrel) 25 mg TID@ PO Last administered on 07/13/16 16 :31; Start 06/29/16 at 09:00 Cefpodoxime Proxetil (Vantin) 200 mg BID PO Last administered on 07/02/16 08: 50; Start 06/30/16 at 12:30; Stop 07/02/16 at 17:27; Status DC Doxycycline Hyclate (Vibra-Tab) 100 mg BID PO Last administered on 07/12/16 09 :53; Start 07/02/16 at 21:00; Stop 07/12/16 at 11:46; Status DC Lidocaine (Lidoderm) 1 patch DAILY TD Last administered on 07/13/16 10:19; Start 07/03/16 at 09:00 Benztropine Mesylate (Cogentin) 1 mg 1X ONCE PO Last administered on 08:31; Start 07/10/16 at 08:00; Stop 07/10/16 at 08:05; Status DC Benztropine Mesylate (Cogentin) 1 mg HS PO Last administered on 07/13/16 20:01 ; Start 07/10/16 at 21:00 Risperidone (Risperdal) 0.125 mg BID PO Last administered on 07/13/16 20:03; Start 07/10/16 at 21:00 Active Scripts Active Reported Acetaminophen 325 Mg Tablet 650 Mg PO BID Trazodone Hcl 50 Mg Tablet 50 Mg PO HS Thiamine Hcl 250 Mg Tablet 250 Mg PO BID Quetiapine Fumarate 50 Mg Tablet 50 Mg PO DAILY Quetiapine Fumarate 100 Mg Tablet 100 Mg PO HS Milk Of Magnesia (Magnesium Hydroxide) 400 Mg/5 Ml Oral.susp 400 Mg PO PRN DAILY PRN Pataday (Olopatadine Hcl) 2.5 Ml Drops 1 Drop OU PRN PRN Diltiazem Hcl Tablet (Diltiazem Hcl) 60 Mg Tablet 120 Mg PO DAILY Chlorpromazine Hcl 25 Mg Tablet 12.5 Mg PO BID Lorazepam 1 Mg Tablet 1 Mg PO PRN Q4HRS PRN Proscar (Finasteride) 5 Mg Tablet 5 Mg PO DAILY Flomax (Tamsulosin Hcl) 0.4 Mg Cap.er.24h 0.4 Mg PO QHS [place] 3 Fish Oil Softgel ([place]-3 Fatty Acids/Fish Oil) 1 Each Capsule.dr 1,200 Mg PO DAILY Donepezil Hcl 10 Mg Tablet 10 Mg PO DAILY Depakote Er (Divalproex Sodium) 250 Mg Tab.er.24h 375 Mg PO BID Namenda (Memantine Hcl) 10 Mg Tablet 10 Mg PO BID Tylenol (Acetaminophen) 325 Mg Tablet 650 Mg PO PRN Q4HRS PRN Vitamin B-12 (Cyanocobalamin (Vitamin B-12)) 1,000 Mcg Tablet 1,000 Mcg PO DAILY Aspirin Ec (Aspirin) 81 Mg Tablet.dr 81 Mg PO DAILY Multivitamins (Multivitamin) 1 Each Tablet 1 Tab PO DAILY Docusate Sodium 100 Mg Capsule 100 Mg PO DAILY Diagnosis: Problems: (1) Agitation (2) Anxiety disorder (3) Dementia in Alzheimer's disease with delusions (4) Dementia in Alzheimer's disease with depression (5) Dementia, vascular, with delusions (6) Dementia, vascular, with depression (7) Impulse control disorder NATASHA LAIRD MD Jul 13, 2016 23:40
[2016-07-14] MEDS: LEVOTHYROXINE 25 MCG TABLET. PO SCH (05:22)
[2016-07-14 06:09] VITALS: BP 116/54
[2016-07-14] MEDS: MULTIVITAMIN I-VITE TABLET. PO SCH (09:00)
[2016-07-14] MEDS: FINASTERIDE 5 MG TABLET PO SCH (09:22)
[2016-07-14] MEDS: DILTIAZEM HCL 120 MG CAP.ER.24H PO SCH (09:23)
[2016-07-14] MEDS: DIVALPROEX SODIUM 250 MG TABLET.DR. PO SCH ×2 (09:23→19:52)
[2016-07-14] MEDS: risperiDONE 0.25 MG TABLET. PO SCH ×2 (09:23→19:54)
[2016-07-14] MEDS: DOCUSATE SODIUM 100 MG CAPSULE PO SCH (09:23)
[2016-07-14] MEDS: CYANOCOBALAMIN (VITAMIN B-12) 1,000 MCG TABLET. PO SCH (09:23)
[2016-07-14] MEDS: THIAMINE 100 MG TABLET. PO SCH ×2 (09:23→19:53)
[2016-07-14] MEDS: OMEGA-3 FATTY ACIDS/FISH OIL 1,000 MG CAPSULE. PO SCH (09:23)
[2016-07-14] MEDS: ACETAMINOPHEN 325 MG TABLET PO SCH ×2 (09:23→19:51)
[2016-07-14] MEDS: DONEPEZIL HCL 10 MG TABLET PO SCH (09:23)
[2016-07-14] MEDS: MEMANTINE 10 MG TABLET. PO SCH ×2 (09:24→19:54)
[2016-07-14] MEDS: ASPIRIN ENTERIC COATED 81 MG TABLET.DR. PO SCH (09:24)
[2016-07-14] MEDS: LIDOCAINE (700MG/PATCH) PATCH. TD SCH (09:25)
[2016-07-14] MEDS: KETOTIFEN FUMARATE 0.025% OPHT SOLUTION BOTTLE. OU SCH (09:25)
[2016-07-14] MEDS: traZODone 50 MG TABLET. PO SCH ×4 (09:30→19:54)
[2016-07-14 16:08] VITALS: BP 108/68
[2016-07-14] MEDS: BENZTROPINE MESYLATE 1 MG TABLET PO SCH (19:52)
[2016-07-14] MEDS: TAMSULOSIN 0.4 MG CAP.ER.24H. PO SCH (19:52)
--- NOTE | 2016-07-14 21:38 | PDOC ---
Exam Jake Demential Exam: Jake Note: Please also refer to the separate dictated note~for this date of service dictated separately.~Patient seen individually. Discussed the patient with Nursing staff reviewed the chart.~Reviewed interim history and current functioning. Reviewed vital signs,~Labs/ Radiology~and current medications noted below. Continue current treatment with the changes noted in the dictated addendum note Assessment: Vital Signs: Vital Signs Date Time Temp Pulse Resp B/P Pulse Ox O2 Delivery O2 Flow Rate FiO2 07/14/16 16:08 97.6 85 20 108/68 99 07/11/16 06:24 Room Air I&O Intake and Output 07/14/16 07:00 Intake Total 600 ml Balance 600 ml Intake Oral 600 ml # Bowel Movements 1 Current Medications: Meds: Current Medications Acetaminophen (Tylenol) 650 mg PRN Q6HRS PRN PO PAIN / TEMP; Start 06/16/16 at 03:15; Status Cancel Multi-Ingredient Ointment (Analgesic [place]) 1 sajan PRN QID PRN TP MUSCLE PAIN Last administered on 06/26/16 21:01; Start 06/16/16 at 03:15 Al Hydroxide/Mg Hydroxide (Mylanta Plus Xs) 15 ml PRN AFTMEALHC PRN PO DYSPEPSIA; Start 06/16/16 at 03:15 Magnesium Hydroxide (Milk Of Magnesia) 2,400 mg PRN QHS PRN PO CONSTIPATION; Start 06/16/16 at 03:15 Chlorpromazine HCl (Thorazine) 12.5 mg BID PO Last administered on 06/22/16 08: 31; Start 06/16/16 at 09:00; Stop 06/22/16 at 18:21; Status DC Divalproex Sodium (Depakote Er) 375 mg BID PO Last administered on 06/17/16 09 :55; Start 06/16/16 at 09:00; Stop 06/17/16 at 15:02; Status DC Donepezil HCl (Aricept) 10 mg DAILY PO Last administered on 07/14/16 09:23; Start 06/16/16 at 09:00 Lorazepam (Ativan) 1 mg PRN Q4HRS PRN PO ANXIETY / AGITATION Last administered on 07/11/16 09:21; Start 06/16/16 at 03:45 Memantine (Namenda) 10 mg BID PO Last administered on 07/14/16 19:54; Start at 09:00 Quetiapine Fumarate (SEROquel) 50 mg DAILY PO Last administered on 06/23/16 10: 18; Start 06/16/16 at 09:00; Stop 06/23/16 at 18:50; Status DC Quetiapine Fumarate (SEROquel) 100 mg HS PO Last administered on 06/22/16 20:12 ; Start 06/16/16 at 21:00; Stop 06/23/16 at 18:50; Status DC Trazodone HCl (Desyrel) 50 mg HS PO Last administered on 07/14/16 19:54; Start 06/16/16 at 21:00 Acetaminophen (Tylenol) 650 mg BID PO Last administered on 07/14/16 19:51; Start 06/16/16 at 09:00 Acetaminophen (Tylenol) 650 mg PRN Q4HRS PRN PO Pain/Fever Last administered on 07/13/16 16:31; Start 06/16/16 at 03:45 Aspirin (Aspirin Enteric Coated) 81 mg DAILY PO Last administered on 07/14/16 09:24; Start 06/16/16 at 09:00 Cyanocobalamin (Vitamin B-12) 1,000 mcg DAILY PO Last administered on 09:23; Start 06/16/16 at 09:00 Docusate Sodium (Colace) 100 mg DAILY PO Last administered on 07/14/16 09:23; Start 06/16/16 at 09:00 Finasteride (Proscar) 5 mg DAILY PO Last administered on 07/14/16 09:22; Start 06/16/16 at 09:00 Magnesium Hydroxide (Milk Of Magnesia) 400 mg PRN DAILY PRN PO CONSTIPATION Last administered on 06/28/16 06:22; Start 06/16/16 at 03:45 Tamsulosin HCl (Flomax) 0.4 mg QHS PO Last administered on 07/14/16 19:52; Start 06/16/16 at 21:00 Diltiazem HCl (Cardizem 24hr Cd) 120 mg DAILY PO Last administered on 09:23; Start 06/16/16 at 09:00 Multivitamins/ Minerals (I-Matthew) 1 tab DAILY PO Supplement Last administered on 07/14/16 09:00; Start 06/16/16 at 09:00 Ketotifen Fumarate (Zaditor) 1 drop BID OU Last administered on 06/17/16 09:54 ; Start 06/16/16 at 09:00; Stop 06/17/16 at 15:00; Status DC Fish Oil (Fish Oil) 1,000 mg DAILY PO Supplement Last administered on 07/14/16 09:23; Start 06/16/16 at 09:00 Thiamine HCl (Vitamin B-1) 250 mg BID PO supplement Last administered on 19:53; Start 06/16/16 at 09:00 Trazodone HCl (Desyrel) 50 mg PRN QHS PRN PO insomnia Last administered on 07/07 21:00; Start 06/16/16 at 21:00 Ketotifen Fumarate (Zaditor) 1 drop BID OU Last administered on 07/14/16 09:25 ; Start 06/17/16 at 15:00; Stop 07/14/16 at 18:59; Status DC Divalproex Sodium (Depakote) 375 mg BID PO Last administered on 06/19/16 10:18 ; Start 06/17/16 at 21:00; Stop 06/19/16 at 15:14; Status DC Levothyroxine Sodium (Synthroid) 25 mcg DAILY07 PO Last administered on 05:22; Start 06/18/16 at 07:00 Vitamin D (Vitamin D3) 50,000 unit WEEKLY PO Last administered on 07/07/16 09: 06; Start 06/24/16 at 09:00 Divalproex Sodium (Depakote) 500 mg BID PO Last administered on 06/23/16 10:15 ; Start 06/19/16 at 21:00; Stop 06/23/16 at 18:51; Status DC Risperidone (Risperdal) 0.125 mg BID PO Last administered on 06/24/16 08:51; Start 06/22/16 at 21:00; Stop 06/24/16 at 18:20; Status DC Divalproex Sodium (Depakote) 625 mg BID PO Last administered on 06/27/16 07:54 ; Start 06/23/16 at 21:00; Stop 06/27/16 at 18:26; Status DC Risperidone (Risperdal) 0.125 mg TID PO Last administered on 07/10/16 14:19; Start 06/24/16 at 18:30; Stop 07/10/16 at 19:14; Status DC Trazodone HCl (Desyrel) 25 mg TID PO Last administered on 06/28/16 12:57; Start 06/24/16 at 21:00; Stop 06/28/16 at 19:29; Status DC Divalproex Sodium (Depakote) 750 mg BID PO Last administered on 07/14/16 19:52 ; Start 06/27/16 at 21:00 Trazodone HCl (Desyrel) 25 mg TID@,, PO Last administered on 07/14/16 16 :40; Start 06/29/16 at 09:00 Cefpodoxime Proxetil (Vantin) 200 mg BID PO Last administered on 07/02/16 08: 50; Start 06/30/16 at 12:30; Stop 07/02/16 at 17:27; Status DC Doxycycline Hyclate (Vibra-Tab) 100 mg BID PO Last administered on 07/12/16 09 :53; Start 07/02/16 at 21:00; Stop 07/12/16 at 11:46; Status DC Lidocaine (Lidoderm) 1 patch DAILY TD Last administered on 07/14/16 09:25; Start 07/03/16 at 09:00 Benztropine Mesylate (Cogentin) 1 mg 1X ONCE PO Last administered on 08:31; Start 07/10/16 at 08:00; Stop 07/10/16 at 08:05; Status DC Benztropine Mesylate (Cogentin) 1 mg HS PO Last administered on 07/14/16 19:52 ; Start 07/10/16 at 21:00 Risperidone (Risperdal) 0.125 mg BID PO Last administered on 07/14/16 19:54; Start 07/10/16 at 21:00 Active Scripts Active Reported Acetaminophen 325 Mg Tablet 650 Mg PO BID Trazodone Hcl 50 Mg Tablet 50 Mg PO HS Thiamine Hcl 250 Mg Tablet 250 Mg PO BID Quetiapine Fumarate 50 Mg Tablet 50 Mg PO DAILY Quetiapine Fumarate 100 Mg Tablet 100 Mg PO HS Milk Of Magnesia (Magnesium Hydroxide) 400 Mg/5 Ml Oral.susp 400 Mg PO PRN DAILY PRN Pataday (Olopatadine Hcl) 2.5 Ml Drops 1 Drop OU PRN PRN Diltiazem Hcl Tablet (Diltiazem Hcl) 60 Mg Tablet 120 Mg PO DAILY Chlorpromazine Hcl 25 Mg Tablet 12.5 Mg PO BID Lorazepam 1 Mg Tablet 1 Mg PO PRN Q4HRS PRN Proscar (Finasteride) 5 Mg Tablet 5 Mg PO DAILY Flomax (Tamsulosin Hcl) 0.4 Mg Cap.er.24h 0.4 Mg PO QHS [place] 3 Fish Oil Softgel ([place]-3 Fatty Acids/Fish Oil) 1 Each Capsule.dr 1,200 Mg PO DAILY Donepezil Hcl 10 Mg Tablet 10 Mg PO DAILY Depakote Er (Divalproex Sodium) 250 Mg Tab.er.24h 375 Mg PO BID Namenda (Memantine Hcl) 10 Mg Tablet 10 Mg PO BID Tylenol (Acetaminophen) 325 Mg Tablet 650 Mg PO PRN Q4HRS PRN Vitamin B-12 (Cyanocobalamin (Vitamin B-12)) 1,000 Mcg Tablet 1,000 Mcg PO DAILY Aspirin Ec (Aspirin) 81 Mg Tablet.dr 81 Mg PO DAILY Multivitamins (Multivitamin) 1 Each Tablet 1 Tab PO DAILY Docusate Sodium 100 Mg Capsule 100 Mg PO DAILY Diagnosis: Problems: (1) Agitation (2) Anxiety disorder (3) Dementia in Alzheimer's disease with delusions (4) Dementia in Alzheimer's disease with depression (5) Dementia, vascular, with delusions (6) Dementia, vascular, with depression (7) Impulse control disorder NATASHA LAIRD MD Jul 14, 2016 21:38
--- NOTE | 2016-07-15 02:18 | PN ---
DATE: 07/13/2016 This is a late entry for 07/13/2016, covers the elements not covered in my initial note. SUBJECTIVE: Per nursing report, the patient continues to have shuffling gait, but some of this is due to his low back pain. He does have some tremors, but these are better. REVIEW OF SYSTEMS: No CV, , pulmonary, eye, ENT system symptoms on review. Reliability poor. MENTAL STATUS EXAM: Oriented to himself. Insight, judgment, recent and remote memory, attention, concentration, fund of knowledge poor, consistent with his diagnosis mentioned in my initial note. DIAGNOSES: Major neurocognitive disorder, Alzheimer, vascular with delusion, depression, behavioral disturbance. Rest unchanged. PLAN: Continue current psychotropics. Cogentin 1 mg at bedtime, Risperdal 0.125 mg b.i.d., Depakote 750 b.i.d., level therapeutic at 66, Aricept 10 mg a day, Ativan p.r.n., Namenda 10 b.i.d., trazodone ____. MAN RebeccaAlida LAIRD MD DR: ONEYDA/ozzie JOB#: [id number] / [id number]
[2016-07-15] MEDS ORDERED: BENZ2AMP4 IJ (03:33)
[2016-07-15] MEDS ORDERED: BENZ1TAB5 PO (03:36)
[2016-07-15] MEDS ORDERED: CHOL50004 PO (03:53)
[2016-07-15] MEDS ORDERED: CHOL5000 PO (03:53)
[2016-07-15] MEDS ORDERED: KETO5DRO7 OU (03:57)
[2016-07-15] MEDS ORDERED: LEVO25TA4 PO (03:58)
[2016-07-15] MEDS ORDERED: LIDO700A27 TP (04:02)
[2016-07-15] MEDS ORDERED: MAG355OR22 PO (04:06)
[2016-07-15] MEDS ORDERED: MAG30ORA2 PO (04:10)
[2016-07-15] MEDS ORDERED: [UNRECOGNIZED DRUG - CODE] TP (04:13)
[2016-07-15] MEDS ORDERED: RISP0.253 PO (04:15)
[2016-07-15] MEDS ORDERED: TRAZ50TA15 PO ×2 (04:17→08:22)
[2016-07-15] MEDS: LEVOTHYROXINE 25 MCG TABLET. PO SCH (05:33)
[2016-07-15 06:26] VITALS: BP 133/80
[2016-07-15] MEDS: MULTIVITAMIN I-VITE TABLET. PO SCH (09:00)
[2016-07-15 09:20] VITALS: BP 133/80
[2016-07-15] MEDS: DILTIAZEM HCL 120 MG CAP.ER.24H PO SCH (09:20)
[2016-07-15] MEDS: OMEGA-3 FATTY ACIDS/FISH OIL 1,000 MG CAPSULE. PO SCH (09:20)
[2016-07-15] MEDS: ACETAMINOPHEN 325 MG TABLET PO SCH (09:20)
[2016-07-15] MEDS: DONEPEZIL HCL 10 MG TABLET PO SCH (09:21)
[2016-07-15] MEDS: MEMANTINE 10 MG TABLET. PO SCH (09:21)
[2016-07-15] MEDS: DOCUSATE SODIUM 100 MG CAPSULE PO SCH (09:21)
[2016-07-15] MEDS: ASPIRIN ENTERIC COATED 81 MG TABLET.DR. PO SCH (09:21)
[2016-07-15] MEDS: risperiDONE 0.25 MG TABLET. PO SCH (09:21)
[2016-07-15] MEDS: CHOLECALCIFEROL (VITAMIN D3) 50,000 UNIT CAPSULE PO SCH (09:21)
[2016-07-15] MEDS: FINASTERIDE 5 MG TABLET PO SCH (09:21)
[2016-07-15] MEDS: CYANOCOBALAMIN (VITAMIN B-12) 1,000 MCG TABLET. PO SCH (09:21)
[2016-07-15] MEDS: THIAMINE 100 MG TABLET. PO SCH (09:22)
[2016-07-15] MEDS: DIVALPROEX SODIUM 250 MG TABLET.DR. PO SCH (09:22)
[2016-07-15] MEDS: LIDOCAINE (700MG/PATCH) PATCH. TD SCH (09:22)
[2016-07-15] MEDS: traZODone 50 MG TABLET. PO SCH (09:24)
--- NOTE | 2016-07-16 04:15 | PN ---
DATE: 07/14/2016 This late entry for 07/14/2016 covers elements not covered in my initial note. SUBJECTIVE: The patient remains confused, not agitated, aggressive, gait is somewhat shuffling but this is perhaps due to his back pain. REVIEW OF SYSTEMS: No CV, , pulmonary, eye, ENT system symptoms on review. MENTAL STATUS EXAM: Oriented to himself. Insight, judgment, recent and remote memory, attention, concentration, fund of knowledge poor, consistent with his diagnosis mentioned in my initial note. PLAN: Continue psychotropics mentioned in my initial note. Discharge to correction on 07/15/2016, MAN Josh LAIRD MD DR: ONEYDA/ozzie JOB#: [id number] / [id number]
--- NOTE | 2016-07-17 16:05 | DS ---
DATE OF DISCHARGE: 07/15/2016 DISCHARGE SUMMARY/PSYCHIATRIC PROGRESS NOTE This is late entry of 07/15/2016, covers elements not covered in my initial note. REASON FOR ADMISSION: Briefly, the patient is a 75-year-old male admitted from [place], [place] on account of increased agitation after the patient eloped, was posturing at the staff, threatened to butt the door. He was refusing self-care, refusing to shower, high risk sexual behaviors. Behaviors were deemed to be dangerous, unmanageable, having failed outpatient psychiatric interventions for his dementia with delusions, he was referred for inpatient stabilization. SIGNIFICANT FINDINGS AND CLINICAL COURSE: Following admission, the patient was seen daily individually by myself from a psychiatric standpoint and medical followup with Dr. Hidalgo/Dr. Vyas. The patient was extremely agitated, aggressive, threatening. Adjustments were made in his psychotropics and he seemed to respond to a combination of Risperdal 0.125 mg twice a day, Depakote 750 mg b.i.d., Cogentin 1 mg at bedtime was added for shuffling gait noted on the Risperdal, Aricept 10 mg a day, Ativan p.r.n., Namenda 10 b.i.d., trazodone 50 at bedtime, july repeat x 1 and scheduled trazodone 25 mg 3 times a day for his anxiety, mood lability and he seemed to respond very well to this and the change to Risperdal, prior to which he was extremely agitated and aggressive on our unit, threatening. Sexualized behavior improved as well. Prior to discharge on 07/15/2016, temperature afebrile, BP 135/82, pulse 88, respirations 20 and O2 sats 97%. REVIEW OF SYSTEMS: No CV, , pulmonary, eye, ENT system symptoms on review. Reliability poor. MENTAL STATUS EXAMINATION: Oriented to himself. Insight, judgment, recent and remote memory, attention, concentration, fund of knowledge poor, consistent with his diagnosis. He was not very verbal, often responses monosyllabic, but smiling, less paranoid. LABORATORY DATA: Reviewed. FINAL DIAGNOSES: Major neurocognitive disorder, Alzheimer, vascular with depression, delusion, behavioral disturbance; anxiety disorder, unspecified; impulse control disorder, unspecified. Rest diagnoses unchanged. DISCHARGE MEDICATIONS: Please refer to the MRAD. DISCHARGE INSTRUCTIONS: Outpatient psychiatric and medical followup at the assisted. NATASHA LAIRD MD DR: ONEYDA/ozzie JOB#: [id number] / [id number]
== END 2016-07-15 11:15 | DRG 884 ==
LOC: ER 23:33 → GEROPSY 06-16 02:46
PROVIDERS: ADMIT Psychiatry & Neurology Psychiatry; ATTEND Psychiatry & Neurology Psychiatry
DX: F01.51 Vascular dementia, unspecified severity, with behavioral disturbance (principal); F02.81 Dementia in other diseases classified elsewhere, unspecified severity, with behavioral disturbance; N39.0 Urinary tract infection, site not specified; G30.9 Alzheimer's disease, unspecified; E66.9 Obesity, unspecified; F32.9 Major depressive disorder, single episode, unspecified; F41.9 Anxiety disorder, unspecified; F63.9 Impulse disorder, unspecified; I11.9 Hypertensive heart disease without heart failure; N40.0 Benign prostatic hyperplasia without lower urinary tract symptoms; Z66 Do not resuscitate; F10.10 Alcohol abuse, uncomplicated; G89.29 Other chronic pain; K59.09 Other constipation; M54.5 Low back pain; Z91.19 Patient's noncompliance with other medical treatment and regimen
CPT/HCPCS: 36415; 70450; 71010; 72131; 80053; 80061; 80164; 81001; 82010; 82140; 82306; 82607; 83036; 83540; 83550; 83735; 84436; 84439; 84443; 84480; 84481; 85027; 85610; 85651; 86140; 86592; 86593; 87086; 87186; 93005; G0480; G0481; G6038; Q0161; 80196; 97116; 97530; 99285-25